=== PATIENT | male | born 1965 | race Caucasian/White ===

== ENCOUNTER 2021-03-15 14:18 | Inpatient (IN) | payer BC ==
[2021-03-15] MEDS ORDERED: Sodium Chloride 0.9% 10 ML Syringe FLUSH PRN (15:04)
[2021-03-15] MEDS ORDERED: Ondansetron 4 MG/2 ML SDV IVPUSH ONE (15:04)
[2021-03-15] MEDS ORDERED: Sodium Chloride 0.9% 1,000 ML IV SCH (15:15)
[2021-03-15 15:26] LABS: CORONAVIRUS COVID-19 NAA POSITIVE (NEGATIVE)
--- NOTE | 2021-03-15 16:32 | CR ---
Chest: Portable view of the chest was obtained. Comparison: No prior chest imaging is available. Diffuse increased density throughout the right lung is seen. Lesser density is also seen throughout the left lung. Heart size is normal. Tortuous thoracic aorta is seen. Bony structures show nothing acute. Impression: 1. Diffuse parenchymal densities within both sides of the chest, findings are suspicious for COVID-19 pneumonia. Please correlate. Diagnostic code #3
--- NOTE | 2021-03-15 16:35 | EDM.PDOC ---
ED HPI GENERAL MEDICAL PROBLEM - General Chief Complaint: Respiratory Problem Stated Complaint: [facility] Time Seen by Provider: 03/15/21 14:33 Source of Information: Reports: Patient, EMS History Limitations: Reports: No Limitations - History of Present Illness INITIAL COMMENTS - FREE TEXT/NARRATIVE: The patient presents by [facility] for shortness of breath and hypoxia. This started last Thursday. He was checked for COVID then and he was negative. He has gotten worse with fever, chills, cough, shortness of breath, nausea, and generalized weakness. He did not get vaccinated. He has not been able to eat or drink. He went to [facility] and his oxygen saturations were in the 60s. He came by EMS with a nonrebreather. We were able to get him on nasal cannula at 6L and he was 92%. He has no chest pain, abdominal pain or dysuria. He does have some diarrhea. He does not smoke. He has no lung problems like asthma or COPD. He does have a history of hypertension. Onset: Gradual Duration: Day(s): (9) Severity: Moderate Improves with: Reports: None Worsens with: Reports: None Associated Symptoms: Reports: Cough, Fever/Chills, Nausea/Vomiting, Shortness of Breath. Denies: Chest Pain, Headaches - Related Data Allergies Allergy/AdvReac Type Severity Reaction Status Date / Time No Known Allergies Allergy Verified 03/15/21 14:39 Home Meds: Home Meds Lisinopril/Hydrochlorothiazide [Lisinopril-Hctz 20-25 mg Tab] 1 tab PO DAILY 03/15/21 [History] Past Medical History Cardiovascular History: Reports: Hypertension Social & Family History - Tobacco Use Tobacco Use Status *Q: Never Tobacco User Second Hand Smoke Exposure: No - Caffeine Use Caffeine Use: Reports: None ED ROS GENERAL - Review of Systems Review Of Systems: See Below Constitutional: Reports: Fever, Chills, Malaise, Weakness, Fatigue HEENT: Reports: No Symptoms Respiratory: Reports: Shortness of Breath, Cough Cardiovascular: Reports: No Symptoms Endocrine: Reports: No Symptoms GI/Abdominal: Reports: Nausea. Denies: Abdominal Pain, Vomiting : Reports: No Symptoms Musculoskeletal: Reports: No Symptoms Skin: Reports: No Symptoms Neurological: Reports: No Symptoms ED EXAM, GENERAL - Physical Exam Exam: See Below Exam Limited By: No Limitations General Appearance: Alert, No Apparent Distress Ears: Normal External Exam Nose: Normal Inspection Head: Atraumatic, Normocephalic Neck: Normal Inspection Respiratory/Chest: No Respiratory Distress, Decreased Breath Sounds Cardiovascular: Regular Rate, Rhythm, No Edema, No Murmur GI/Abdominal: Soft, Non-Tender, No Organomegaly Back Exam: Normal Inspection Extremities: Normal Inspection #1 Interpretation EKG Date: 03/15/21 Time: 14:47 Rhythm: Other (sinus tachycardia) Rate (Beats/Min): 105 [place]: Normal P-Wave: Present QRS: Normal ST-T: Other (flattened T waves in the lateral leads) QT: Normal Course - Vital Signs Last Recorded V/S: Last Vital Signs Temp 99.1 F 03/15/21 14:38 Pulse 101 H 03/15/21 14:38 Resp 18 03/15/21 14:38 BP 129/77 03/15/21 14:38 Pulse Ox 90 L 03/15/21 15:56 - Orders/Labs/Meds Orders: Active Orders 24 hr Category Date Time Status Cardiac Monitoring [RC] . DIRECTED Care 03/15/21 15:04 Active Oxygen Therapy [RC] PRN Care 03/15/21 15:04 Active Peripheral IV Care [RC] . DIRECTED Care 03/15/21 15:04 Active Sodium Chloride 0.9% [Normal Saline] 1,000 ml Med 03/15/21 15:15 Active IV .BOLUS Sodium Chloride 0.9% [Saline Flush] Med 03/15/21 15:04 Active 10 ml FLUSH ASDIRECTED PRN ED Antiemetic Medication Reflex [OM.PC] Stat Oth 03/15/21 15:04 Ordered Peripheral IV Insertion Adult [OM.PC] Stat Oth 03/15/21 15:04 Ordered EKG 12 Lead [EK] Stat Ther 03/15/21 14:32 Ordered Medication Orders Sodium Chloride (Normal Saline) 1,000 mls @ 1,000 mls/hr IV .BOLUS KAR Last Admin: 03/15/21 15:53 Dose: 1,000 mls/hr Documented by: CHRIS Sodium Chloride (Sodium Chloride 0.9% 10 Ml Syringe) 10 ml FLUSH ASDIRECTED PRN PRN Reason: Keep Vein Open Last Admin: 03/15/21 15:53 Dose: 10 ml Documented by: CHRIS Labs: Laboratory Tests 03/15/21 03/15/21 03/15/21 Range/Units 14:25 15:42 15:42 WBC 13.47 H (4.23-9.07) K/mm3 RBC 4.81 (4.63-6.08) M/mm3 Hgb 14.2 (13.7-17.5) gm/dl Hct 41.9 (40.1-51.0) % MCV 87.1 (79.0-92.2) fl MCH 29.5 (25.7-32.2) pg MCHC 33.9 (32.2-35.5) g/dl RDW Std Deviation 43.3 (35.1-43.9) fL Plt Count 346 H (163-337) K/mm3 MPV 9.7 (9.4-12.3) fl Neut % (Auto) 84.2 H (34.0-67.9) % Lymph % (Auto) 4.5 L (21.8-53.1) % Stark % (Auto) 8.8 (5.3-12.2) % Eos % (Auto) 0.4 L (0.8-7.0) Baso % (Auto) 0.4 (0.1-1.2) % Neut # (Auto) 11.34 H (1.78-5.38) K/mm3 Lymph # (Auto) 0.61 L (1.32-3.57) K/mm3 Stark # (Auto) 1.18 H (0.30-0.82) K/mm3 Eos # (Auto) 0.06 (0.04-0.54) K/mm3 Baso # (Auto) 0.05 (0.01-0.08) K/mm3 Manual Slide Review PT 12.4 H (9.7-12.0) SECONDS INR 1.12 APTT 25.5 (21.7-31.4) SECONDS D-Dimer, Quantitative > 35.20 H (0.19-0.50) mg/L Sodium (136-145) mEq/L Potassium (3.5-5.1) mEq/L Chloride (98-107) mEq/L Carbon Dioxide (21-32) mEq/L Anion Gap (5-15) BUN (7-18) mg/dL Creatinine (0.7-1.3) mg/dL Est Cr Clr Drug Dosing mL/min Estimated GFR (MDRD) (>60) mL/min BUN/Creatinine Ratio (14-18) Glucose (70-99) mg/dL Lactic Acid (0.4-2.0) mmol/L Calcium (8.5-10.1) mg/dL Total Bilirubin (0.2-1.0) mg/dL AST (15-37) U/L ALT (16-63) U/L Alkaline Phosphatase (46-116) U/L C-Reactive Protein (<1.0) mg/dL Total Protein (6.4-8.2) g/dl Albumin (3.4-5.0) g/dl Globulin gm/dL Albumin/Globulin Ratio (1-2) Influenza Type A RNA Negative (NEGATIVE) Influenza Type B RNA Negative (NEGATIVE) SARS-CoV-2 RNA (RACHNA) Positive H (NEGATIVE) 03/15/21 03/15/21 Range/Units 15:42 15:42 WBC (4.23-9.07) K/mm3 RBC (4.63-6.08) M/mm3 Hgb (13.7-17.5) gm/dl Hct (40.1-51.0) % MCV (79.0-92.2) fl MCH (25.7-32.2) pg MCHC (32.2-35.5) g/dl RDW Std Deviation (35.1-43.9) fL Plt Count (163-337) K/mm3 MPV (9.4-12.3) fl Neut % (Auto) (34.0-67.9) % Lymph % (Auto) (21.8-53.1) % Stark % (Auto) (5.3-12.2) % Eos % (Auto) (0.8-7.0) Baso % (Auto) (0.1-1.2) % Neut # (Auto) (1.78-5.38) K/mm3 Lymph # (Auto) (1.32-3.57) K/mm3 Stark # (Auto) (0.30-0.82) K/mm3 Eos # (Auto) (0.04-0.54) K/mm3 Baso # (Auto) (0.01-0.08) K/mm3 Manual Slide Review PT (9.7-12.0) SECONDS INR APTT (21.7-31.4) SECONDS D-Dimer, Quantitative (0.19-0.50) mg/L Sodium 136 (136-145) mEq/L Potassium 3.4 L (3.5-5.1) mEq/L Chloride 98 (98-107) mEq/L Carbon Dioxide 30 (21-32) mEq/L Anion Gap 11.4 (5-15) BUN 17 (7-18) mg/dL Creatinine 1.2 (0.7-1.3) mg/dL Est Cr Clr Drug Dosing 70.13 mL/min Estimated GFR (MDRD) > 60 (>60) mL/min BUN/Creatinine Ratio 14.2 (14-18) Glucose 145 H (70-99) mg/dL Lactic Acid 1.9 (0.4-2.0) mmol/L Calcium 8.6 (8.5-10.1) mg/dL Total Bilirubin 0.7 (0.2-1.0) mg/dL AST 57 H (15-37) U/L ALT 95 H (16-63) U/L Alkaline Phosphatase 50 (46-116) U/L C-Reactive Protein 23.9 H* (<1.0) mg/dL Total Protein 7.0 (6.4-8.2) g/dl Albumin 2.5 L (3.4-5.0) g/dl Globulin 4.5 gm/dL Albumin/Globulin Ratio 0.6 L (1-2) Influenza Type A RNA (NEGATIVE) Influenza Type B RNA (NEGATIVE) SARS-CoV-2 RNA (RACHNA) (NEGATIVE) Meds: Medications Generic Name Dose Route Start Last Admin Trade Name Freq PRN Reason Stop Dose Admin Sodium Chloride 1,000 mls @ 1,000 mls/hr 03/15/21 15:15 03/15/21 15:53 Normal Saline IV 1,000 mls/hr .BOLUS KAR Administration Sodium Chloride 10 ml 03/15/21 15:04 03/15/21 15:53 Sodium Chloride 0.9% 10 Ml Syringe FLUSH 10 ml ASDIRECTED PRN Administration Keep Vein Open Discontinued Medications Generic Name Dose Route Start Last Admin Trade Name Freq PRN Reason Stop Dose Admin Apixaban 10 mg 03/15/21 17:25 03/15/21 17:40 Apixaban 5 Mg Tab PO 03/15/21 17:26 10 mg ONETIME ONE Administration Dexamethasone 6 mg 03/15/21 16:42 03/15/21 17:26 Dexamethasone 4 Mg/Ml Sdv IVPUSH 03/15/21 16:43 6 mg ONETIME ONE Administration Remdesivir 200 mg/ Sodium 250 mls @ 250 mls/hr 03/15/21 16:42 03/15/21 17:26 Chloride IV 03/15/21 16:43 250 mls/hr ONETIME ONE Administration Ondansetron HCl 4 mg 03/15/21 15:04 03/15/21 15:53 Ondansetron 4 Mg/2 Ml Sdv IVPUSH 03/15/21 15:05 4 mg ONETIME ONE Administration - Re-Assessments/Exams Free Text/Narrative Re-Assessment/Exam: 03/15/21 16:39 I ordered oxygen, IV NS 1L bolus, zofran 4mg IV, EKG, CXR and labs. His EKG shows a sinus tachycardia with no acute changes. His WBC was elevated at 13.47. His D-dimer was elevated at >35.2. His K was a little low at 3.4. His glucose was elevated at 145. His AST was elevated at 57. His ALT was elevated at 95. His CRP was elevated at 23.9. He is COVID positive. His CXR shows bilateral COVID pneumonia. I have ordered a CT angio of his chest, remdesivir, and dexamethasone. 03/15/21 17:[address] angio of his chest shows slight pulmonary emboli within the right lower segmental and subsegmental pulmonary arteries. No findings of right heart dysfunction are seen. Dilated left proximal ureter and left kidney collecting system. Difficult to exclude an nonvisualized left ureteral obstruction. Nonobstructing calculi are seen within both kidneys. Minimal cortical cyst is also noted within the left kidney. CT abdomen would be needed to further evaluate if clinically indicated. Diffuse change of bilateral COVID 19 pneumonia. I have ordered a CT of his abdomen and pelvis without contrast. 03/15/21 18:14 I feel this patient needs to be admitted. I talked with our hospitalist Dr Aj and he agreed to the admission. 03/15/21 18:[address] of his abdomen and pelvis shows dilated collecting system within the left kidney, contrast from previous chest CT is seen within the kidney. Contrast is also noted with the left ureter. There is change in contrast diameter within the proximal ureter. Difficult to completely exclude area of scarring or even early transitional cell carcinoma as on etiology for the contrast caliber change. Recommend referral to urologist at some time to further evaluate. Changes of COVID-19 pneumonia within the both lung bases. Other findings believed to be incidental. No additional abnormality is identified on noncontrast CT study of the abdomen and pelvis which shows contrast because of earlier CT exam. Departure - Departure Time of Disposition: 18:50 Disposition: Admitted As Inpatient 64 Condition: Serious Clinical Impression: Hypoxia, COVID-19, Pneumonia due to COVID-19 virus, Left ureter dilated Pulmonary emboli Qualifiers: Pulmonary embolism type: other Chronicity: acute Acute cor pulmonale presence: without acute cor pulmonale Qualified Code(s): I26.99 - Other pulmonary embolism without acute cor pulmonale - Discharge Information Referrals: Ana M Goldstein NP [Primary Care Provider] - Forms: ED Department Discharge Sepsis Event Note (ED) - Focused Exam Vital Signs: Vital Signs Temp Pulse Resp BP Pulse Ox Pulse Ox 03/15/21 15:56 90 L 03/15/21 14:38 99.1 F 101 H 18 129/77 93 L - My Orders Last 24 Hours: My Active Orders 03/15/21 14:32 EKG 12 Lead [EK] Stat 03/15/21 15:04 Cardiac Monitoring [RC] . DIRECTED Oxygen Therapy [RC] PRN Peripheral IV Care [RC] . DIRECTED Sodium Chloride 0.9% [Saline Flush] 10 ml FLUSH ASDIRECTED PRN ED Antiemetic Medication Reflex [OM.PC] Stat Peripheral IV Insertion Adult [OM.PC] Stat 03/15/21 15:15 Sodium Chloride 0.9% [Normal Saline] 1,000 ml IV .BOLUS - Assessment/Plan Last 24 Hours: My Active Orders 03/15/21 14:32 EKG 12 Lead [EK] Stat 03/15/21 15:04 Cardiac Monitoring [RC] . DIRECTED Oxygen Therapy [RC] PRN Peripheral IV Care [RC] . DIRECTED Sodium Chloride 0.9% [Saline Flush] 10 ml FLUSH ASDIRECTED PRN ED Antiemetic Medication Reflex [OM.PC] Stat Peripheral IV Insertion Adult [OM.PC] Stat 03/15/21 15:15 Sodium Chloride 0.9% [Normal Saline] 1,000 ml IV .BOLUS
[2021-03-15] MEDS ORDERED: Dexamethasone 4 MG/ML SDV IVPUSH ONE (16:42)
[2021-03-15] MEDS ORDERED: REMDESIVIR 200 MG in Sodium Chloride 0.9% 250 ML IV ONE (16:42)
[2021-03-15] MEDS ORDERED: Apixaban 5 MG Tab PO ONE (17:25)
--- NOTE | 2021-03-15 17:25 | CT ---
CT chest Technique: Multiple axial sections were obtained from above the lung apices inferiorly through the lung bases. Intravenous contrast was utilized. Study has been performed as a pulmonary angiogram protocol. Comparison: Prior chest x-ray performed earlier on the same day (3:06 PM). Findings: Pulmonary arteries are not optimally opacified. There are some filling defects being seen within the segmental and subsegmental branches within the right lower lobe which are felt compatible with pulmonary emboli. Thoracic aorta shows no aneurysm. Small lymph nodes are seen within the mediastinum which are felt to be within normal limits. No axillary adenopathy is seen. No pericardial thickening is seen. No right heart dysfunction is seen Visualized upper abdominal structures show a slightly dilated proximal left ureter and dilated renal pelvis and calyces. Difficult to exclude a ureteral obstruction on this exam. There are 2 stones seen within the left kidney and one stone within the right kidney compatible with nonobstructing calculi. Left kidney shows a small cortical cyst measuring 1.0 cm. Other portions of the visualized upper abdominal structures appear within normal limits. Lung window settings were reviewed which show diffuse pulmonary densities within both lungs, worse on the right side. No pleural effusions are seen. Bone window settings were reviewed which show minimal degenerative change within the thoracic spine. Old fracture is seen within a left lower rib. No acute osseous finding is seen. Impression: 1. Slight pulmonary emboli within the right lower segmental and subsegmental pulmonary arteries. No findings of right heart dysfunction are seen. 2. Dilated left proximal ureter and left kidney collecting system. Difficult to exclude a nonvisualized left ureteral obstruction. Nonobstructing calculi are seen within both kidneys. Minimal cortical cyst is also noted within the left kidney. CT abdomen would be needed to further evaluate if clinically indicated. 3. Diffuse change of bilateral COVID-19 pneumonia. Diagnostic code #5 Report was discussed with Dr. Ceja on 03/15/21, 5:22 PM [facility].
--- NOTE | 2021-03-15 18:40 | CT ---
CT abdomen and pelvis Technique: Multiple axial sections were obtained from above the dome of the diaphragm inferiorly through the pubic symphysis. Intravenous contrast is seen from prior CT chest. No oral contrast has been given. Reconstructed coronal and sagittal images were obtained. Comparison: No prior CT abdomen or pelvis studies available. Findings: Patchy increased density is noted within both lung bases. Liver shows no focal parenchymal abnormality. Spleen size is normal. Adrenal glands show no nodule. Pancreas is within normal limits. Gallbladder contains no calcified gallstones. Kidneys show contrast excretion. Dilated collecting system is seen within the left kidney. Left ureter is diffusely opacified. Right ureter is not completely opacified which is normal. The proximal left ureter is dilated. At the level of caliber change there is minimal irregularity within the contrast column of the ureter. This is nondescript regarding etiology. No definite obstruction of the left ureter seen. Contrast is noted within the bladder. Abdominal aorta shows no aneurysm. No retroperitoneal adenopathy is seen. No mesenteric abnormalities are seen. Fat containing umbilical hernia is noted. Appendix is seen which is normal in size. No pelvic mass or adenopathy is seen. Bone window settings were reviewed which show disc space narrowing at L5-S1. Mild disc space narrowing is noted at L2-3. Mild scattered endplate osteophytes are seen. Impression: 1. Dilated collecting system within the left kidney, contrast from previous chest CT is seen within the kidney. Contrast is also noted within the left ureter. There is change in contrast diameter within the proximal ureter. Difficult to completely exclude area of scarring or even early transitional cell carcinoma as an etiology for the contrast caliber change. Recommend referral to urologist at some time to further evaluate. 2. Changes of COVID-19 pneumonia within the both lung bases. 3. Other findings believed to be incidental as described above. 4. No additional abnormality is identified on noncontrast CT study of the abdomen and pelvis which shows contrast because of earlier CT exam. Diagnostic code #3
[2021-03-16] MEDS ORDERED: Acetaminophen 325 MG Tab PO PRN ×2 (00:09→06:45)
--- NOTE | 2021-03-16 06:43 | PCM.HP.2 ---
H&P History of Present Illness - General Date of Service: 03/16/21 Admit Problem/Dx: Admission Diagnosis/Problem Admission Diagnosis/Problem acute respiratory failure associated with COVID-19 pneumonia and pulmonary emboli. Source of Information: Patient History Limitations: Reports: No Limitations - History of Present Illness Initial Comments - Free Text/Narative: The patient is a 55-year-old gentleman who had been brought to the emergency department via [facility] for shortness of breath and hypoxia. The patient was found to be positive for Covid 19 pneumonia. The patient says that his symptoms started 4 days ago. He did have oxygen saturations in the low 60s. The patient's main concern at this time is severe shortness of breath. Patient also reports fever and chills. He has had weakness. The patient had CT scan done in the emergency department which is shown bilateral pulmonary emboli. The patient otherwise has been healthy and has been taking medication for hypertension. Not using tobacco. Onset of Symptoms: Reports: Gradual Duration of Symptoms: Reports: Day(s):, Getting Worse Location: Reports: Generalized Severity: Mild Improves with: Reports: Rest, Other (Oxygen support) Worsens with: Reports: Movement Context: Reports: Sick Contact, Other (COVID-19 pneumonia) Associated Symptoms: Reports: Cough, Diaphoresis, Fever/Chills - Related Data Allergies/Adverse Reactions: Allergies Allergy/AdvReac Type Severity Reaction Status Date / Time No Known Allergies Allergy Verified 03/15/21 14:39 Home Medications: Home Meds Lisinopril/Hydrochlorothiazide [Lisinopril-Hctz 20-25 mg Tab] 1 tab PO DAILY 03/15/21 [History] Past Medical History HEENT History: Reports: None Cardiovascular History: Reports: Hypertension Respiratory History: Reports: None Gastrointestinal History: Reports: None Genitourinary History: Reports: None Musculoskeletal History: Reports: None Neurological History: Reports: None Psychiatric History: Reports: None Endocrine/Metabolic History: Reports: None Hematologic History: Reports: None Immunologic History: Reports: None Oncologic (Cancer) History: Reports: None Dermatologic History: Reports: None - Infectious Disease History Infectious Disease History: Reports: Chicken Pox Social & Family History - Family History Family Medical History: Unobtainable - Tobacco Use Tobacco Use Status *Q: Never Tobacco User Second Hand Smoke Exposure: No - Caffeine Use Caffeine Use: Reports: None - Recreational Drug Use Recreational Drug Use: No - Living Situation & Occupation Living situation: Reports: , with Spouse Occupation: Employed H&P Review of Systems - Review of Systems: Review Of Systems: See Below General: Reports: Fever, Chills, Weakness HEENT: Reports: No Symptoms Pulmonary: Reports: Shortness of Breath, Cough, Sputum Cardiovascular: Reports: No Symptoms Gastrointestinal: Reports: No Symptoms Genitourinary: Reports: No Symptoms Musculoskeletal: Reports: No Symptoms Skin: Reports: No Symptoms Psychiatric: Reports: No Symptoms Neurological: Reports: No Symptoms Hematologic/Lymphatic: Reports: No Symptoms Immunologic: Reports: No Symptoms Exam - Exam Exam: See Below - Vital Signs Vital Signs: Last Vital Signs Temp 36.6 C 03/16/21 05:14 Pulse 72 03/16/21 05:14 Resp 20 03/16/21 05:14 BP 94/47 L 03/16/21 05:14 Pulse Ox 92 L 03/16/21 05:14 Weight: 87.952 kg - Exam Quality Assessment: Supplemental Oxygen, DVT Prophylaxis General: Alert, Oriented, Cooperative HEENT: Conjunctiva Clear, EACs Clear, EOMI, Hearing Intact, Mucosa Moist & [place], PERRLA Neck: Supple, Trachea Midline Lungs: Decreased Breath Sounds, Crackles, Rales Cardiovascular: Regular Rate, Regular Rhythm GI/Abdominal Exam: Normal Bowel Sounds, Soft, Non-Tender, No Distention (Male) Exam: Deferred Rectal (Males) Exam: Deferred Back Exam: Normal Inspection, Full Range of Motion Extremities: Normal Inspection, No Pedal Edema Skin: Warm, Dry, Intact Neurological: Cranial Nerves Intact, Strength Equal Bilateral, Normal Gait, N ormal Speech Neuro Extensive - Mental Status: Alert, Oriented x3 Psychiatric: Alert, Normal Affect, Normal Mood - Patient Data Lab Results Last 24 hrs: Laboratory Results - last 24 hr 03/15/21 03/15/21 03/15/21 Range/Units 14:25 15:42 15:42 WBC 13.47 H (4.23-9.07) K/mm3 RBC 4.81 (4.63-6.08) M/mm3 Hgb 14.2 (13.7-17.5) gm/dl Hct 41.9 (40.1-51.0) % MCV 87.1 (79.0-92.2) fl MCH 29.5 (25.7-32.2) pg MCHC 33.9 (32.2-35.5) g/dl RDW Std Deviation 43.3 (35.1-43.9) fL Plt Count 346 H (163-337) K/mm3 MPV 9.7 (9.4-12.3) fl Neut % (Auto) 84.2 H (34.0-67.9) % Lymph % (Auto) 4.5 L (21.8-53.1) % [place] % (Auto) 8.8 (5.3-12.2) % Eos % (Auto) 0.4 L (0.8-7.0) Baso % (Auto) 0.4 (0.1-1.2) % Neut # (Auto) 11.34 H (1.78-5.38) K/mm3 Lymph # (Auto) 0.61 L (1.32-3.57) K/mm3 [place] # (Auto) 1.18 H (0.30-0.82) K/mm3 Eos # (Auto) 0.06 (0.04-0.54) K/mm3 Baso # (Auto) 0.05 (0.01-0.08) K/mm3 Manual Slide Review PT 12.4 H (9.7-12.0) SECONDS INR 1.12 APTT 25.5 (21.7-31.4) SECONDS D-Dimer, Quantitative > 35.20 H (0.19-0.50) mg/L Sodium (136-145) mEq/L Potassium (3.5-5.1) mEq/L Chloride (98-107) mEq/L Carbon Dioxide (21-32) mEq/L Anion Gap (5-15) BUN (7-18) mg/dL Creatinine (0.7-1.3) mg/dL Est Cr Clr Drug Dosing mL/min Estimated GFR (MDRD) (>60) mL/min BUN/Creatinine Ratio (14-18) Glucose (70-99) mg/dL Lactic Acid (0.4-2.0) mmol/L Calcium (8.5-10.1) mg/dL Total Bilirubin (0.2-1.0) mg/dL AST (15-37) U/L ALT (16-63) U/L Alkaline Phosphatase (46-116) U/L C-Reactive Protein (<1.0) mg/dL Total Protein (6.4-8.2) g/dl Albumin (3.4-5.0) g/dl Globulin gm/dL Albumin/Globulin Ratio (1-2) Influenza Type A RNA Negative (NEGATIVE) Influenza Type B RNA Negative (NEGATIVE) SARS-CoV-2 RNA (RACHNA) Positive H (NEGATIVE) 03/15/21 03/15/21 Range/Units 15:42 15:42 WBC (4.23-9.07) K/mm3 RBC (4.63-6.08) M/mm3 Hgb (13.7-17.5) gm/dl Hct (40.1-51.0) % MCV (79.0-92.2) fl MCH (25.7-32.2) pg MCHC (32.2-35.5) g/dl RDW Std Deviation (35.1-43.9) fL Plt Count (163-337) K/mm3 MPV (9.4-12.3) fl Neut % (Auto) (34.0-67.9) % Lymph % (Auto) (21.8-53.1) % [place] % (Auto) (5.3-12.2) % Eos % (Auto) (0.8-7.0) Baso % (Auto) (0.1-1.2) % Neut # (Auto) (1.78-5.38) K/mm3 Lymph # (Auto) (1.32-3.57) K/mm3 [place] # (Auto) (0.30-0.82) K/mm3 Eos # (Auto) (0.04-0.54) K/mm3 Baso # (Auto) (0.01-0.08) K/mm3 Manual Slide Review PT (9.7-12.0) SECONDS INR APTT (21.7-31.4) SECONDS D-Dimer, Quantitative (0.19-0.50) mg/L Sodium 136 (136-145) mEq/L Potassium 3.4 L (3.5-5.1) mEq/L Chloride 98 (98-107) mEq/L Carbon Dioxide 30 (21-32) mEq/L Anion Gap 11.4 (5-15) BUN 17 (7-18) mg/dL Creatinine 1.2 (0.7-1.3) mg/dL Est Cr Clr Drug Dosing 70.13 mL/min Estimated GFR (MDRD) > 60 (>60) mL/min BUN/Creatinine Ratio 14.2 (14-18) Glucose 145 H (70-99) mg/dL Lactic Acid 1.9 (0.4-2.0) mmol/L Calcium 8.6 (8.5-10.1) mg/dL Total Bilirubin 0.7 (0.2-1.0) mg/dL AST 57 H (15-37) U/L ALT 95 H (16-63) U/L Alkaline Phosphatase 50 (46-116) U/L C-Reactive Protein 23.9 H* (<1.0) mg/dL Total Protein 7.0 (6.4-8.2) g/dl Albumin 2.5 L (3.4-5.0) g/dl Globulin 4.5 gm/dL Albumin/Globulin Ratio 0.6 L (1-2) Influenza Type A RNA (NEGATIVE) Influenza Type B RNA (NEGATIVE) SARS-CoV-2 RNA (RACHNA) (NEGATIVE) Result Diagrams: 03/15/21 15:42 03/15/21 15:42 Sepsis Event Note - Evaluation Sepsis Screening Result: Sepsis Risk - Focused Exam Vital Signs: Vital Signs Temp Temp Pulse Pulse Resp BP BP 03/16/21 05:14 36.6 C 72 20 94/47 L 03/16/21 00:15 70 03/15/21 21:17 92 03/15/21 21:12 36.8 C 92 27 H 136/82 03/15/21 21:00 36.9 C 94 18 137/81 Pulse Ox 03/16/21 05:14 92 L 03/16/21 00:15 93 L 03/15/21 21:17 88 L 03/15/21 21:12 85 L 03/15/21 21:00 90 L - Problem List (1) Acute respiratory failure due to COVID-19 SNOMED Code(s): 048023681 ICD Code: U07.1 - COVID-19; J96.00 - ACUTE RESPIRATORY FAILURE, UNSP W HYPO TERESA OR HYPERCAPNIA Status: Acute Priority: High Current Visit: Yes (2) Pulmonary emboli SNOMED Code(s): 96191829 ICD Code: I26.99 - OTHER PULMONARY EMBOLISM WITHOUT ACUTE COR PULMONALE Status: Acute Priority: High Current Visit: Yes Qualifiers: Pulmonary embolism type: multiple subsegmental (without acute cor pulmonale) Qualified Code(s): I26.94 - Multiple subsegmental pulmonary emboli without acute cor pulmonale (3) Pneumonia due to COVID-19 virus SNOMED Code(s): 616559980369913505 ICD Code: U07.1 - COVID-19; J12.82 - PNEUMONIA DUE TO CORONAVIRUS DISEASE 2019 Status: Acute Priority: High Current Visit: Yes (4) Hypertension SNOMED Code(s): 48979359 ICD Code: I10 - ESSENTIAL (PRIMARY) HYPERTENSION Status: Chronic Priority: Medium Current Visit: Yes Qualifiers: Hypertension type: primary hypertension Qualified Code(s): I10 - Essential (primary) hypertension Problem List Initiated/Reviewed/Updated: Yes Orders Last 24hrs: Active Orders 24 hr Category Date Time Status Patient Status [ADT] Routine ADT 03/15/21 18:57 Active Bedrest [RC] BID Care 03/16/21 00:08 Active Cardiac Monitoring [RC] . DIRECTED Care 03/15/21 15:04 Active Incentive Spirometry [RT Incentive Spirometry] [RC] Care 03/16/21 00:36 Active Q1HWA Oxygen Therapy Adult [Oxygen Therapy] [RC] ASDIRECTED Care 03/16/21 00:08 Active Regular Diet [DIET] Diet 03/16/21 Breakfast Active Acetaminophen [TylenoL] Med 03/16/21 00:09 Active 975 mg PO Q4H PRN Apixaban [Eliquis] Med 03/16/21 09:00 Active 5 mg PO DAILY Remdesivir 100 mg Med 03/16/21 17:00 Active Sodium Chloride 0.9% [Normal Saline] 250 ml IV Q24H Sodium Chloride 0.9% [Normal Saline] 1,000 ml Med 03/15/21 15:15 Active IV .BOLUS Sodium Chloride 0.9% [Saline Flush] Med 03/15/21 15:04 Active 10 ml FLUSH ASDIRECTED PRN dexAMETHasone Med 03/16/21 16:00 Active 12 mg IV Q24H Peripheral IV Insertion Adult [OM.PC] Stat Oth 03/15/21 15:04 Ordered Pulse Oximetry Continuous Monitoring [OM.PC] Routine Oth 03/16/21 00:18 Active Code Status [Resuscitation Status] Routine Resus Stat 03/16/21 00:36 Ordered EKG 12 Lead [EK] Stat Ther 03/15/21 14:32 Ordered Medication Orders Acetaminophen (Acetaminophen 325 Mg Tab) 975 mg PO Q4H PRN PRN Reason: Pain/Fever Apixaban (Apixaban 5 Mg Tab) 5 mg PO DAILY KAR Dexamethasone (Dexamethasone 4 Mg/Ml 5 Ml Mdv) 12 mg IV Q24H KAR Sodium Chloride (Normal Saline) 1,000 mls @ 1,000 mls/hr IV .BOLUS KAR Last Admin: 03/15/21 15:53 Dose: 1,000 mls/hr Documented by: CHRIS Remdesivir 100 mg/ Sodium (Chloride) 250 mls @ 250 mls/hr IV Q24H KAR Stop: 03/19/21 17:01 Sodium Chloride (Sodium Chloride 0.9% 10 Ml Syringe) 10 ml FLUSH ASDIRECTED PRN PRN Reason: Keep Vein Open Last Admin: 03/15/21 15:53 Dose: 10 ml Documented by: CHRIS Assessment/Plan Comment:: The patient is a 55-year-old gentleman who had been admitted to acute hospitalization due to COVID-19 pneumonia and bilateral pulmonary emboli. The patient has been started on loading dose of Eliquis at 10 mg p.o. twice daily. The patient will have oxygen to keep his saturations at and around 92%. Patient had 1 200 mg dose of remdesivir in the emergency department and he will have ordered 4 doses of 100 mg IV remdesivir. Patient also has been placed on 6 mg p.o. daily of dexamethasone. The patient has been restarted on his antihypertensive medications and his vital signs will be monitored and his medications adjusted appropriately. The patient has been encouraged to ambulate. He will have regular diet as tolerated. Repeat laboratory studies have been ordered for the morning. The patient should be appropriate for discharge after completion of the remdesivir. - Mortality Measure Prognosis:: Good
[2021-03-16] MEDS ORDERED: oxyCODONE 5 MG Tab PO PRN (06:45)
[2021-03-16] MEDS ORDERED: Ondansetron 4 MG Tab.DIS PO PRN (06:45)
[2021-03-16] MEDS ORDERED: Temazepam 15 MG Cap PO PRN (06:45)
[2021-03-16] MEDS ORDERED: Docusate Sodium 100 MG Cap PO PRN (06:45)
[2021-03-16] MEDS ORDERED: Morphine 2 MG/ML SYRINGE IVPUSH PRN (06:45)
[2021-03-16] MEDS ORDERED: Apixaban 5 MG Tab PO SCH (09:00)
[2021-03-16] MEDS: Lisinopril 20 MG Tab PO SCH (09:23)
[2021-03-16] MEDS: Hydrochlorothiazide 25 MG Tab PO SCH (09:23)
[2021-03-16] MEDS: Apixaban 5 MG Tab PO SCH ×2 (09:23→20:45)
[2021-03-16] MEDS: Albuterol/Ipratropium 3.0-0.5 MG/3 ML Neb Soln NEB PRN ×3 (09:46→17:54)
[2021-03-16] MEDS: REMDESIVIR 100 MG in Sodium Chloride 0.9% 250 ML IV SCH (17:03)
[2021-03-16] MEDS: Dexamethasone 4 MG/ML 5 ML MDV IV SCH (17:03)
[2021-03-17] MEDS: Albuterol/Ipratropium 3.0-0.5 MG/3 ML Neb Soln NEB PRN ×5 (02:20→18:05)
--- NOTE | 2021-03-17 07:29 | PCM.PN ---
- General Info Date of Service: 03/17/21 Admission Dx/Problem (Free Text): Admission Diagnosis/Problem Admission Diagnosis/Problem acute respiratory failure associated with COVID-19 pneumonia and pulmonary emboli. Subjective Update: The patient is a 55-year-old gentleman who was admitted yesterday through the emergency department for COVID-19 pneumonia and bilateral pulmonary emboli. Patient today says that he is doing better. He has been breathing better. The patient has denied any new pain. He has been tolerating his diet. Functional Status: Reports: Pain Controlled, Tolerating Diet. Denies: New Symptoms - Review of Systems General: Reports: No Symptoms HEENT: Reports: No Symptoms Pulmonary: Reports: Shortness of Breath, Cough Cardiovascular: Reports: No Symptoms Gastrointestinal: Reports: No Symptoms Genitourinary: Reports: No Symptoms Musculoskeletal: Reports: No Symptoms Skin: Reports: No Symptoms Neurological: Reports: No Symptoms Psychiatric: Reports: No Symptoms - Patient Data Vitals - Most Recent: Last Vital Signs Temp 37.5 C 03/17/21 04:40 Pulse 83 03/17/21 04:40 Resp 18 03/17/21 04:40 BP 112/62 03/17/21 04:40 Pulse Ox 91 L 03/17/21 06:22 Weight - Most Recent: 90.628 kg I&O - Last 24 Hours: Intake & Output 03/16/21 03/17/21 03/17/21 22:59 06:59 14:59 Intake Total 1550 800 Output Total 1400 1050 Balance 150 -250 Lab Results Last 24 Hours: Laboratory Results - last 24 hr 03/17/21 03/17/21 03/17/21 Range/Units 05:18 05:18 05:18 WBC 14.84 H (4.23-9.07) K/mm3 RBC 4.22 L (4.63-6.08) M/mm3 Hgb 12.3 L D (13.7-17.5) gm/dl Hct 36.9 L (40.1-51.0) % MCV 87.4 (79.0-92.2) fl MCH 29.1 (25.7-32.2) pg MCHC 33.3 (32.2-35.5) g/dl RDW Std Deviation 42.2 (35.1-43.9) fL Plt Count 295 (163-337) K/mm3 MPV 9.9 (9.4-12.3) fl Neut % (Auto) 87.5 H (34.0-67.9) % Lymph % (Auto) 4.1 L (21.8-53.1) % [place] % (Auto) 6.3 (5.3-12.2) % Eos % (Auto) 0 L (0.8-7.0) Baso % (Auto) 0.1 (0.1-1.2) % Neut # (Auto) 12.99 H (1.78-5.38) K/mm3 Lymph # (Auto) 0.61 L (1.32-3.57) K/mm3 [place] # (Auto) 0.93 H (0.30-0.82) K/mm3 Eos # (Auto) 0.00 L (0.04-0.54) K/mm3 Baso # (Auto) 0.02 (0.01-0.08) K/mm3 Manual Slide Review Normal smear D-Dimer, Quantitative > 35.20 H (0.19-0.50) mg/L Sodium 136 (136-145) mEq/L Potassium 3.8 (3.5-5.1) mEq/L Chloride 101 (98-107) mEq/L Carbon Dioxide 27 (21-32) mEq/L Anion Gap 11.8 (5-15) BUN 24 H (7-18) mg/dL Creatinine 1.0 (0.7-1.3) mg/dL Est Cr Clr Drug Dosing 84.15 mL/min Estimated GFR (MDRD) > 60 (>60) mL/min BUN/Creatinine Ratio 24.0 H (14-18) Glucose 200 H (70-99) mg/dL Calcium 8.1 L (8.5-10.1) mg/dL Magnesium 2.1 (1.8-2.4) mg/dL Total Bilirubin 0.3 (0.2-1.0) mg/dL AST 60 H (15-37) U/L ALT 108 H (16-63) U/L Alkaline Phosphatase 48 (46-116) U/L C-Reactive Protein 11.7 H* (<1.0) mg/dL Total Protein 5.8 L (6.4-8.2) g/dl Albumin 2.2 L (3.4-5.0) g/dl Globulin 3.6 gm/dL Albumin/Globulin Ratio 0.6 L (1-2) Med Orders - Current: Current Medications Acetaminophen (Acetaminophen 325 Mg Tab) 650 mg PO Q4H PRN PRN Reason: Pain (Mild 1-3)/fever Albuterol/Ipratropium (Albuterol/Ipratropium 3.0-0.5 Mg/3 Ml Neb Soln) 3 ml NEB Q4H PRN PRN Reason: Shortness Of Breath/wheezing Last Admin: 03/17/21 06:10 Dose: 3 ml Documented by: Apixaban (Apixaban 5 Mg Tab) 10 mg PO BID [facility] Last Admin: 03/16/21 20:45 Dose: 10 mg Documented by: Dexamethasone (Dexamethasone 4 Mg/Ml 5 Ml Mdv) 12 mg IV Q24H [facility] Last Admin: 03/16/21 17:03 Dose: 12 mg Documented by: Docusate Sodium (Docusate Sodium 100 Mg Cap) 100 mg PO BID PRN PRN Reason: Constipation Hydrochlorothiazide (Hydrochlorothiazide 25 Mg Tab) 25 mg PO DAILY [facility] Last Admin: 03/16/21 09:23 Dose: 25 mg Documented by: Remdesivir 100 mg/ Sodium (Chloride) 250 mls @ 250 mls/hr IV Q24H [facility] Stop: 03/19/21 17:01 Last Admin: 03/16/21 17:03 Dose: 250 mls/hr Documented by: Lisinopril (Lisinopril 20 Mg Tab) 20 mg PO DAILY [facility] Last Admin: 03/16/21 09:23 Dose: 20 mg Documented by: Ondansetron HCl (Ondansetron 4 Mg Tab.Dis) 4 mg PO Q4H PRN PRN Reason: nausea, able to take PO Oxycodone HCl (Oxycodone 5 Mg Tab) 5 mg PO Q4H PRN PRN Reason: Pain (moderate 4-6) Sodium Chloride (Sodium Chloride 0.9% 10 Ml Syringe) 10 ml FLUSH ASDIRECTED PRN PRN Reason: Keep Vein Open Last Admin: 03/15/21 15:53 Dose: 10 ml Documented by: Temazepam (Temazepam 15 Mg Cap) 15 mg PO BEDTIME PRN PRN Reason: Sleep Discontinued Medications Acetaminophen (Acetaminophen 325 Mg Tab) 975 mg PO Q4H PRN PRN Reason: Pain/Fever Apixaban (Apixaban 5 Mg Tab) 10 mg PO ONETIME ONE Stop: 03/15/21 17:26 Last Admin: 03/15/21 17:40 Dose: 10 mg Documented by: Apixaban (Apixaban 5 Mg Tab) 5 mg PO DAILY KAR Dexamethasone (Dexamethasone 4 Mg/Ml Sdv) 6 mg IVPUSH ONETIME ONE Stop: 03/15/21 16:43 Last Admin: 03/15/21 17:26 Dose: 6 mg Documented by: Sodium Chloride (Normal Saline) 1,000 mls @ 1,000 mls/hr IV .BOLUS KAR Last Admin: 03/15/21 15:53 Dose: 1,000 mls/hr Documented by: Remdesivir 200 mg/ Sodium (Chloride) 250 mls @ 250 mls/hr IV ONETIME ONE Stop: 03/15/21 16:43 Last Admin: 03/15/21 17:26 Dose: 250 mls/hr Documented by: Morphine Sulfate (Morphine 2 Mg/Ml Syringe) 2 mg IVPUSH Q2H PRN PRN Reason: Pain (severe 7-10) Stop: 03/17/21 06:45 Ondansetron HCl (Ondansetron 4 Mg/2 Ml Sdv) 4 mg IVPUSH ONETIME ONE Stop: 03/15/21 15:05 Last Admin: 03/15/21 15:53 Dose: 4 mg Documented by: - Exam Quality Assessment: Supplemental Oxygen, DVT Prophylaxis General: Alert, Oriented, Cooperative, No Acute Distress HEENT: Pupils Equal, Pupils Reactive, EOMI, Mucous Membr. Moist/[place] Neck: Supple, Trachea Midline Lungs: Normal Respiratory Effort, Rales ([place]) Cardiovascular: Regular Rate, Regular Rhythm GI/Abdominal Exam: Normal Bowel Sounds, Soft, Non-Tender, No Distention (Male) Exam: Deferred Back Exam: Normal Inspection, Full Range of Motion Extremities: Normal Inspection, Normal Range of Motion, No Pedal Edema Skin: Warm, Dry, Intact Neurological: No New Focal Deficit, Normal Gait Psy/Mental Status: Alert, Normal Affect, Normal Mood - Patient Data Lab Results Last 24 hrs: Laboratory Results - last 24 hr 03/17/21 03/17/21 03/17/21 Range/Units 05:18 05:18 05:18 WBC 14.84 H (4.23-9.07) K/mm3 RBC 4.22 L (4.63-6.08) M/mm3 Hgb 12.3 L D (13.7-17.5) gm/dl Hct 36.9 L (40.1-51.0) % MCV 87.4 (79.0-92.2) fl MCH 29.1 (25.7-32.2) pg MCHC 33.3 (32.2-35.5) g/dl RDW Std Deviation 42.2 (35.1-43.9) fL Plt Count 295 (163-337) K/mm3 MPV 9.9 (9.4-12.3) fl Neut % (Auto) 87.5 H (34.0-67.9) % Lymph % (Auto) 4.1 L (21.8-53.1) % [place] % (Auto) 6.3 (5.3-12.2) % Eos % (Auto) 0 L (0.8-7.0) Baso % (Auto) 0.1 (0.1-1.2) % Neut # (Auto) 12.99 H (1.78-5.38) K/mm3 Lymph # (Auto) 0.61 L (1.32-3.57) K/mm3 [place] # (Auto) 0.93 H (0.30-0.82) K/mm3 Eos # (Auto) 0.00 L (0.04-0.54) K/mm3 Baso # (Auto) 0.02 (0.01-0.08) K/mm3 Manual Slide Review Normal smear D-Dimer, Quantitative > 35.20 H (0.19-0.50) mg/L Sodium 136 (136-145) mEq/L Potassium 3.8 (3.5-5.1) mEq/L Chloride 101 (98-107) mEq/L Carbon Dioxide 27 (21-32) mEq/L Anion Gap 11.8 (5-15) BUN 24 H (7-18) mg/dL Creatinine 1.0 (0.7-1.3) mg/dL Est Cr Clr Drug Dosing 84.15 mL/min Estimated GFR (MDRD) > 60 (>60) mL/min BUN/Creatinine Ratio 24.0 H (14-18) Glucose 200 H (70-99) mg/dL Calcium 8.1 L (8.5-10.1) mg/dL Magnesium 2.1 (1.8-2.4) mg/dL Total Bilirubin 0.3 (0.2-1.0) mg/dL AST 60 H (15-37) U/L ALT 108 H (16-63) U/L Alkaline Phosphatase 48 (46-116) U/L C-Reactive Protein 11.7 H* (<1.0) mg/dL Total Protein 5.8 L (6.4-8.2) g/dl Albumin 2.2 L (3.4-5.0) g/dl Globulin 3.6 gm/dL Albumin/Globulin Ratio 0.6 L (1-2) Result Diagrams: 03/17/21 05:18 03/17/21 05:18 Sepsis Event Note - Evaluation Sepsis Screening Result: Sepsis Risk - Focused Exam Vital Signs: Vital Signs Temp Pulse Resp BP Pulse Ox Pulse Ox Pulse Ox 03/17/21 06:22 91 L 03/17/21 06:14 91 L 03/17/21 04:40 37.5 C 83 18 112/62 92 L 03/17/21 02:44 95 97 03/17/21 02:23 87 L 03/17/21 00:50 37.3 C 68 20 127/86 93 L 03/16/21 20:42 36.8 C 82 24 H 116/56 L 94 L - Problem List & Annotations (1) Acute respiratory failure due to COVID-19 SNOMED Code(s): 768108652 Code(s): U07.1 - COVID-19; J96.00 - ACUTE RESPIRATORY FAILURE, UNSP W HYPOXIA OR HYPERCAPNIA Status: Acute Priority: High Current Visit: Yes (2) Pulmonary emboli SNOMED Code(s): 78440760 Code(s): I26.99 - OTHER PULMONARY EMBOLISM WITHOUT ACUTE COR PULMONALE Status: Acute Priority: High Current Visit: Yes Qualifiers: Pulmonary embolism type: multiple subsegmental (without acute cor pulmonale) Qualified Code(s): I26.94 - Multiple subsegmental pulmonary emboli without acute cor pulmonale (3) Pneumonia due to COVID-19 virus SNOMED Code(s): 108173854342737934 Code(s): U07.1 - COVID-19; J12.82 - PNEUMONIA DUE TO CORONAVIRUS DISEASE 2019 Status: Acute Priority: High Current Visit: Yes (4) Hypertension SNOMED Code(s): 86002212 Code(s): I10 - ESSENTIAL (PRIMARY) HYPERTENSION Status: Chronic Priority: Medium Current Visit: Yes Qualifiers: Hypertension type: primary hypertension Qualified Code(s): I10 - Essential (primary) hypertension - Problem List Review Problem List Initiated/Reviewed/Updated: Yes - My Orders Last 24 Hours: My Active Orders 03/16/21 06:45 Cardiac Monitoring [RC] CONTINUOUS Oxygen Therapy [RC] PRN RT Aerosol Therapy [RC] ASDIRECTED Up ad [place] [RC] BID VTE/DVT Education [RC] DAILY Vital Signs [RC] Q4HR Acetaminophen [TylenoL] 650 mg PO Q4H PRN Albuterol/Ipratropium [DuoNeb 3.0-0.5 MG/3 ML] 3 ml NEB Q4H PRN Docusate Sodium [Colace] 100 mg PO BID PRN Ondansetron [Zofran ODT] 4 mg PO Q4H PRN Temazepam [Restoril] 15 mg PO BEDTIME PRN oxyCODONE 5 mg PO Q4H PRN 03/16/21 09:00 Apixaban [Eliquis] 10 mg PO BID hydroCHLOROthiazide 25 mg PO DAILY lisinopriL [Prinivil] 20 mg PO DAILY 03/16/21 09:47 RT Chest Physiotherapy [RC] ASDIRECTED - Assessment Assessment:: The patient is a 55-year-old gentleman who was admitted yesterday secondary to acute respiratory failure. The patient's oxygen will continue and continue to be tapered to keep his saturations around 92%. Thus far he has remained on high flow oxygen. The patient will continue the remdesivir 100 mg IV daily for the next 3 days. He is also on dexamethasone. Nebulized breathing treatments will continue. He is to have his diet as tolerated. Because of the pulmonary emboli the patient is currently anticoagulated on Eliquis. He has been encouraged to ambulate in the room. The patient's vital signs will be monitored and if necessary his antihypertensives will be adjusted. - Plan Plan:: The patient is a 55-year-old gentleman who had been admitted to acute hospitalization due to COVID-19 pneumonia and bilateral pulmonary emboli. The patient has been started on loading dose of Eliquis at 10 mg p.o. twice daily. The patient will have oxygen to keep his saturations at and around 92%. Patient had 1 200 mg dose of remdesivir in the emergency department and he will have ordered 4 doses of 100 mg IV remdesivir. Patient also has been placed on 6 mg p.o. daily of dexamethasone. The patient has been restarted on his antihypertensive medications and his vital signs will be monitored and his medications adjusted appropriately. The patient has been encouraged to ambulate. He will have regular diet as tolerated. Repeat laboratory studies have been ordered for the morning. The patient should be appropriate for discharge after completion of the remdesivir.
[2021-03-17] MEDS: Apixaban 5 MG Tab PO SCH ×2 (08:47→20:13)
[2021-03-17] MEDS: Lisinopril 20 MG Tab PO SCH (08:47)
[2021-03-17] MEDS: Hydrochlorothiazide 25 MG Tab PO SCH (08:48)
[2021-03-17] MEDS: Dexamethasone 4 MG/ML 5 ML MDV IV SCH (16:43)
[2021-03-17] MEDS: REMDESIVIR 100 MG in Sodium Chloride 0.9% 250 ML IV SCH (16:43)
--- NOTE | 2021-03-18 08:18 | PCM.PN ---
<Cm Feliz - Last Filed: 03/18/21 13:24> - General Info Date of Service: 03/18/21 Admission Dx/Problem (Free Text): Admission Diagnosis/Problem Admission Diagnosis/Problem acute respiratory failure associated with COVID-19 pneumonia and pulmonary emboli. Functional Status: Reports: Pain Controlled, Tolerating Diet, Ambulating, Urinating, Incentive Spirometry, Other (Acapella ). Denies: New Symptoms - Review of Systems General: Reports: No Symptoms. Denies: Fever, Weakness, Fatigue, Malaise HEENT: Reports: No Symptoms. Denies: Headaches, Sore Throat Pulmonary: Reports: Shortness of Breath, Cough. Denies: Pleuritic Chest Pain, Sputum Cardiovascular: Reports: No Symptoms, Dyspnea on Exertion. Denies: Chest Pain, Palpitations, Edema Gastrointestinal: Reports: No Symptoms. Denies: Abdominal Pain, Constipation, Diarrhea, Nausea, Vomiting Genitourinary: Reports: No Symptoms. Denies: Pain Musculoskeletal: Reports: No Symptoms Skin: Reports: No Symptoms. Denies: Cyanosis Neurological: Reports: No Symptoms. Denies: Confusion, Dizziness, Headache, Numbness, Pre-Existing Deficit, Syncope, Tingling, Difficulty Walking, Weakness, Gait Disturbance Psychiatric: Reports: No Symptoms - Patient Data Vitals - Most Recent: Last Vital Signs Temp 98.4 F 03/18/21 04:18 Pulse 74 03/18/21 04:18 Resp 16 03/18/21 04:18 BP 109/72 03/18/21 04:18 Pulse Ox 95 03/18/21 04:18 Weight - Most Recent: 87.634 kg I&O - Last 24 Hours: Intake & Output 03/17/21 03/18/21 03/18/21 22:59 06:59 14:59 Intake Total 2140 700 Output Total 1350 1250 Balance 790 -550 Lab Results Last 24 Hours: Laboratory Results - last 24 hr 03/18/21 03/18/21 03/18/21 Range/Units 06:00 06:00 06:00 WBC 15.64 H (4.23-9.07) K/mm3 RBC 4.32 L (4.63-6.08) M/mm3 Hgb 12.9 L (13.7-17.5) gm/dl Hct 37.6 L (40.1-51.0) % MCV 87.0 (79.0-92.2) fl MCH 29.9 (25.7-32.2) pg MCHC 34.3 (32.2-35.5) g/dl RDW Std Deviation 42.0 (35.1-43.9) fL Plt Count 297 (163-337) K/mm3 MPV 9.6 (9.4-12.3) fl Neut % (Auto) 80.7 H (34.0-67.9) % Lymph % (Auto) 5.1 L (21.8-53.1) % [place] % (Auto) 10.0 (5.3-12.2) % Eos % (Auto) 0 L (0.8-7.0) Baso % (Auto) 0.2 (0.1-1.2) % Neut # (Auto) 12.62 H (1.78-5.38) K/mm3 Lymph # (Auto) 0.80 L (1.32-3.57) K/mm3 [place] # (Auto) 1.57 H (0.30-0.82) K/mm3 Eos # (Auto) 0.00 L (0.04-0.54) K/mm3 Baso # (Auto) 0.03 (0.01-0.08) K/mm3 Manual Slide Review Abnormal smear D-Dimer, Quantitative > 35.20 H (0.19-0.50) mg/L Sodium 136 (136-145) mEq/L Potassium 4.3 (3.5-5.1) mEq/L Chloride 101 (98-107) mEq/L Carbon Dioxide 28 (21-32) mEq/L Anion Gap 11.3 (5-15) BUN 26 H (7-18) mg/dL Creatinine 1.0 (0.7-1.3) mg/dL Est Cr Clr Drug Dosing 84.15 mL/min Estimated GFR (MDRD) > 60 (>60) mL/min BUN/Creatinine Ratio 26.0 H (14-18) Glucose 136 H (70-99) mg/dL Calcium 8.2 L (8.5-10.1) mg/dL Magnesium 1.9 (1.8-2.4) mg/dL Total Bilirubin 0.3 (0.2-1.0) mg/dL AST 63 H (15-37) U/L ALT 134 H (16-63) U/L Alkaline Phosphatase 50 (46-116) U/L C-Reactive Protein 5.8 H* (<1.0) mg/dL Total Protein 5.8 L (6.4-8.2) g/dl Albumin 2.3 L (3.4-5.0) g/dl Globulin 3.5 gm/dL Albumin/Globulin Ratio 0.7 L (1-2) Med Orders - Current: Current Medications Acetaminophen (Acetaminophen 325 Mg Tab) 650 mg PO Q4H PRN PRN Reason: Pain (Mild 1-3)/fever Albuterol/Ipratropium (Albuterol/Ipratropium 3.0-0.5 Mg/3 Ml Neb Soln) 3 ml NEB Q4H PRN PRN Reason: Shortness Of Breath/wheezing Last Admin: 03/17/21 18:05 Dose: 3 ml Documented by: Apixaban (Apixaban 5 Mg Tab) 10 mg PO BID [facility] Last Admin: 03/17/21 20:13 Dose: 10 mg Documented by: Dexamethasone (Dexamethasone 4 Mg/Ml 5 Ml Mdv) 12 mg IV Q24H [facility] Last Admin: 03/17/21 16:43 Dose: 12 mg Documented by: Docusate Sodium (Docusate Sodium 100 Mg Cap) 100 mg PO BID PRN PRN Reason: Constipation Hydrochlorothiazide (Hydrochlorothiazide 25 Mg Tab) 25 mg PO DAILY [facility] Last Admin: 03/17/21 08:48 Dose: 25 mg Documented by: Remdesivir 100 mg/ Sodium (Chloride) 250 mls @ 250 mls/hr IV Q24H [facility] Stop: 03/19/21 17:01 Last Admin: 03/17/21 16:43 Dose: 250 mls/hr Documented by: Lisinopril (Lisinopril 20 Mg Tab) 20 mg PO DAILY [facility] Last Admin: 03/17/21 08:47 Dose: 20 mg Documented by: Ondansetron HCl (Ondansetron 4 Mg Tab.Dis) 4 mg PO Q4H PRN PRN Reason: nausea, able to take PO Oxycodone HCl (Oxycodone 5 Mg Tab) 5 mg PO Q4H PRN PRN Reason: Pain (moderate 4-6) Sodium Chloride (Sodium Chloride 0.9% 10 Ml Syringe) 10 ml FLUSH ASDIRECTED PRN PRN Reason: Keep Vein Open Last Admin: 03/15/21 15:53 Dose: 10 ml Documented by: Temazepam (Temazepam 15 Mg Cap) 15 mg PO BEDTIME PRN PRN Reason: Sleep Discontinued Medications Acetaminophen (Acetaminophen 325 Mg Tab) 975 mg PO Q4H PRN PRN Reason: Pain/Fever Apixaban (Apixaban 5 Mg Tab) 10 mg PO ONETIME ONE Stop: 03/15/21 17:26 Last Admin: 03/15/21 17:40 Dose: 10 mg Documented by: Apixaban (Apixaban 5 Mg Tab) 5 mg PO DAILY [facility] Dexamethasone (Dexamethasone 4 Mg/Ml Sdv) 6 mg IVPUSH ONETIME ONE Stop: 03/15/21 16:43 Last Admin: 03/15/21 17:26 Dose: 6 mg Documented by: Sodium Chloride (Normal Saline) 1,000 mls @ 1,000 mls/hr IV .BOLUS KAR Last Admin: 03/15/21 15:53 Dose: 1,000 mls/hr Documented by: Remdesivir 200 mg/ Sodium (Chloride) 250 mls @ 250 mls/hr IV ONETIME ONE Stop: 03/15/21 16:43 Last Admin: 03/15/21 17:26 Dose: 250 mls/hr Documented by: Morphine Sulfate (Morphine 2 Mg/Ml Syringe) 2 mg IVPUSH Q2H PRN PRN Reason: Pain (severe 7-10) Stop: 03/17/21 06:45 Ondansetron HCl (Ondansetron 4 Mg/2 Ml Sdv) 4 mg IVPUSH ONETIME ONE Stop: 03/15/21 15:05 Last Admin: 03/15/21 15:53 Dose: 4 mg Documented by: - Exam Quality Assessment: Supplemental Oxygen (12L), DVT Prophylaxis. No: Urine Catheter General: Alert, Oriented, Cooperative, No Acute Distress HEENT: Pupils Equal, Pupils Reactive, Mucous Membr. Moist/[place], Other (Reports bilateral nasal congestion) Neck: Supple, Trachea Midline Lungs: Decreased Breath Sounds, Crackles, Rhonchi. No: Normal Respiratory Effort (Tachypnea) Cardiovascular: Regular Rate, Regular Rhythm GI/Abdominal Exam: Normal Bowel Sounds, Soft, Non-Tender, No Distention (Male) Exam: Deferred Back Exam: Normal Inspection, Full Range of Motion Extremities: Normal Inspection, Normal Range of Motion, Non-Tender, No Pedal Edema, Normal Capillary Refill Skin: Warm, Dry, Intact Neurological: No New Focal Deficit Psy/Mental Status: Alert, Normal Affect, Normal Mood - Patient Data Lab Results Last 24 hrs: Laboratory Results - last 24 hr 03/18/21 03/18/21 03/18/21 Range/Units 06:00 06:00 06:00 WBC 15.64 H (4.23-9.07) K/mm3 RBC 4.32 L (4.63-6.08) M/mm3 Hgb 12.9 L (13.7-17.5) gm/dl Hct 37.6 L (40.1-51.0) % MCV 87.0 (79.0-92.2) fl MCH 29.9 (25.7-32.2) pg MCHC 34.3 (32.2-35.5) g/dl RDW Std Deviation 42.0 (35.1-43.9) fL Plt Count 297 (163-337) K/mm3 MPV 9.6 (9.4-12.3) fl Neut % (Auto) 80.7 H (34.0-67.9) % Lymph % (Auto) 5.1 L (21.8-53.1) % [place] % (Auto) 10.0 (5.3-12.2) % Eos % (Auto) 0 L (0.8-7.0) Baso % (Auto) 0.2 (0.1-1.2) % Neut # (Auto) 12.62 H (1.78-5.38) K/mm3 Lymph # (Auto) 0.80 L (1.32-3.57) K/mm3 [place] # (Auto) 1.57 H (0.30-0.82) K/mm3 Eos # (Auto) 0.00 L (0.04-0.54) K/mm3 Baso # (Auto) 0.03 (0.01-0.08) K/mm3 Manual Slide Review Abnormal smear D-Dimer, Quantitative > 35.20 H (0.19-0.50) mg/L Sodium 136 (136-145) mEq/L Potassium 4.3 (3.5-5.1) mEq/L Chloride 101 (98-107) mEq/L Carbon Dioxide 28 (21-32) mEq/L Anion Gap 11.3 (5-15) BUN 26 H (7-18) mg/dL Creatinine 1.0 (0.7-1.3) mg/dL Est Cr Clr Drug Dosing 84.15 mL/min Estimated GFR (MDRD) > 60 (>60) mL/min BUN/Creatinine Ratio 26.0 H (14-18) Glucose 136 H (70-99) mg/dL Calcium 8.2 L (8.5-10.1) mg/dL Magnesium 1.9 (1.8-2.4) mg/dL Total Bilirubin 0.3 (0.2-1.0) mg/dL AST 63 H (15-37) U/L ALT 134 H (16-63) U/L Alkaline Phosphatase 50 (46-116) U/L C-Reactive Protein 5.8 H* (<1.0) mg/dL Total Protein 5.8 L (6.4-8.2) g/dl Albumin 2.3 L (3.4-5.0) g/dl Globulin 3.5 gm/dL Albumin/Globulin Ratio 0.7 L (1-2) Result Diagrams: 03/18/21 06:00 03/18/21 06:00 Sepsis Event Note - Evaluation Sepsis Screening Result: No Definite Risk - Focused Exam Vital Signs: Vital Signs Temp Pulse Resp BP Pulse Ox 03/18/21 04:18 98.4 F 74 16 109/72 95 03/17/21 23:08 98.2 F 84 16 115/68 90 L - Problem List & Annotations (1) Acute respiratory failure due to COVID-19 SNOMED Code(s): 305204409 Code(s): U07.1 - COVID-19; J96.00 - ACUTE RESPIRATORY FAILURE, UNSP W HYPOXIA OR HYPERCAPNIA Status: Acute Priority: High Current Visit: Yes (2) COVID-19 SNOMED Code(s): 613216776 Code(s): U07.1 - COVID-19 Status: Acute Current Visit: Yes (3) Hypoxia SNOMED Code(s): 403470072 Code(s): R09.02 - HYPOXEMIA Status: Acute Current Visit: Yes (4) Left ureter dilated SNOMED Code(s): 59339730 Code(s): N28.82 - [facility]TER Status: Acute Current Visit: Yes (5) Pneumonia due to COVID-19 virus SNOMED Code(s): 574778858197289498 Code(s): U07.1 - COVID-19; J12.82 - PNEUMONIA DUE TO CORONAVIRUS DISEASE 2019 Status: Acute Priority: High Current Visit: Yes (6) Pulmonary emboli SNOMED Code(s): 72570307 Code(s): I26.99 - OTHER PULMONARY EMBOLISM WITHOUT ACUTE COR PULMONALE Status: Acute Priority: High Current Visit: Yes Qualifiers: Pulmonary embolism type: multiple subsegmental (without acute cor pulmonale) Qualified Code(s): I26.94 - Multiple subsegmental pulmonary emboli without acute cor pulmonale (7) Hypertension SNOMED Code(s): 71107069 Code(s): I10 - ESSENTIAL (PRIMARY) HYPERTENSION Status: Chronic Priority: Medium Current Visit: Yes Qualifiers: Hypertension type: primary hypertension Qualified Code(s): I10 - Essential (primary) hypertension - Problem List Review Problem List Initiated/Reviewed/Updated: Yes - Plan Plan:: 03/16/2021 The patient is a 55-year-old gentleman who had been admitted to [facility] due to COVID-19 pneumonia and bilateral pulmonary emboli. The patient has been started on loading dose of Eliquis at 10 mg p.o. twice daily. The patient will have oxygen to keep his saturations at and around 92%. Patient had 1 200 mg dose of remdesivir in the emergency department and he will have ordered 4 doses of 100 mg IV remdesivir. Patient also has been placed on 6 mg p.o. daily of dexamethasone. The patient has been restarted on his antihypertensive medications and his vital signs will be monitored and his medications adjusted appropriately. The patient has been encouraged to ambulate. He will have regular diet as tolerated. Repeat laboratory studies have been ordered for the morning. The patient should be appropriate for discharge after completion of the remdesivir. 03/17/2021 The patient is a 55-year-old gentleman who was admitted yesterday secondary to acute respiratory failure. The patient's oxygen will continue and continue to be tapered to keep his saturations around 92%. Thus far he has remained on high flow oxygen. The patient will continue the remdesivir 100 mg IV daily for the next 3 days. He is also on dexamethasone. Nebulized breathing treatments will continue. He is to have his diet as tolerated. Because of the pulmonary emboli the patient is currently anticoagulated on Eliquis. He has been encouraged to ambulate in the room. The patient's vital signs will be monitored and if necessary his antihypertensives will be adjusted. 03/18/2021 55-year-old male admitted due to acute respiratory failure secondary to hypoxia and pulmonary emboli. He continues on remdesivir and dexamethasone. He was also placed on Eliquis 10 mg twice daily which should continue for 7 days and then transition to 5 mg twice daily. He is currently utilizing oxy mask at 12 L as he reports his nose is very congested and plugged. We did order saline nasal mist. In reviewing prior laboratory findings it appears patient had toxic granulation on admission and also a leukocytosis of 13. This has been i ncreasing, which may be due to steroid with the patient may have an underlying infectious process. Because of this we will order a procalcitonin and start azithromycin and Rocephin. Labs today show WBC of 15.64. Hemoglobin is 12.9. Platelets are 297,000. Neutrophils are elevated 80.7%. D-dimer is greater than 35.2. Sodium is 136. Potassium 4.3. Chloride 101. Carbon dioxide 28. Anion gap 11.3. BUN is 26. Creatinine 1.0. GFR greater than 60. Glucose is 136. Calcium 8.2. Magnesium 1.9. AST 63, total bilirubin 0.3. ALT 134. Alkaline phosphatase 50. CRP is 5.8. Protein 5.8. Albumin 2.3. Given dilated ureter found on CT scan of the abdomen pelvis we will recommend urology follow-up. We will otherwise continue on current treatment plan. We will add zinc supplementation and check a vitamin D level. Unknown length of stay given severity of symptoms. Length of stay greater than 96 hours due to need for continued treatment. <Norman Aj - Last Filed: 03/18/21 15:52> - Patient Data Vitals - Most Recent: Last Vital Signs Temp 36.8 C 03/18/21 11:34 Pulse 86 03/18/21 11:37 Resp 20 03/18/21 11:34 BP 108/63 03/18/21 11:34 Pulse Ox 88 L 03/18/21 11:37 I&O - Last 24 Hours: Intake & Output 03/18/21 03/18/21 03/18/21 06:59 14:59 22:59 Intake Total 700 960 Output Total 1250 Balance -550 960 Lab Results Last 24 Hours: Laboratory Results - last 24 hr 03/18/21 03/18/21 03/18/21 Range/Units 06:00 06:00 06:00 WBC 15.64 H (4.23-9.07) K/mm3 RBC 4.32 L (4.63-6.08) M/mm3 Hgb 12.9 L (13.7-17.5) gm/dl Hct 37.6 L (40.1-51.0) % MCV 87.0 (79.0-92.2) fl MCH 29.9 (25.7-32.2) pg MCHC 34.3 (32.2-35.5) g/dl RDW Std Deviation 42.0 (35.1-43.9) fL Plt Count 297 (163-337) K/mm3 MPV 9.6 (9.4-12.3) fl Neut % (Auto) 80.7 H (34.0-67.9) % Lymph % (Auto) 5.1 L (21.8-53.1) % [place] % (Auto) 10.0 (5.3-12.2) % Eos % (Auto) 0 L (0.8-7.0) Baso % (Auto) 0.2 (0.1-1.2) % Neut # (Auto) 12.62 H (1.78-5.38) K/mm3 Lymph # (Auto) 0.80 L (1.32-3.57) K/mm3 [place] # (Auto) 1.57 H (0.30-0.82) K/mm3 Eos # (Auto) 0.00 L (0.04-0.54) K/mm3 Baso # (Auto) 0.03 (0.01-0.08) K/mm3 Manual Slide Review Abnormal smear D-Dimer, Quantitative > 35.20 H (0.19-0.50) mg/L Sodium 136 (136-145) mEq/L Potassium 4.3 (3.5-5.1) mEq/L Chloride 101 (98-107) mEq/L Carbon Dioxide 28 (21-32) mEq/L Anion Gap 11.3 (5-15) BUN 26 H (7-18) mg/dL Creatinine 1.0 (0.7-1.3) mg/dL Est Cr Clr Drug Dosing 84.15 mL/min Estimated GFR (MDRD) > 60 (>60) mL/min BUN/Creatinine Ratio 26.0 H (14-18) Glucose 136 H (70-99) mg/dL Calcium 8.2 L (8.5-10.1) mg/dL Magnesium 1.9 (1.8-2.4) mg/dL Total Bilirubin 0.3 (0.2-1.0) mg/dL AST 63 H (15-37) U/L ALT 134 H (16-63) U/L Alkaline Phosphatase 50 (46-116) U/L C-Reactive Protein 5.8 H* (<1.0) mg/dL Total Protein 5.8 L (6.4-8.2) g/dl Albumin 2.3 L (3.4-5.0) g/dl Globulin 3.5 gm/dL Albumin/Globulin Ratio 0.7 L (1-2) Med Orders - Current: Current Medications Acetaminophen (Acetaminophen 325 Mg Tab) 650 mg PO Q4H PRN PRN Reason: Pain (Mild 1-3)/fever Albuterol (Albuterol 6.7 Gm Inhaler) 0 gm INH Q2H PRN PRN Reason: SOB/wheezing Albuterol/Ipratropium (Albuterol/Ipratropium 3.0-0.5 Mg/3 Ml Neb Soln) 3 ml NEB Q4H PRN PRN Reason: Shortness Of Breath/wheezing Last Admin: 03/18/21 09:59 Dose: 3 ml Documented by: Apixaban (Apixaban 5 Mg Tab) 10 mg PO BID [facility] Last Admin: 03/18/21 09:55 Dose: 10 mg Documented by: Dexamethasone (Dexamethasone 4 Mg/Ml 5 Ml Mdv) 12 mg IV Q24H [facility] Last Admin: 03/17/21 16:43 Dose: 12 mg Documented by: Docusate Sodium (Docusate Sodium 100 Mg Cap) 100 mg PO BID PRN PRN Reason: Constipation Hydrochlorothiazide (Hydrochlorothiazide 25 Mg Tab) 25 mg PO DAILY [facility] Last Admin: 03/18/21 09:55 Dose: 25 mg Documented by: Remdesivir 100 mg/ Sodium (Chloride) 250 mls @ 250 mls/hr IV Q24H [facility] Stop: 03/19/21 17:01 Last Admin: 03/17/21 16:43 Dose: 250 mls/hr Documented by: Azithromycin 500 mg/ Sodium (Chloride) 250 mls @ 250 mls/hr IV Q24H [facility] Stop: 03/20/21 13:29 Last Admin: 03/18/21 13:46 Dose: 250 mls/hr Documented by: Ceftriaxone Sodium 2 gm/ (Sodium Chloride) 100 mls @ 200 mls/hr IV Q24H [facility] Stop: 03/24/21 13:59 Last Admin: 03/18/21 14:57 Dose: 200 mls/hr Documented by: Lisinopril (Lisinopril 20 Mg Tab) 20 mg PO DAILY [facility] Last Admin: 03/18/21 09:55 Dose: 20 mg Documented by: Ondansetron HCl (Ondansetron 4 Mg Tab.Dis) 4 mg PO Q4H PRN PRN Reason: nausea, able to take PO Oxycodone HCl (Oxycodone 5 Mg Tab) 5 mg PO Q4H PRN PRN Reason: Pain (moderate 4-6) Sodium Chloride (Sodium Chloride 0.9% 10 Ml Syringe) 10 ml FLUSH ASDIRECTED PRN PRN Reason: Keep Vein Open Last Admin: 03/15/21 15:53 Dose: 10 ml Documented by: Sodium Chloride (Sodium Chloride 0.65% Nasal [place] 45 Ml Bottle) 1 ml JOYCE Q1H PRN PRN Reason: nasal congestion Temazepam (Temazepam 15 Mg Cap) 15 mg PO BEDTIME PRN PRN Reason: Sleep Zinc Sulfate (Zinc Sulfate 220 Mg Cap) 220 mg PO DAILY [facility] Last Admin: 03/18/21 11:35 Dose: 220 mg Documented by: Discontinued Medications Acetaminophen (Acetaminophen 325 Mg Tab) 975 mg PO Q4H PRN PRN Reason: Pain/Fever Apixaban (Apixaban 5 Mg Tab) 10 mg PO ONETIME ONE Stop: 03/15/21 17:26 Last Admin: 03/15/21 17:40 Dose: 10 mg Documented by: Apixaban (Apixaban 5 Mg Tab) 5 mg PO DAILY [facility] Dexamethasone (Dexamethasone 4 Mg/Ml Sdv) 6 mg IVPUSH ONETIME ONE Stop: 03/15/21 16:43 Last Admin: 03/15/21 17:26 Dose: 6 mg Documented by: Sodium Chloride (Normal Saline) 1,000 mls @ 1,000 mls/hr IV .BOLUS KAR Last Admin: 03/15/21 15:53 Dose: 1,000 mls/hr Documented by: Remdesivir 200 mg/ Sodium (Chloride) 250 mls @ 250 mls/hr IV ONETIME ONE Stop: 03/15/21 16:43 Last Admin: 03/15/21 17:26 Dose: 250 mls/hr Documented by: Morphine Sulfate (Morphine 2 Mg/Ml Syringe) 2 mg IVPUSH Q2H PRN PRN Reason: Pain (severe 7-10) Stop: 03/17/21 06:45 Ondansetron HCl (Ondansetron 4 Mg/2 Ml Sdv) 4 mg IVPUSH ONETIME ONE Stop: 03/15/21 15:05 Last Admin: 03/15/21 15:53 Dose: 4 mg Documented by: - Patient Data Lab Results Last 24 hrs: Laboratory Results - last 24 hr 03/18/21 03/18/21 03/18/21 Range/Units 06:00 06:00 06:00 WBC 15.64 H (4.23-9.07) K/mm3 RBC 4.32 L (4.63-6.08) M/mm3 Hgb 12.9 L (13.7-17.5) gm/dl Hct 37.6 L (40.1-51.0) % MCV 87.0 (79.0-92.2) fl MCH 29.9 (25.7-32.2) pg MCHC 34.3 (32.2-35.5) g/dl RDW Std Deviation 42.0 (35.1-43.9) fL Plt Count 297 (163-337) K/mm3 MPV 9.6 (9.4-12.3) fl Neut % (Auto) 80.7 H (34.0-67.9) % Lymph % (Auto) 5.1 L (21.8-53.1) % [place] % (Auto) 10.0 (5.3-12.2) % Eos % (Auto) 0 L (0.8-7.0) Baso % (Auto) 0.2 (0.1-1.2) % Neut # (Auto) 12.62 H (1.78-5.38) K/mm3 Lymph # (Auto) 0.80 L (1.32-3.57) K/mm3 [place] # (Auto) 1.57 H (0.30-0.82) K/mm3 Eos # (Auto) 0.00 L (0.04-0.54) K/mm3 Baso # (Auto) 0.03 (0.01-0.08) K/mm3 Manual Slide Review Abnormal smear D-Dimer, Quantitative > 35.20 H (0.19-0.50) mg/L Sodium 136 (136-145) mEq/L Potassium 4.3 (3.5-5.1) mEq/L Chloride 101 (98-107) mEq/L Carbon Dioxide 28 (21-32) mEq/L Anion Gap 11.3 (5-15) BUN 26 H (7-18) mg/dL Creatinine 1.0 (0.7-1.3) mg/dL Est Cr Clr Drug Dosing 84.15 mL/min Estimated GFR (MDRD) > 60 (>60) mL/min BUN/Creatinine Ratio 26.0 H (14-18) Glucose 136 H (70-99) mg/dL Calcium 8.2 L (8.5-10.1) mg/dL Magnesium 1.9 (1.8-2.4) mg/dL Total Bilirubin 0.3 (0.2-1.0) mg/dL AST 63 H (15-37) U/L ALT 134 H (16-63) U/L Alkaline Phosphatase 50 (46-116) U/L C-Reactive Protein 5.8 H* (<1.0) mg/dL Total Protein 5.8 L (6.4-8.2) g/dl Albumin 2.3 L (3.4-5.0) g/dl Globulin 3.5 gm/dL Albumin/Globulin Ratio 0.7 L (1-2) Result Diagrams: 03/18/21 06:00 03/18/21 06:00 Sepsis Event Note - Focused Exam Vital Signs: Vital Signs Temp Pulse Resp BP Pulse Ox Pulse Ox 03/18/21 11:37 86 88 L 03/18/21 11:34 36.8 C 87 20 108/63 87 L 03/18/21 10:27 91 90 L 03/18/21 10:26 88 90 L 03/18/21 09:59 88 L 03/18/21 09:55 137/81 03/18/21 08:20 36.7 C 88 24 H 137/81 86 L 03/18/21 04:18 36.9 C 74 16 109/72 95 - Problem List & Annotations (1) Acute respiratory failure due to COVID-19 SNOMED Code(s): 147833330 Code(s): U07.1 - COVID-19; J96.00 - ACUTE RESPIRATORY FAILURE, UNSP W HYPOXIA OR HYPERCAPNIA Status: Acute Priority: High Current Visit: Yes (2) Pulmonary emboli SNOMED Code(s): 66363524 Code(s): I26.99 - OTHER PULMONARY EMBOLISM WITHOUT ACUTE COR PULMONALE Status: Acute Priority: High Current Visit: Yes Qualifiers: Pulmonary embolism type: multiple subsegmental (without acute cor pulmonale) Qualified Code(s): I26.94 - Multiple subsegmental pulmonary emboli without acute cor pulmonale (3) Pneumonia due to COVID-19 virus SNOMED Code(s): 627075167427773409 Code(s): U07.1 - COVID-19; J12.82 - PNEUMONIA DUE TO CORONAVIRUS DISEASE 2019 Status: Acute Priority: High Current Visit: Yes (4) Hypertension SNOMED Code(s): 45203349 Code(s): I10 - ESSENTIAL (PRIMARY) HYPERTENSION Status: Chronic Priority: Medium Current Visit: Yes Qualifiers: Hypertension type: primary hypertension Qualified Code(s): I10 - Essential (primary) hypertension - My Orders Last 24 Hours: My Active Orders 03/18/21 11:28 Consult to Mission Systems Engineer [CONS] Routine - Free Text/Narrative Note: I have seen and examined the patient independently of TREV Feliz. I have discussed the case with him. I have also reviewed and agree with the plan of care as outlined by him. Please see orders.
[2021-03-18] MEDS: Hydrochlorothiazide 25 MG Tab PO SCH (09:55)
[2021-03-18] MEDS: Lisinopril 20 MG Tab PO SCH (09:55)
[2021-03-18] MEDS: Apixaban 5 MG Tab PO SCH ×2 (09:55→20:21)
[2021-03-18] MEDS: Albuterol/Ipratropium 3.0-0.5 MG/3 ML Neb Soln NEB PRN ×3 (09:59→20:53)
[2021-03-18] MEDS ORDERED: Albuterol 6.7 GM Inhaler INH PRN (10:38)
[2021-03-18] MEDS: Zinc Sulfate 220 MG Cap PO SCH (11:35)
[2021-03-18] MEDS: Azithromycin 500 MG in Sodium Chloride 0.9% 250 ML IV SCH (13:46)
[2021-03-18] MEDS: cefTRIAXone 2 GM in Sodium Chloride 0.9% 100 ML IV SCH (14:57)
[2021-03-18] MEDS: Dexamethasone 4 MG/ML 5 ML MDV IV SCH (17:34)
[2021-03-18] MEDS: REMDESIVIR 100 MG in Sodium Chloride 0.9% 250 ML IV SCH (17:35)
[2021-03-19] MEDS: Sodium Chloride 0.65% Nasal Spray 45 ML Bottle NAS PRN ×7 (00:15→18:17)
--- NOTE | 2021-03-19 07:28 | PCM.PN ---
<Cm Feliz - Last Filed: 03/19/21 09:55> - General Info Date of Service: 03/19/21 Admission Dx/Problem (Free Text): Admission Diagnosis/Problem Admission Diagnosis/Problem acute respiratory failure associated with COVID-19 pneumonia and pulmonary emboli. Functional Status: Reports: Pain Controlled, Tolerating Diet, Ambulating, Urinating, Incentive Spirometry. Denies: New Symptoms - Review of Systems General: Reports: No Symptoms. Denies: Fever, Weakness, Fatigue, Malaise, Chills HEENT: Reports: Sinus Congestion, Sore Throat (2/2 coughing ) Pulmonary: Reports: Shortness of Breath, Cough, Sputum. Denies: Pleuritic Chest Pain, Wheezing Cardiovascular: Reports: No Symptoms, Dyspnea on Exertion. Denies: Chest Pain, Palpitations, Edema, Lightheadedness Gastrointestinal: Reports: No Symptoms. Denies: Abdominal Pain, Constipation, Diarrhea, Nausea, Vomiting Genitourinary: Reports: No Symptoms. Denies: Pain Musculoskeletal: Reports: No Symptoms Skin: Reports: No Symptoms. Denies: Cyanosis Neurological: Reports: No Symptoms. Denies: Confusion, Dizziness, Headache, Numbness, Pre-Existing Deficit, Syncope, Tingling, Difficulty Walking, Weakness, Gait Disturbance Psychiatric: Reports: No Symptoms - Patient Data Vitals - Most Recent: Last Vital Signs Temp 98.2 F 03/19/21 04:58 Pulse 67 03/19/21 04:58 Resp 20 03/19/21 04:58 BP 100/73 03/19/21 04:58 Pulse Ox 92 L 03/19/21 04:58 Weight - Most Recent: 87.634 kg I&O - Last 24 Hours: Intake & Output 03/18/21 03/19/21 03/19/21 22:59 06:59 14:59 Intake Total 1800 1100 Output Total 2024 1400 Balance -225 -300 Lab Results Last 24 Hours: Laboratory Results - last 24 hr 03/18/21 03/18/21 03/19/21 Range/Units 06:00 06:00 05:35 WBC 12.95 H (4.23-9.07) K/mm3 RBC 4.54 L (4.63-6.08) M/mm3 Hgb 13.4 L (13.7-17.5) gm/dl Hct 39.4 L (40.1-51.0) % MCV 86.8 (79.0-92.2) fl MCH 29.5 (25.7-32.2) pg MCHC 34.0 (32.2-35.5) g/dl RDW Std Deviation 42.8 (35.1-43.9) fL Plt Count 292 (163-337) K/mm3 MPV 10.0 (9.4-12.3) fl Neut % (Auto) 78.7 H (34.0-67.9) % Lymph % (Auto) 6.7 L (21.8-53.1) % Gulf % (Auto) 10.1 (5.3-12.2) % Eos % (Auto) 0 L (0.8-7.0) Baso % (Auto) 0.2 (0.1-1.2) % Neut # (Auto) 10.19 H (1.78-5.38) K/mm3 Lymph # (Auto) 0.87 L (1.32-3.57) K/mm3 Gulf # (Auto) 1.31 H (0.30-0.82) K/mm3 Eos # (Auto) 0.00 L (0.04-0.54) K/mm3 Baso # (Auto) 0.02 (0.01-0.08) K/mm3 Manual Slide Review Abnormal smear Normal smear Sodium (136-145) mEq/L Potassium (3.5-5.1) mEq/L Chloride (98-107) mEq/L Carbon Dioxide (21-32) mEq/L Anion Gap (5-15) BUN (7-18) mg/dL Creatinine (0.7-1.3) mg/dL Est Cr Clr Drug Dosing mL/min Estimated GFR (MDRD) (>60) mL/min BUN/Creatinine Ratio (14-18) Glucose (70-99) mg/dL Calcium (8.5-10.1) mg/dL Phosphorus (2.6-4.7) mg/dL Magnesium (1.8-2.4) mg/dL Total Bilirubin (0.2-1.0) mg/dL AST (15-37) U/L ALT (16-63) U/L Alkaline Phosphatase (46-116) U/L C-Reactive Protein (<1.0) mg/dL Total Protein (6.4-8.2) g/dl Albumin (3.4-5.0) g/dl Globulin gm/dL Albumin/Globulin Ratio (1-2) Procalcitonin 0.08 ng/mL 03/19/21 Range/Units 05:35 WBC (4.23-9.07) K/mm3 RBC (4.63-6.08) M/mm3 Hgb (13.7-17.5) gm/dl Hct (40.1-51.0) % MCV (79.0-92.2) fl MCH (25.7-32.2) pg MCHC (32.2-35.5) g/dl RDW Std Deviation (35.1-43.9) fL Plt Count (163-337) K/mm3 MPV (9.4-12.3) fl Neut % (Auto) (34.0-67.9) % Lymph % (Auto) (21.8-53.1) % Gulf % (Auto) (5.3-12.2) % Eos % (Auto) (0.8-7.0) Baso % (Auto) (0.1-1.2) % Neut # (Auto) (1.78-5.38) K/mm3 Lymph # (Auto) (1.32-3.57) K/mm3 Gulf # (Auto) (0.30-0.82) K/mm3 Eos # (Auto) (0.04-0.54) K/mm3 Baso # (Auto) (0.01-0.08) K/mm3 Manual Slide Review Sodium 135 L (136-145) mEq/L Potassium 4.7 (3.5-5.1) mEq/L Chloride 101 (98-107) mEq/L Carbon Dioxide 24 (21-32) mEq/L Anion Gap 14.7 (5-15) BUN 24 H (7-18) mg/dL Creatinine 0.9 (0.7-1.3) mg/dL Est Cr Clr Drug Dosing 93.50 mL/min Estimated GFR (MDRD) > 60 (>60) mL/min BUN/Creatinine Ratio 26.7 H (14-18) Glucose 135 H (70-99) mg/dL Calcium 8.1 L (8.5-10.1) mg/dL Phosphorus 3.9 (2.6-4.7) mg/dL Magnesium 2.0 (1.8-2.4) mg/dL Total Bilirubin 0.4 (0.2-1.0) mg/dL AST 55 H (15-37) U/L ALT 149 H (16-63) U/L Alkaline Phosphatase 47 (46-116) U/L C-Reactive Protein 3.0 H* (<1.0) mg/dL Total Protein 6.1 L (6.4-8.2) g/dl Albumin 2.4 L (3.4-5.0) g/dl Globulin 3.7 gm/dL Albumin/Globulin Ratio 0.7 L (1-2) Procalcitonin ng/mL Med Orders - Current: Current Medications Acetaminophen (Acetaminophen 325 Mg Tab) 650 mg PO Q4H PRN PRN Reason: Pain (Mild 1-3)/fever Albuterol (Albuterol 6.7 Gm Inhaler) 0 gm INH Q2H PRN PRN Reason: SOB/wheezing Albuterol/Ipratropium (Albuterol/Ipratropium 3.0-0.5 Mg/3 Ml Neb Soln) 3 ml NEB Q4H PRN PRN Reason: Shortness Of Breath/wheezing Last Admin: 03/18/21 20:53 Dose: 3 ml Documented by: Apixaban (Apixaban 5 Mg Tab) 10 mg PO BID [facility] Last Admin: 03/18/21 20:21 Dose: 10 mg Documented by: Dexamethasone (Dexamethasone 4 Mg/Ml 5 Ml Mdv) 12 mg IV Q24H [facility] Last Admin: 03/18/21 17:34 Dose: 12 mg Documented by: Docusate Sodium (Docusate Sodium 100 Mg Cap) 100 mg PO BID PRN PRN Reason: Constipation Hydrochlorothiazide (Hydrochlorothiazide 25 Mg Tab) 25 mg PO DAILY [facility] Last Admin: 03/18/21 09:55 Dose: 25 mg Documented by: Remdesivir 100 mg/ Sodium (Chloride) 250 mls @ 250 mls/hr IV Q24H [facility] Stop: 03/19/21 17:01 Last Admin: 03/18/21 17:35 Dose: 250 mls/hr Documented by: Azithromycin 500 mg/ Sodium (Chloride) 250 mls @ 250 mls/hr IV Q24H [facility] Stop: 03/20/21 13:29 Last Admin: 03/18/21 13:46 Dose: 250 mls/hr Documented by: Ceftriaxone Sodium 2 gm/ (Sodium Chloride) 100 mls @ 200 mls/hr IV Q24H [facility] Stop: 03/24/21 13:59 Last Admin: 03/18/21 14:57 Dose: 200 mls/hr Documented by: Lisinopril (Lisinopril 20 Mg Tab) 20 mg PO DAILY [facility] Last Admin: 03/18/21 09:55 Dose: 20 mg Documented by: Ondansetron HCl (Ondansetron 4 Mg Tab.Dis) 4 mg PO Q4H PRN PRN Reason: nausea, able to take PO Oxycodone HCl (Oxycodone 5 Mg Tab) 5 mg PO Q4H PRN PRN Reason: Pain (moderate 4-6) Sodium Chloride (Sodium Chloride 0.9% 10 Ml Syringe) 10 ml FLUSH ASDIRECTED PRN PRN Reason: Keep Vein Open Last Admin: 03/15/21 15:53 Dose: 10 ml Documented by: Sodium Chloride (Sodium Chloride 0.65% Nasal [place] 45 Ml Bottle) 1 ml JOYCE Q1H PRN PRN Reason: nasal congestion Last Admin: 03/19/21 07:23 Dose: 1 spray Documented by: Temazepam (Temazepam 15 Mg Cap) 15 mg PO BEDTIME PRN PRN Reason: Sleep Zinc Sulfate (Zinc Sulfate 220 Mg Cap) 220 mg PO DAILY [facility] Last Admin: 03/18/21 11:35 Dose: 220 mg Documented by: Discontinued Medications Acetaminophen (Acetaminophen 325 Mg Tab) 975 mg PO Q4H PRN PRN Reason: Pain/Fever Apixaban (Apixaban 5 Mg Tab) 10 mg PO ONETIME ONE Stop: 03/15/21 17:26 Last Admin: 03/15/21 17:40 Dose: 10 mg Documented by: Apixaban (Apixaban 5 Mg Tab) 5 mg PO DAILY [facility] Dexamethasone (Dexamethasone 4 Mg/Ml Sdv) 6 mg IVPUSH ONETIME ONE Stop: 03/15/21 16:43 Last Admin: 03/15/21 17:26 Dose: 6 mg Documented by: Sodium Chloride (Normal Saline) 1,000 mls @ 1,000 mls/hr IV .BOLUS [facility] Last Admin: 03/15/21 15:53 Dose: 1,000 mls/hr Documented by: Remdesivir 200 mg/ Sodium (Chloride) 250 mls @ 250 mls/hr IV ONETIME ONE Stop: 03/15/21 16:43 Last Admin: 03/15/21 17:26 Dose: 250 mls/hr Documented by: Morphine Sulfate (Morphine 2 Mg/Ml Syringe) 2 mg IVPUSH Q2H PRN PRN Reason: Pain (severe 7-10) Stop: 03/17/21 06:45 Ondansetron HCl (Ondansetron 4 Mg/2 Ml Sdv) 4 mg IVPUSH ONETIME ONE Stop: 03/15/21 15:05 Last Admin: 03/15/21 15:53 Dose: 4 mg Documented by: - Exam Quality Assessment: Supplemental Oxygen (9L), DVT Prophylaxis General: Alert, Oriented, Cooperative, No Acute Distress HEENT: Pupils Equal, Pupils Reactive, Mucous Membr. Moist/Export Neck: Supple, Trachea Midline Lungs: Decreased Breath Sounds, Crackles, Rhonchi. No: Normal Respiratory Effort (Tachypnea) Cardiovascular: Regular Rate, Regular Rhythm GI/Abdominal Exam: Normal Bowel Sounds, Soft, Non-Tender, No Distention (Male) Exam: Deferred Back Exam: Normal Inspection, Full Range of Motion Extremities: Normal Inspection, Normal Range of Motion, Non-Tender, No Pedal Edema, Normal Capillary Refill Skin: Warm, Dry, Intact Neurological: No New Focal Deficit Psy/Mental Status: Alert, Normal Affect, Normal Mood - Patient Data Lab Results Last 24 hrs: Laboratory Results - last 24 hr 03/18/21 03/18/21 03/19/21 Range/Units 06:00 06:00 05:35 WBC 12.95 H (4.23-9.07) K/mm3 RBC 4.54 L (4.63-6.08) M/mm3 Hgb 13.4 L (13.7-17.5) gm/dl Hct 39.4 L (40.1-51.0) % MCV 86.8 (79.0-92.2) fl MCH 29.5 (25.7-32.2) pg MCHC 34.0 (32.2-35.5) g/dl RDW Std Deviation 42.8 (35.1-43.9) fL Plt Count 292 (163-337) K/mm3 MPV 10.0 (9.4-12.3) fl Neut % (Auto) 78.7 H (34.0-67.9) % Lymph % (Auto) 6.7 L (21.8-53.1) % Gulf % (Auto) 10.1 (5.3-12.2) % Eos % (Auto) 0 L (0.8-7.0) Baso % (Auto) 0.2 (0.1-1.2) % Neut # (Auto) 10.19 H (1.78-5.38) K/mm3 Lymph # (Auto) 0.87 L (1.32-3.57) K/mm3 Gulf # (Auto) 1.31 H (0.30-0.82) K/mm3 Eos # (Auto) 0.00 L (0.04-0.54) K/mm3 Baso # (Auto) 0.02 (0.01-0.08) K/mm3 Manual Slide Review Abnormal smear Normal smear Sodium (136-145) mEq/L Potassium (3.5-5.1) mEq/L Chloride (98-107) mEq/L Carbon Dioxide (21-32) mEq/L Anion Gap (5-15) BUN (7-18) mg/dL Creatinine (0.7-1.3) mg/dL Est Cr Clr Drug Dosing mL/min Estimated GFR (MDRD) (>60) mL/min BUN/Creatinine Ratio (14-18) Glucose (70-99) mg/dL Calcium (8.5-10.1) mg/dL Phosphorus (2.6-4.7) mg/dL Magnesium (1.8-2.4) mg/dL Total Bilirubin (0.2-1.0) mg/dL AST (15-37) U/L ALT (16-63) U/L Alkaline Phosphatase (46-116) U/L C-Reactive Protein (<1.0) mg/dL Total Protein (6.4-8.2) g/dl Albumin (3.4-5.0) g/dl Globulin gm/dL Albumin/Globulin Ratio (1-2) Procalcitonin 0.08 ng/mL 03/19/21 Range/Units 05:35 WBC (4.23-9.07) K/mm3 RBC (4.63-6.08) M/mm3 Hgb (13.7-17.5) gm/dl Hct (40.1-51.0) % MCV (79.0-92.2) fl MCH (25.7-32.2) pg MCHC (32.2-35.5) g/dl RDW Std Deviation (35.1-43.9) fL Plt Count (163-337) K/mm3 MPV (9.4-12.3) fl Neut % (Auto) (34.0-67.9) % Lymph % (Auto) (21.8-53.1) % Gulf % (Auto) (5.3-12.2) % Eos % (Auto) (0.8-7.0) Baso % (Auto) (0.1-1.2) % Neut # (Auto) (1.78-5.38) K/mm3 Lymph # (Auto) (1.32-3.57) K/mm3 Gulf # (Auto) (0.30-0.82) K/mm3 Eos # (Auto) (0.04-0.54) K/mm3 Baso # (Auto) (0.01-0.08) K/mm3 Manual Slide Review Sodium 135 L (136-145) mEq/L Potassium 4.7 (3.5-5.1) mEq/L Chloride 101 (98-107) mEq/L Carbon Dioxide 24 (21-32) mEq/L Anion Gap 14.7 (5-15) BUN 24 H (7-18) mg/dL Creatinine 0.9 (0.7-1.3) mg/dL Est Cr Clr Drug Dosing 93.50 mL/min Estimated GFR (MDRD) > 60 (>60) mL/min BUN/Creatinine Ratio 26.7 H (14-18) Glucose 135 H (70-99) mg/dL Calcium 8.1 L (8.5-10.1) mg/dL Phosphorus 3.9 (2.6-4.7) mg/dL Magnesium 2.0 (1.8-2.4) mg/dL Total Bilirubin 0.4 (0.2-1.0) mg/dL AST 55 H (15-37) U/L ALT 149 H (16-63) U/L Alkaline Phosphatase 47 (46-116) U/L C-Reactive Protein 3.0 H* (<1.0) mg/dL Total Protein 6.1 L (6.4-8.2) g/dl Albumin 2.4 L (3.4-5.0) g/dl Globulin 3.7 gm/dL Albumin/Globulin Ratio 0.7 L (1-2) Procalcitonin ng/mL Result Diagrams: 03/19/21 05:35 03/19/21 05:35 Sepsis Event Note - Evaluation Sepsis Screening Result: No Definite Risk - Focused Exam Vital Signs: Vital Signs Temp Pulse Resp BP Pulse Ox Pulse Ox 03/19/21 04:58 98.2 F 67 20 100/73 92 L 03/19/21 00:12 97.7 F 79 22 H 121/73 92 L 03/18/21 20:53 92 L 03/18/21 20:20 97.9 F 81 20 98/59 L 92 L - Problem List & Annotations (1) Acute respiratory failure due to COVID-19 SNOMED Code(s): 008930216 Code(s): U07.1 - COVID-19; J96.00 - ACUTE RESPIRATORY FAILURE, UNSP W HYPOXIA OR HYPERCAPNIA Status: Acute Priority: High Current Visit: Yes (2) COVID-19 SNOMED Code(s): 083533733 Code(s): U07.1 - COVID-19 Status: Acute Current Visit: Yes (3) Hypoxia SNOMED Code(s): 535110452 Code(s): R09.02 - HYPOXEMIA Status: Acute Current Visit: Yes (4) Left ureter dilated SNOMED Code(s): 83853610 Code(s): N28.82 - MEGALOURETER Status: Acute Current Visit: Yes (5) Pneumonia due to COVID-19 virus SNOMED Code(s): 520791232748867847 Code(s): U07.1 - COVID-19; J12.82 - PNEUMONIA DUE TO CORONAVIRUS DISEASE 2019 Status: Acute Priority: High Current Visit: Yes (6) Pulmonary emboli SNOMED Code(s): 21012859 Code(s): I26.99 - OTHER PULMONARY EMBOLISM WITHOUT ACUTE COR PULMONALE Status: Acute Priority: High Current Visit: Yes Qualifiers: Pulmonary embolism type: multiple subsegmental (without acute cor pulmonale) Qualified Code(s): I26.94 - Multiple subsegmental pulmonary emboli without acute cor pulmonale (7) Hypertension SNOMED Code(s): 41015427 Code(s): I10 - ESSENTIAL (PRIMARY) HYPERTENSION Status: Chronic Priority: Medium Current Visit: Yes Qualifiers: Hypertension type: primary hypertension Qualified Code(s): I10 - Essential (primary) hypertension (8) Vitamin D deficiency SNOMED Code(s): 62166515 Code(s): E55.9 - VITAMIN D DEFICIENCY, UNSPECIFIED Status: Acute Priority: Medium Current Visit: Yes - Problem List Review Problem List Initiated/Reviewed/Updated: Yes - My Orders Last 24 Hours: My Active Orders 03/18/21 10:38 RT Post Treatment Assessment [RC] Click to Edit RT Pre-Treatment Assessment [RC] Click to Edit Consult to Respiratory Therapy [Respiratory Care Assess and Treatment] [CONS] Routine Albuterol [Proventil HFA] See Dose Instructions INH Q2H PRN 03/18/21 10:45 Zinc Sulfate [Zincate] 220 mg PO DAILY 03/18/21 12:28 Sodium Chloride 0.65% [Dellrose Nasal [place]] 1 ml JOYCE Q1H PRN 03/18/21 12:30 Azithromycin [Zithromax] 500 mg Sodium Chloride 0.9% [Normal Saline AdvBag] 250 ml IV Q24H 03/18/21 12:52 VITAMIN D,25-HYDROXY [CHEM] Routine 03/18/21 13:30 cefTRIAXone [Rocephin] 2 gm Sodium Chloride 0.9% [Normal Saline AdvBag] 100 ml IV Q24H 03/20/21 05:11 CBC WITH AUTO DIFF [HEME] AM CMP [COMPREHENSIVE METABOLIC PN,CMP] [CHEM] AM CRP [C-REACTIVE PROTEIN] [CHEM] AM MAGNESIUM [CHEM] AM 03/21/21 05:11 CBC WITH AUTO DIFF [HEME] AM CMP [COMPREHENSIVE METABOLIC PN,CMP] [CHEM] AM CRP [C-REACTIVE PROTEIN] [CHEM] AM MAGNESIUM [CHEM] AM 03/22/21 05:11 CBC WITH AUTO DIFF [HEME] AM CMP [COMPREHENSIVE METABOLIC PN,CMP] [CHEM] AM CRP [C-REACTIVE PROTEIN] [CHEM] AM MAGNESIUM [CHEM] AM - Assessment Assessment:: The patient is a 55-year-old gentleman who was admitted yesterday secondary to acute respiratory failure. The patient's oxygen will continue and continue to be tapered to keep his saturations around 92%. Thus far he has remained on high flow oxygen. The patient will continue the remdesivir 100 mg IV daily for the next 3 days. He is also on dexamethasone. Nebulized breathing treatments will continue. He is to have his diet as tolerated. Because of the pulmonary emboli the patient is currently anticoagulated on Eliquis. He has been encouraged to ambulate in the room. The patient's vital signs will be monitored and if necessary his antihypertensives will be adjusted. - Plan Plan:: 03/16/2021 The patient is a 55-year-old gentleman who had been admitted to acute hospitalization due to COVID-19 pneumonia and bilateral pulmonary emboli. The patient has been started on loading dose of Eliquis at 10 mg p.o. twice daily. The patient will have oxygen to keep his saturations at and around 92%. Patient had 1 200 mg dose of remdesivir in the emergency department and he will have ordered 4 doses of 100 mg IV remdesivir. Patient also has been placed on 6 mg p.o. daily of dexamethasone. The patient has been restarted on his antihypertensive medications and his vital signs will be monitored and his medications adjusted appropriately. The patient has been encouraged to ambulate. He will have regular diet as tolerated. Repeat laboratory studies have been ordered for the morning. The patient should be appropriate for discharge after completion of the remdesivir. 03/17/2021 The patient is a 55-year-old gentleman who was admitted yesterday secondary to acute respiratory failure. The patient's oxygen will continue and continue to be tapered to keep his saturations around 92%. Thus far he has remained on high flow oxygen. The patient will continue the remdesivir 100 mg IV daily for the next 3 days. He is also on dexamethasone. Nebulized breathing treatments will continue. He is to have his diet as tolerated. Because of the pulmonary emboli the patient is currently anticoagulated on Eliquis. He has been encouraged to ambulate in the room. The patient's vital signs will be monitored and if necessary his antihypertensives will be adjusted. 03/18/2021 55-year-old male admitted due to acute respiratory failure secondary to hypoxia and pulmonary emboli. He continues on remdesivir and dexamethasone. He was also placed on Eliquis 10 mg twice daily which should continue for 7 days and then transition to 5 mg twice daily. He is currently utilizing oxy mask at 12 L as he reports his nose is very congested and plugged. We did order saline nasal mist. In reviewing prior laboratory findings it appears patient had toxic granulation on admission and also a leukocytosis of 13. This has been increasing, which may be due to steroid with the patient may have an underlying infectious process. Because of this we will order a procalcitonin and start azithromycin and Rocephin. Labs today show WBC of 15.64. Hemoglobin is 12.9. Platelets are 297,000. Neutrophils are elevated 80.7%. D-dimer is greater than 35.2. Sodium is 136. Potassium 4.3. Chloride 101. Carbon dioxide 28. Anion gap 11.3. BUN is 26. Creatinine 1.0. GFR greater than 60. Glucose is 136. Calcium 8.2. Magnesium 1.9. AST 63, total bilirubin 0.3. ALT 134. Alkaline phosphatase 50. CRP is 5.8. Protein 5.8. Albumin 2.3. Given dilated ureter found on CT scan of the abdomen pelvis we will recommend urology follow-up. We will otherwise continue on current treatment plan. We will add zinc supplementation and check a vitamin D level. Unknown length of stay given severity of symptoms. Length of stay greater than 96 hours due to need for continued treatment. 03/19/2021 55-year-old male admitted to the floor with acute respiratory failure secondary to hypoxia and pulmonary emboli. He continues on remdesivir and dexamethasone, as well as Eliquis 10 mg twice a day is currently on oxygen mask at 9 L. We discussed baricitinib and he is in agreement to starting this. We will continue azithromycin and Rocephin. He states overall he feels about the same as yesterday but he has been able to sit up today. Labs today show WBC of 12.95. Hemoglobin 13.4. Platelet 292,000. Neutrophils are elevated 78.7%. Sodium is 135. Potassium 4.7. Chloride 101. Carbon oxide 24. Anion gap is 14.7. BUN is 24. Creatinine 0.9. GFR greater than 60. Glucose 135. Calcium 8.1. Phosphorus 3.9. Magnesium 2.0. Bilirubin 0.4. AST is 55, ALT 149, alkaline phosphatase 47. CRP is 3.0. Protein is 6.1. Albumin is 2.4. Vitamin D is 29.5 and will be supplemented. Procalcitonin 0.08. Unknown length of stay pending improvement of oxygen saturations. I spoke with Nancy to provide information about baricitinib. I offered the "fax sheet for patients and parents/caregivers, for baricitinib" to read and review. I stated that therapy has been approved by an emergency use authorization process and has not fully been FDA reviewed or approved. I shared potential risks from the therapy including increased risk for serious infections, anaphylaxis, and reaction to medication. I discussed there are other potential treatment options that are currently not FDA approved to treat COVID-19. Offered opportunity to ask questions and all questions were answered. Nancy voiced understanding and agreed to proceed with treatment. Length of stay greater than 96 hours due to need for continued Covid treatment. <Norman Aj - Last Filed: 03/19/21 15:57> - Patient Data Vitals - Most Recent: Last Vital Signs Temp 36.6 C 03/19/21 11:41 Pulse 79 03/19/21 11:41 Resp 15 03/19/21 11:41 BP 109/65 03/19/21 11:41 Pulse Ox 93 L 03/19/21 14:32 I&O - Last 24 Hours: Intake & Output 03/19/21 03/19/21 03/19/21 06:59 14:59 22:59 Intake Total 1100 120 Output Total 1400 Balance -300 120 Lab Results Last 24 Hours: Laboratory Results - last 24 hr 03/18/21 03/19/21 03/19/21 Range/Units 06:00 05:35 05:35 WBC 12.95 H (4.23-9.07) K/mm3 RBC 4.54 L (4.63-6.08) M/mm3 Hgb 13.4 L (13.7-17.5) gm/dl Hct 39.4 L (40.1-51.0) % MCV 86.8 (79.0-92.2) fl MCH 29.5 (25.7-32.2) pg MCHC 34.0 (32.2-35.5) g/dl RDW Std Deviation 42.8 (35.1-43.9) fL Plt Count 292 (163-337) K/mm3 MPV 10.0 (9.4-12.3) fl Neut % (Auto) 78.7 H (34.0-67.9) % Lymph % (Auto) 6.7 L (21.8-53.1) % Gulf % (Auto) 10.1 (5.3-12.2) % Eos % (Auto) 0 L (0.8-7.0) Baso % (Auto) 0.2 (0.1-1.2) % Neut # (Auto) 10.19 H (1.78-5.38) K/mm3 Lymph # (Auto) 0.87 L (1.32-3.57) K/mm3 [place] # (Auto) 1.31 H (0.30-0.82) K/mm3 Eos # (Auto) 0.00 L (0.04-0.54) K/mm3 Baso # (Auto) 0.02 (0.01-0.08) K/mm3 Manual Slide Review Normal smear Sodium (136-145) mEq/L Potassium (3.5-5.1) mEq/L Chloride (98-107) mEq/L Carbon Dioxide (21-32) mEq/L Anion Gap (5-15) BUN (7-18) mg/dL Creatinine (0.7-1.3) mg/dL Est Cr Clr Drug Dosing mL/min Estimated GFR (MDRD) (>60) mL/min BUN/Creatinine Ratio (14-18) Glucose (70-99) mg/dL Calcium (8.5-10.1) mg/dL Phosphorus (2.6-4.7) mg/dL Magnesium (1.8-2.4) mg/dL Total Bilirubin (0.2-1.0) mg/dL AST (15-37) U/L ALT (16-63) U/L Alkaline Phosphatase (46-116) U/L C-Reactive Protein (<1.0) mg/dL Total Protein (6.4-8.2) g/dl Albumin (3.4-5.0) g/dl Globulin gm/dL Albumin/Globulin Ratio (1-2) Vitamin D 25-Hydroxy 29.5 L (30.0-100.0) ng/ml Procalcitonin 0.08 ng/mL 03/19/21 Range/Units 05:35 WBC (4.23-9.07) K/mm3 RBC (4.63-6.08) M/mm3 Hgb (13.7-17.5) gm/dl Hct (40.1-51.0) % MCV (79.0-92.2) fl MCH (25.7-32.2) pg MCHC (32.2-35.5) g/dl RDW Std Deviation (35.1-43.9) fL Plt Count (163-337) K/mm3 MPV (9.4-12.3) fl Neut % (Auto) (34.0-67.9) % Lymph % (Auto) (21.8-53.1) % Gulf % (Auto) (5.3-12.2) % Eos % (Auto) (0.8-7.0) Baso % (Auto) (0.1-1.2) % Neut # (Auto) (1.78-5.38) K/mm3 Lymph # (Auto) (1.32-3.57) K/mm3 Gulf # (Auto) (0.30-0.82) K/mm3 Eos # (Auto) (0.04-0.54) K/mm3 Baso # (Auto) (0.01-0.08) K/mm3 Manual Slide Review Sodium 135 L (136-145) mEq/L Potassium 4.7 (3.5-5.1) mEq/L Chloride 101 (98-107) mEq/L Carbon Dioxide 24 (21-32) mEq/L Anion Gap 14.7 (5-15) BUN 24 H (7-18) mg/dL Creatinine 0.9 (0.7-1.3) mg/dL Est Cr Clr Drug Dosing 93.50 mL/min Estimated GFR (MDRD) > 60 (>60) mL/min BUN/Creatinine Ratio 26.7 H (14-18) Glucose 135 H (70-99) mg/dL Calcium 8.1 L (8.5-10.1) mg/dL Phosphorus 3.9 (2.6-4.7) mg/dL Magnesium 2.0 (1.8-2.4) mg/dL Total Bilirubin 0.4 (0.2-1.0) mg/dL AST 55 H (15-37) U/L ALT 149 H (16-63) U/L Alkaline Phosphatase 47 (46-116) U/L C-Reactive Protein 3.0 H* (<1.0) mg/dL Total Protein 6.1 L (6.4-8.2) g/dl Albumin 2.4 L (3.4-5.0) g/dl Globulin 3.7 gm/dL Albumin/Globulin Ratio 0.7 L (1-2) Vitamin D 25-Hydroxy (30.0-100.0) ng/ml Procalcitonin ng/mL Med Orders - Current: Current Medications Acetaminophen (Acetaminophen 325 Mg Tab) 650 mg PO Q4H PRN PRN Reason: Pain (Mild 1-3)/fever Albuterol (Albuterol 6.7 Gm Inhaler) 0 gm INH Q2H PRN PRN Reason: SOB/wheezing Albuterol/Ipratropium (Albuterol/Ipratropium 3.0-0.5 Mg/3 Ml Neb Soln) 3 ml NEB Q4H PRN PRN Reason: Shortness Of Breath/wheezing Last Admin: 03/19/21 14:31 Dose: 3 ml Documented by: Apixaban (Apixaban 5 Mg Tab) 10 mg PO BID [facility] Stop: 03/22/21 09:01 Last Admin: 03/19/21 09:29 Dose: 10 mg Documented by: Apixaban (Apixaban 5 Mg Tab) 5 mg PO BID [facility] Baricitinib (Baricitinib 2 Mg Tab) 4 mg PO DAILY [facility] Stop: 04/01/21 09:01 Last Admin: 03/19/21 09:30 Dose: 4 mg Documented by: Cholecalciferol (Cholecalciferol (Vitamin D3) 5,000 Unit Cap) 5,000 unit PO DAILY [facility] Last Admin: 03/19/21 09:30 Dose: 5,000 unit Documented by: Dexamethasone (Dexamethasone 6 Mg Tablet) 6 mg PO BID [facility] Docusate Sodium (Docusate Sodium 100 Mg Cap) 100 mg PO BID PRN PRN Reason: Constipation Hydrochlorothiazide (Hydrochlorothiazide 25 Mg Tab) 25 mg PO DAILY [facility] Last Admin: 03/19/21 09:29 Dose: 25 mg Documented by: Remdesivir 100 mg/ Sodium (Chloride) 250 mls @ 250 mls/hr IV Q24H [facility] Stop: 03/19/21 17:01 Last Admin: 03/18/21 17:35 Dose: 250 mls/hr Documented by: Azithromycin 500 mg/ Sodium (Chloride) 250 mls @ 250 mls/hr IV Q24H [facility] Stop: 03/20/21 13:29 Last Admin: 03/19/21 11:33 Dose: 250 mls/hr Documented by: Ceftriaxone Sodium 2 gm/ (Sodium Chloride) 100 mls @ 200 mls/hr IV Q24H [facility] Stop: 03/24/21 13:59 Last Admin: 03/19/21 12:52 Dose: 200 mls/hr Documented by: Lisinopril (Lisinopril 20 Mg Tab) 20 mg PO DAILY [facility] Last Admin: 03/19/21 09:29 Dose: 20 mg Documented by: Ondansetron HCl (Ondansetron 4 Mg Tab.Dis) 4 mg PO Q4H PRN PRN Reason: nausea, able to take PO Oxycodone HCl (Oxycodone 5 Mg Tab) 5 mg PO Q4H PRN PRN Reason: Pain (moderate 4-6) Sodium Chloride (Sodium Chloride 0.9% 10 Ml Syringe) 10 ml FLUSH ASDIRECTED PRN PRN Reason: Keep Vein Open Last Admin: 03/15/21 15:53 Dose: 10 ml Documented by: Sodium Chloride (Sodium Chloride 0.65% Nasal [place] 45 Ml Bottle) 1 ml JOYCE Q1H PRN PRN Reason: nasal congestion Last Admin: 03/19/21 12:57 Dose: 1 spray Documented by: Temazepam (Temazepam 15 Mg Cap) 15 mg PO BEDTIME PRN PRN Reason: Sleep Zinc Sulfate (Zinc Sulfate 220 Mg Cap) 220 mg PO DAILY [facility] Last Admin: 03/19/21 09:29 Dose: 220 mg Documented by: Discontinued Medications Acetaminophen (Acetaminophen 325 Mg Tab) 975 mg PO Q4H PRN PRN Reason: Pain/Fever Apixaban (Apixaban 5 Mg Tab) 10 mg PO ONETIME ONE Stop: 03/15/21 17:26 Last Admin: 03/15/21 17:40 Dose: 10 mg Documented by: Apixaban (Apixaban 5 Mg Tab) 5 mg PO DAILY [facility] Dexamethasone (Dexamethasone 4 Mg/Ml Sdv) 6 mg IVPUSH ONETIME ONE Stop: 03/15/21 16:43 Last Admin: 03/15/21 17:26 Dose: 6 mg Documented by: Dexamethasone (Dexamethasone 4 Mg/Ml 5 Ml Mdv) 12 mg IV Q24H KAR Last Admin: 03/18/21 17:34 Dose: 12 mg Documented by: Dexamethasone (Dexamethasone 6 Mg Tablet) 6 mg PO ONETIME ONE Stop: 03/19/21 11:31 Last Admin: 03/19/21 11:32 Dose: 6 mg Documented by: Sodium Chloride (Normal Saline) 1,000 mls @ 1,000 mls/hr IV .BOLUS KAR Last Admin: 03/15/21 15:53 Dose: 1,000 mls/hr Documented by: Remdesivir 200 mg/ Sodium (Chloride) 250 mls @ 250 mls/hr IV ONETIME ONE Stop: 03/15/21 16:43 Last Admin: 03/15/21 17:26 Dose: 250 mls/hr Documented by: Morphine Sulfate (Morphine 2 Mg/Ml Syringe) 2 mg IVPUSH Q2H PRN PRN Reason: Pain (severe 7-10) Stop: 03/17/21 06:45 Ondansetron HCl (Ondansetron 4 Mg/2 Ml Sdv) 4 mg IVPUSH ONETIME ONE Stop: 03/15/21 15:05 Last Admin: 03/15/21 15:53 Dose: 4 mg Documented by: - Patient Data Lab Results Last 24 hrs: Laboratory Results - last 24 hr 03/18/21 03/19/21 03/19/21 Range/Units 06:00 05:35 05:35 WBC 12.95 H (4.23-9.07) K/mm3 RBC 4.54 L (4.63-6.08) M/mm3 Hgb 13.4 L (13.7-17.5) gm/dl Hct 39.4 L (40.1-51.0) % MCV 86.8 (79.0-92.2) fl MCH 29.5 (25.7-32.2) pg MCHC 34.0 (32.2-35.5) g/dl RDW Std Deviation 42.8 (35.1-43.9) fL Plt Count 292 (163-337) K/mm3 MPV 10.0 (9.4-12.3) fl Neut % (Auto) 78.7 H (34.0-67.9) % Lymph % (Auto) 6.7 L (21.8-53.1) % Gulf % (Auto) 10.1 (5.3-12.2) % Eos % (Auto) 0 L (0.8-7.0) Baso % (Auto) 0.2 (0.1-1.2) % Neut # (Auto) 10.19 H (1.78-5.38) K/mm3 Lymph # (Auto) 0.87 L (1.32-3.57) K/mm3 [place] # (Auto) 1.31 H (0.30-0.82) K/mm3 Eos # (Auto) 0.00 L (0.04-0.54) K/mm3 Baso # (Auto) 0.02 (0.01-0.08) K/mm3 Manual Slide Review Normal smear Sodium (136-145) mEq/L Potassium (3.5-5.1) mEq/L Chloride (98-107) mEq/L Carbon Dioxide (21-32) mEq/L Anion Gap (5-15) BUN (7-18) mg/dL Creatinine (0.7-1.3) mg/dL Est Cr Clr Drug Dosing mL/min Estimated GFR (MDRD) (>60) mL/min BUN/Creatinine Ratio (14-18) Glucose (70-99) mg/dL Calcium (8.5-10.1) mg/dL Phosphorus (2.6-4.7) mg/dL Magnesium (1.8-2.4) mg/dL Total Bilirubin (0.2-1.0) mg/dL AST (15-37) U/L ALT (16-63) U/L Alkaline Phosphatase (46-116) U/L C-Reactive Protein (<1.0) mg/dL Total Protein (6.4-8.2) g/dl Albumin (3.4-5.0) g/dl Globulin gm/dL Albumin/Globulin Ratio (1-2) Vitamin D 25-Hydroxy 29.5 L (30.0-100.0) ng/ml Procalcitonin 0.08 ng/mL 03/19/21 Range/Units 05:35 WBC (4.23-9.07) K/mm3 RBC (4.63-6.08) M/mm3 Hgb (13.7-17.5) gm/dl Hct (40.1-51.0) % MCV (79.0-92.2) fl MCH (25.7-32.2) pg MCHC (32.2-35.5) g/dl RDW Std Deviation (35.1-43.9) fL Plt Count (163-337) K/mm3 MPV (9.4-12.3) fl Neut % (Auto) (34.0-67.9) % Lymph % (Auto) (21.8-53.1) % Gulf % (Auto) (5.3-12.2) % Eos % (Auto) (0.8-7.0) Baso % (Auto) (0.1-1.2) % Neut # (Auto) (1.78-5.38) K/mm3 Lymph # (Auto) (1.32-3.57) K/mm3 [place] # (Auto) (0.30-0.82) K/mm3 Eos # (Auto) (0.04-0.54) K/mm3 Baso # (Auto) (0.01-0.08) K/mm3 Manual Slide Review Sodium 135 L (136-145) mEq/L Potassium 4.7 (3.5-5.1) mEq/L Chloride 101 (98-107) mEq/L Carbon Dioxide 24 (21-32) mEq/L Anion Gap 14.7 (5-15) BUN 24 H (7-18) mg/dL Creatinine 0.9 (0.7-1.3) mg/dL Est Cr Clr Drug Dosing 93.50 mL/min Estimated GFR (MDRD) > 60 (>60) mL/min BUN/Creatinine Ratio 26.7 H (14-18) Glucose 135 H (70-99) mg/dL Calcium 8.1 L (8.5-10.1) mg/dL Phosphorus 3.9 (2.6-4.7) mg/dL Magnesium 2.0 (1.8-2.4) mg/dL Total Bilirubin 0.4 (0.2-1.0) mg/dL AST 55 H (15-37) U/L ALT 149 H (16-63) U/L Alkaline Phosphatase 47 (46-116) U/L C-Reactive Protein 3.0 H* (<1.0) mg/dL Total Protein 6.1 L (6.4-8.2) g/dl Albumin 2.4 L (3.4-5.0) g/dl Globulin 3.7 gm/dL Albumin/Globulin Ratio 0.7 L (1-2) Vitamin D 25-Hydroxy (30.0-100.0) ng/ml Procalcitonin ng/mL Result Diagrams: 03/19/21 05:35 03/19/21 05:35 Sepsis Event Note - Focused Exam Vital Signs: Vital Signs Temp Temp Pulse Pulse Resp BP BP 03/19/21 14:32 03/19/21 12:43 03/19/21 12:21 03/19/21 11:41 36.6 C 79 15 109/65 03/19/21 09:29 117/86 03/19/21 09:24 88 03/19/21 09:23 88 03/19/21 08:35 03/19/21 08:12 36.5 C 95 24 H 117/86 03/19/21 08:00 36.5 C 95 24 H 117/86 03/19/21 04:58 36.8 C 67 20 100/73 Pulse Ox Pulse Ox 03/19/21 14:32 93 L 03/19/21 12:43 94 L 03/19/21 12:21 94 L 03/19/21 11:41 91 L 03/19/21 09:29 03/19/21 09:24 89 L 03/19/21 09:23 89 L 03/19/21 08:35 91 L 03/19/21 08:12 84 L 03/19/21 08:00 84 L 03/19/21 04:58 92 L - Problem List & Annotations (1) Acute respiratory failure due to COVID-19 SNOMED Code(s): 452348945 Code(s): U07.1 - COVID-19; J96.00 - ACUTE RESPIRATORY FAILURE, UNSP W HYPOXIA OR HYPERCAPNIA Status: Acute Priority: High Current Visit: Yes (2) Pulmonary emboli SNOMED Code(s): 19333162 Code(s): I26.99 - OTHER PULMONARY EMBOLISM WITHOUT ACUTE COR PULMONALE Sta tus: Acute Priority: High Current Visit: Yes Qualifiers: Pulmonary embolism type: multiple subsegmental (without acute cor pulmonale) Qualified Code(s): I26.94 - Multiple subsegmental pulmonary emboli without acute cor pulmonale (3) Pneumonia due to COVID-19 virus SNOMED Code(s): 806659772669528717 Code(s): U07.1 - COVID-19; J12.82 - PNEUMONIA DUE TO CORONAVIRUS DISEASE 2019 Status: Acute Priority: High Current Visit: Yes (4) Hypertension SNOMED Code(s): 29124055 Code(s): I10 - ESSENTIAL (PRIMARY) HYPERTENSION Status: Chronic Priority: Medium Current Visit: Yes Qualifiers: Hypertension type: primary hypertension Qualified Code(s): I10 - Essential (primary) hypertension - My Orders Last 24 Hours: My Active Orders 03/22/21 21:00 Apixaban [Eliquis] 5 mg PO BID - Free Text/Narrative Note: I have seen and examined the patient independently of TREV Feliz. I have discussed the case with him. I have also reviewed and agree with the plan of care as outlined by him. Please see orders.
[2021-03-19] MEDS: Albuterol/Ipratropium 3.0-0.5 MG/3 ML Neb Soln NEB PRN ×3 (08:35→19:28)
[2021-03-19] MEDS: Apixaban 5 MG Tab PO SCH ×3 (09:29→23:34)
[2021-03-19] MEDS: Hydrochlorothiazide 25 MG Tab PO SCH (09:29)
[2021-03-19] MEDS: Zinc Sulfate 220 MG Cap PO SCH (09:29)
[2021-03-19] MEDS: Lisinopril 20 MG Tab PO SCH (09:29)
[2021-03-19] MEDS: Cholecalciferol (Vitamin D3) 5,000 UNIT Cap PO SCH (09:30)
[2021-03-19] MEDS ORDERED: Dexamethasone 6 MG TABLET PO ONE (11:30)
[2021-03-19] MEDS: Azithromycin 500 MG in Sodium Chloride 0.9% 250 ML IV SCH (11:33)
[2021-03-19] MEDS: cefTRIAXone 2 GM in Sodium Chloride 0.9% 100 ML IV SCH (12:52)
[2021-03-19] MEDS: REMDESIVIR 100 MG in Sodium Chloride 0.9% 250 ML IV SCH (16:27)
[2021-03-19] MEDS: Dexamethasone 6 MG TABLET PO SCH ×2 (19:39→23:34)
--- NOTE | 2021-03-20 07:07 | PCM.PN ---
- General Info Date of Service: 03/20/21 Admission Dx/Problem (Free Text): Admission Diagnosis/Problem Admission Diagnosis/Problem acute respiratory failure associated with COVID-19 pneumonia and pulmonary emboli. Functional Status: Reports: Pain Controlled, Tolerating Diet, Ambulating, Urinating, Incentive Spirometry, Other (Acapella ). Denies: New Symptoms - Review of Systems General: Reports: Weakness (improving ). Denies: Fever, Fatigue, Malaise, Chills HEENT: Reports: Sinus Congestion. Denies: Eye Pain, Headaches, Sore Throat Pulmonary: Reports: Shortness of Breath, Cough, Sputum. Denies: Pleuritic Chest Pain, Wheezing Cardiovascular: Reports: Dyspnea on Exertion. Denies: Chest Pain, Palpitations, Edema Gastrointestinal: Reports: No Symptoms. Denies: Abdominal Pain, Constipation, Diarrhea, Nausea, Vomiting Genitourinary: Reports: No Symptoms. Denies: Pain Musculoskeletal: Reports: No Symptoms Skin: Reports: No Symptoms. Denies: Cyanosis Neurological: Reports: No Symptoms. Denies: Confusion, Dizziness, Headache, Numbness, Pre-Existing Deficit, Seizure, Syncope, Tingling, Difficulty Walking, Gait Disturbance Psychiatric: Reports: No Symptoms - Patient Data Vitals - Most Recent: Last Vital Signs Temp 97.7 F 03/20/21 04:00 Pulse 74 03/20/21 04:10 Resp 20 03/20/21 04:10 BP 114/75 03/20/21 04:10 Pulse Ox 92 L 03/20/21 04:10 Weight - Most Recent: 190 lb 11.2 oz I&O - Last 24 Hours: Intake & Output 03/19/21 03/20/21 03/20/21 22:59 06:59 14:59 Intake Total 1640 650 Output Total 1660 2025 Balance -20 -1375 Lab Results Last 24 Hours: Laboratory Results - last 24 hr 03/19/21 03/20/21 Range/Units 05:35 05:45 WBC 14.21 H (4.23-9.07) K/mm3 RBC 4.75 (4.63-6.08) M/mm3 Hgb 13.9 (13.7-17.5) gm/dl Hct 41.5 (40.1-51.0) % MCV 87.4 (79.0-92.2) fl MCH 29.3 (25.7-32.2) pg MCHC 33.5 (32.2-35.5) g/dl RDW Std Deviation 43.0 (35.1-43.9) fL Plt Count 341 H (163-337) K/mm3 MPV 9.9 (9.4-12.3) fl Neut % (Auto) 74.7 H (34.0-67.9) % Lymph % (Auto) 7.7 L (21.8-53.1) % Webb % (Auto) 12.0 (5.3-12.2) % Eos % (Auto) 0.1 L (0.8-7.0) Baso % (Auto) 0.2 (0.1-1.2) % Neut # (Auto) 10.62 H (1.78-5.38) K/mm3 Lymph # (Auto) 1.09 L (1.32-3.57) K/mm3 Webb # (Auto) 1.70 H (0.30-0.82) K/mm3 Eos # (Auto) 0.01 L (0.04-0.54) K/mm3 Baso # (Auto) 0.03 (0.01-0.08) K/mm3 Manual Slide Review Normal smear Vitamin D 25-Hydroxy 29.5 L (30.0-100.0) ng/ml Med Orders - Current: Current Medications Acetaminophen (Acetaminophen 325 Mg Tab) 650 mg PO Q4H PRN PRN Reason: Pain (Mild 1-3)/fever Albuterol (Albuterol 6.7 Gm Inhaler) 0 gm INH Q2H PRN PRN Reason: SOB/wheezing Albuterol/Ipratropium (Albuterol/Ipratropium 3.0-0.5 Mg/3 Ml Neb Soln) 3 ml NEB Q4H PRN PRN Reason: Shortness Of Breath/wheezing Last Admin: 03/19/21 19:28 Dose: 3 ml Documented by: Apixaban (Apixaban 5 Mg Tab) 10 mg PO BID KAR Stop: 03/22/21 09:01 Last Admin: 03/19/21 23:34 Dose: Not Given Documented by: Apixaban (Apixaban 5 Mg Tab) 5 mg PO BID KAR Baricitinib (Baricitinib 2 Mg Tab) 4 mg PO DAILY KAR Stop: 12/13/21 09:01 Last Admin: 03/19/21 09:30 Dose: 4 mg Documented by: Cholecalciferol (Cholecalciferol (Vitamin D3) 5,000 Unit Cap) 5,000 unit PO DAILY [facility] Last Admin: 03/19/21 09:30 Dose: 5,000 unit Documented by: Dexamethasone (Dexamethasone 6 Mg Tablet) 6 mg PO BID [facility] Last Admin: 03/19/21 23:34 Dose: Not Given Documented by: Docusate Sodium (Docusate Sodium 100 Mg Cap) 100 mg PO BID PRN PRN Reason: Constipation Hydrochlorothiazide (Hydrochlorothiazide 25 Mg Tab) 25 mg PO DAILY [facility] Last Admin: 03/19/21 09:29 Dose: 25 mg Documented by: Azithromycin 500 mg/ Sodium (Chloride) 250 mls @ 250 mls/hr IV Q24H [facility] Stop: 03/20/21 13:29 Last Admin: 03/19/21 11:33 Dose: 250 mls/hr Documented by: Ceftriaxone Sodium 2 gm/ (Sodium Chloride) 100 mls @ 200 mls/hr IV Q24H [facility] Stop: 03/24/21 13:59 Last Admin: 03/19/21 12:52 Dose: 200 mls/hr Documented by: Lisinopril (Lisinopril 20 Mg Tab) 20 mg PO DAILY [facility] Last Admin: 03/19/21 09:29 Dose: 20 mg Documented by: Ondansetron HCl (Ondansetron 4 Mg Tab.Dis) 4 mg PO Q4H PRN PRN Reason: nausea, able to take PO Oxycodone HCl (Oxycodone 5 Mg Tab) 5 mg PO Q4H PRN PRN Reason: Pain (moderate 4-6) Sodium Chloride (Sodium Chloride 0.9% 10 Ml Syringe) 10 ml FLUSH ASDIRECTED PRN PRN Reason: Keep Vein Open Last Admin: 03/15/21 15:53 Dose: 10 ml Documented by: Sodium Chloride (Sodium Chloride 0.65% Nasal [place] 45 Ml Bottle) 1 ml JOYCE Q1H PRN PRN Reason: nasal congestion Last Admin: 03/19/21 18:17 Dose: 1 spray Documented by: Temazepam (Temazepam 15 Mg Cap) 15 mg PO BEDTIME PRN PRN Reason: Sleep Zinc Sulfate (Zinc Sulfate 220 Mg Cap) 220 mg PO DAILY [facility] Last Admin: 03/19/21 09:29 Dose: 220 mg Documented by: Discontinued Medications Acetaminophen (Acetaminophen 325 Mg Tab) 975 mg PO Q4H PRN PRN Reason: Pain/Fever Apixaban (Apixaban 5 Mg Tab) 10 mg PO ONETIME ONE Stop: 03/15/21 17:26 Last Admin: 03/15/21 17:40 Dose: 10 mg Documented by: Apixaban (Apixaban 5 Mg Tab) 5 mg PO DAILY [facility] Dexamethasone (Dexamethasone 4 Mg/Ml Sdv) 6 mg IVPUSH ONETIME ONE Stop: 03/15/21 16:43 Last Admin: 03/15/21 17:26 Dose: 6 mg Documented by: Dexamethasone (Dexamethasone 4 Mg/Ml 5 Ml Mdv) 12 mg IV Q24H [facility] Last Admin: 03/18/21 17:34 Dose: 12 mg Documented by: Dexamethasone (Dexamethasone 6 Mg Tablet) 6 mg PO ONETIME ONE Stop: 03/19/21 11:31 Last Admin: 03/19/21 11:32 Dose: 6 mg Documented by: Sodium Chloride (Normal Saline) 1,000 mls @ 1,000 mls/hr IV .BOLUS [facility] Last Admin: 03/15/21 15:53 Dose: 1,000 mls/hr Documented by: Remdesivir 200 mg/ Sodium (Chloride) 250 mls @ 250 mls/hr IV ONETIME ONE Stop: 03/15/21 16:43 Last Admin: 03/15/21 17:26 Dose: 250 mls/hr Documented by: Remdesivir 100 mg/ Sodium (Chloride) 250 mls @ 250 mls/hr IV Q24H [facility] Stop: 03/19/21 17:01 Last Admin: 03/19/21 16:27 Dose: 250 mls/hr Documented by: Morphine Sulfate (Morphine 2 Mg/Ml Syringe) 2 mg IVPUSH Q2H PRN PRN Reason: Pain (severe 7-10) Stop: 03/17/21 06:45 Ondansetron HCl (Ondansetron 4 Mg/2 Ml Sdv) 4 mg IVPUSH ONETIME ONE Stop: 03/15/21 15:05 Last Admin: 03/15/21 15:53 Dose: 4 mg Documented by: - Exam Quality Assessment: Supplemental Oxygen (7L), DVT Prophylaxis. No: Urine Catheter General: Alert, Oriented, Cooperative, No Acute Distress HEENT: Pupils Equal, Pupils Reactive, Mucous Membr. Moist/[place] Neck: Supple, Trachea Midline Lungs: Normal Respiratory Effort, Decreased Breath Sounds, Crackles. No: Rhonchi, Wheezing Cardiovascular: Regular Rate, Regular Rhythm GI/Abdominal Exam: Normal Bowel Sounds, Soft, Non-Tender, No Distention (Male) Exam: Deferred Back Exam: Normal Inspection, Full Range of Motion Extremities: Normal Inspection, Normal Range of Motion, Non-Tender, No Pedal Edema, Normal Capillary Refill Skin: Warm, Dry, Intact Neurological: No New Focal Deficit Psy/Mental Status: Alert, Normal Affect, Normal Mood - Patient Data Lab Results Last 24 hrs: Laboratory Results - last 24 hr 03/19/21 03/20/21 Range/Units 05:35 05:45 WBC 14.21 H (4.23-9.07) K/mm3 RBC 4.75 (4.63-6.08) M/mm3 Hgb 13.9 (13.7-17.5) gm/dl Hct 41.5 (40.1-51.0) % MCV 87.4 (79.0-92.2) fl MCH 29.3 (25.7-32.2) pg MCHC 33.5 (32.2-35.5) g/dl RDW Std Deviation 43.0 (35.1-43.9) fL Plt Count 341 H (163-337) K/mm3 MPV 9.9 (9.4-12.3) fl Neut % (Auto) 74.7 H (34.0-67.9) % Lymph % (Auto) 7.7 L (21.8-53.1) % Webb % (Auto) 12.0 (5.3-12.2) % Eos % (Auto) 0.1 L (0.8-7.0) Baso % (Auto) 0.2 (0.1-1.2) % Neut # (Auto) 10.62 H (1.78-5.38) K/mm3 Lymph # (Auto) 1.09 L (1.32-3.57) K/mm3 Webb # (Auto) 1.70 H (0.30-0.82) K/mm3 Eos # (Auto) 0.01 L (0.04-0.54) K/mm3 Baso # (Auto) 0.03 (0.01-0.08) K/mm3 Manual Slide Review Normal smear Vitamin D 25-Hydroxy 29.5 L (30.0-100.0) ng/ml Result Diagrams: 03/20/21 05:45 03/20/21 05:45 Sepsis Event Note - Evaluation Sepsis Screening Result: No Definite Risk - Focused Exam Vital Signs: Vital Signs Temp Temp Pulse Resp BP Pulse Ox Pulse Ox 03/20/21 04:10 74 20 114/75 92 L 03/20/21 04:00 97.7 F 03/20/21 00:23 98.2 F 65 20 129/91 H 93 L 03/19/21 19:40 97.7 F 90 22 H 100/58 L 91 L 03/19/21 19:29 96 - Problem List & Annotations (1) Acute respiratory failure due to COVID-19 SNOMED Code(s): 897175295 Code(s): U07.1 - COVID-19; J96.00 - ACUTE RESPIRATORY FAILURE, UNSP W HYPOXIA OR HYPERCAPNIA Status: Acute Priority: High Current Visit: Yes (2) COVID-19 SNOMED Code(s): 291893527 Code(s): U07.1 - COVID-19 Status: Acute Current Visit: Yes (3) Hypoxia SNOMED Code(s): 129923413 Code(s): R09.02 - HYPOXEMIA Status: Acute Current Visit: Yes (4) Left ureter dilated SNOMED Code(s): 53574399 Code(s): N28.82 - MEGALOURETER Status: Acute Current Visit: Yes (5) Pneumonia due to COVID-19 virus SNOMED Code(s): 994011478734081138 Code(s): U07.1 - COVID-19; J12.82 - PNEUMONIA DUE TO CORONAVIRUS DISEASE 2019 Status: Acute Priority: High Current Visit: Yes (6) Pulmonary emboli SNOMED Code(s): 13878838 Code(s): I26.99 - OTHER PULMONARY EMBOLISM WITHOUT ACUTE COR PULMONALE Status: Acute Priority: High Current Visit: Yes Qualifiers: Pulmonary embolism type: multiple subsegmental (without acute cor pulmonale) Qualified Code(s): I26.94 - Multiple subsegmental pulmonary emboli without acute cor pulmonale (7) Hypertension SNOMED Code(s): 44274781 Code(s): I10 - ESSENTIAL (PRIMARY) HYPERTENSION Status: Chronic Priority: Medium Current Visit: Yes Qualifiers: Hypertension type: primary hypertension Qualified Code(s): I10 - Essential (primary) hypertension (8) Vitamin D deficiency SNOMED Code(s): 77801480 Code(s): E55.9 - VITAMIN D DEFICIENCY, UNSPECIFIED Status: Acute Pr iority: Medium Current Visit: Yes - Problem List Review Problem List Initiated/Reviewed/Updated: Yes - My Orders Last 24 Hours: My Active Orders 03/19/21 09:30 Baricitinib [Olumiant] 4 mg PO DAILY Cholecalciferol (Vitamin D3) [Vitamin D3] 5,000 unit PO DAILY 03/19/21 21:00 dexAMETHasone 6 mg PO BID 03/20/21 05:11 CMP [COMPREHENSIVE METABOLIC PN,CMP] [CHEM] AM CRP [C-REACTIVE PROTEIN] [CHEM] AM MAGNESIUM [CHEM] AM 03/21/21 05:11 CBC WITH AUTO DIFF [HEME] AM CMP [COMPREHENSIVE METABOLIC PN,CMP] [CHEM] AM CRP [C-REACTIVE PROTEIN] [CHEM] AM MAGNESIUM [CHEM] AM 03/22/21 05:11 CBC WITH AUTO DIFF [HEME] AM CMP [COMPREHENSIVE METABOLIC PN,CMP] [CHEM] AM CRP [C-REACTIVE PROTEIN] [CHEM] AM MAGNESIUM [CHEM] AM - Assessment Assessment:: The patient is a 55-year-old gentleman who was admitted yesterday secondary to acute respiratory failure. The patient's oxygen will continue and continue to be tapered to keep his saturations around 92%. Thus far he has remained on high flow oxygen. The patient will continue the remdesivir 100 mg IV daily for the next 3 days. He is also on dexamethasone. Nebulized breathing treatments will continue. He is to have his diet as tolerated. Because of the pulmonary emboli the patient is currently anticoagulated on Eliquis. He has been encouraged to ambulate in the room. The patient's vital signs will be monitored and if necessary his antihypertensives will be adjusted. - Plan Plan:: 03/16/2021 The patient is a 55-year-old gentleman who had been admitted to acute hospitalization due to COVID-19 pneumonia and bilateral pulmonary emboli. The patient has been started on loading dose of Eliquis at 10 mg p.o. twice daily. The patient will have oxygen to keep his saturations at and around 92%. Patient had 1 200 mg dose of remdesivir in the emergency department and he will have ordered 4 doses of 100 mg IV remdesivir. Patient also has been placed on 6 mg p.o. daily of dexamethasone. The patient has been restarted on his antihypertensive medications and his vital signs will be monitored and his medications adjusted appropriately. The patient has been encouraged to ambulate. He will have regular diet as tolerated. Repeat laboratory studies have been ordered for the morning. The patient should be appropriate for discharge after completion of the remdesivir. 03/17/2021 The patient is a 55-year-old gentleman who was admitted yesterday secondary to acute respiratory failure. The patient's oxygen will continue and continue to be tapered to keep his saturations around 92%. Thus far he has remained on high flow oxygen. The patient will continue the remdesivir 100 mg IV daily for the next 3 days. He is also on dexamethasone. Nebulized breathing treatments will continue. He is to have his diet as tolerated. Because of the pulmonary emboli the patient is currently anticoagulated on Eliquis. He has been encouraged to ambulate in the room. The patient's vital signs will be monitored and if necessary his antihypertensives will be adjusted. 03/18/2021 55-year-old male admitted due to acute respiratory failure secondary to hypoxia and pulmonary emboli. He continues on remdesivir and dexamethasone. He was also placed on Eliquis 10 mg twice daily which should continue for 7 days and then transition to 5 mg twice daily. He is currently utilizing oxy mask at 12 L as he reports his nose is very congested and plugged. We did order saline na milind mist. In reviewing prior laboratory findings it appears patient had toxic granulation on admission and also a leukocytosis of 13. This has been increasing, which may be due to steroid with the patient may have an underlying infectious process. Because of this we will order a procalcitonin and start azithromycin and Rocephin. Labs today show WBC of 15.64. Hemoglobin is 12.9. Platelets are 297,000. Neutrophils are elevated 80.7%. D-dimer is greater than 35.2. Sodium is 136. Potassium 4.3. Chloride 101. Carbon dioxide 28. Anion gap 11.3. BUN is 26. Creatinine 1.0. GFR greater than 60. Glucose is 136. Calcium 8.2. Magnesium 1.9. AST 63, total bilirubin 0.3. ALT 134. Alkaline phosphatase 50. CRP is 5.8. Protein 5.8. Albumin 2.3. Given dilated ureter found on CT scan of the abdomen pelvis we will recommend urology follow-up. We will otherwise continue on current treatment plan. We will add zinc supplementation and check a vitamin D level. Unknown length of stay given severity of symptoms. Length of stay greater than 96 hours due to need for continued treatment. 03/19/2021 55-year-old male admitted to the floor with acute respiratory failure secondary to COVID-19 and pulmonary emboli. He continues on remdesivir and dexamethasone, as well as Eliquis 10 mg twice a day is currently on oxygen mask at 9 L. We discussed baricitinib and he is in agreement to starting this. We will continue azithromycin and Rocephin. He states overall he feels about the same as yesterday but he has been able to sit up today. Labs today show WBC of 12.95. Hemoglobin 13.4. Platelet 292,000. Neutrophils are elevated 78.7%. Sodium is 135. Potassium 4.7. Chloride 101. Carbon oxide 24. Anion gap is 14.7. BUN is 24. Creatinine 0.9. GFR greater than 60. Glucose 135. Calcium 8.1. Phosphorus 3.9. Magnesium 2.0. Bilirubin 0.4. AST is 55, ALT 149, alkaline phosphatase 47. CRP is 3.0. Protein is 6.1. Albumin is 2.4. Vitamin D is 29.5 and will be supplemented. Procalcitonin 0.08. Unknown length of stay pending improvement of oxygen saturations. I spoke with Nancy to provide information about baricitinib. I offered the "fax sheet for patients and parents/caregivers, for baricitinib" to read and review. I stated that therapy has been approved by an emergency use authorization process and has not fully been FDA reviewed or approved. I shared potential risks from the therapy including increased risk for serious infections, anaphylaxis, and reaction to medication. I discussed there are other potential treatment options that are currently not FDA approved to treat COVID-19. Offered opportunity to ask questions and all questions were answered. Nancy voiced understanding and agreed to proceed with treatment. Length of stay greater than 96 hours due to need for continued Covid treatment. 03/20/2021 This is a 55-year-old male admitted to the floor with acute respiratory failure secondary to COVID-19 and pulmonary emboli. He continues on Eliquis for his PEs. He is receiving azithromycin and Rocephin and will have his last dose of azithromycin today. He is receiving twice daily dexamethasone and baricitinib. He has completed remdesivir. He remains on 7 L of oxygen via oxygen mask. He has had overall poor motivation and we have been working with this. We continue to encourage incentive spirometry and Acapella use along with proning. He states that his nose is still somewhat congested but is improving. Labs today show WBC of 14.21. Hemoglobin is 13.9. Platelets are 341,000. Neutrophils are elevated 74.7. Smear was normal. Sodium is down to 133 and we will keep m onitoring this. Patient was on HCTZ and lisinopril combination at home. This is likely driving down his sodium and we will discontinue his HCTZ as his blood pressure has been very good while here. Potassium is 4.7. Chloride 100. Carbon dioxide 25. BUN is 25. Creatinine 1.0. GFR greater than 60. Glucose 162. Calcium 8.7. Magnesium 2.0. Total bilirubin 0.3. AST is 35, ALT 137, alkaline phosphatase 59. CRP is 1.7. Protein is 6.2. Albumin is up to 2.5. We will continue current treatment plan and encourage I-S, Acapella, and proning. Unknown length of stay due to severity of symptoms.
[2021-03-20] MEDS: Zinc Sulfate 220 MG Cap PO SCH (08:01)
[2021-03-20] MEDS: Apixaban 5 MG Tab PO SCH ×2 (08:01→21:05)
[2021-03-20] MEDS: Dexamethasone 6 MG TABLET PO SCH ×2 (08:02→21:05)
[2021-03-20] MEDS: Lisinopril 20 MG Tab PO SCH (08:02)
[2021-03-20] MEDS: Hydrochlorothiazide 25 MG Tab PO SCH (08:02)
[2021-03-20] MEDS: Cholecalciferol (Vitamin D3) 5,000 UNIT Cap PO SCH (08:02)
[2021-03-20] MEDS: Albuterol/Ipratropium 3.0-0.5 MG/3 ML Neb Soln NEB PRN ×3 (08:14→21:15)
[2021-03-20] MEDS: Azithromycin 500 MG in Sodium Chloride 0.9% 250 ML IV SCH (11:57)
[2021-03-20] MEDS: cefTRIAXone 2 GM in Sodium Chloride 0.9% 100 ML IV SCH (13:04)
--- NOTE | 2021-03-21 06:44 | PCM.PN ---
- General Info Date of Service: 03/21/21 Admission Dx/Problem (Free Text): Admission Diagnosis/Problem Admission Diagnosis/Problem acute respiratory failure associated with COVID-19 pneumonia and pulmonary emboli. Functional Status: Reports: Pain Controlled, Tolerating Diet, Ambulating, Urinating, Incentive Spirometry, Other (Acapella ). Denies: New Symptoms - Review of Systems General: Reports: No Symptoms. Denies: Fever, Weakness, Fatigue, Malaise, Chills HEENT: Reports: No Symptoms. Denies: Headaches, Sore Throat Pulmonary: Reports: Shortness of Breath, Cough, Sputum. Denies: Pleuritic Chest Pain, Wheezing Cardiovascular: Reports: No Symptoms, Dyspnea on Exertion. Denies: Chest Pain, Palpitations, Edema, Lightheadedness Gastrointestinal: Reports: No Symptoms. Denies: Abdominal Pain, Constipation, Diarrhea, Nausea, Vomiting Genitourinary: Reports: No Symptoms. Denies: Pain Musculoskeletal: Reports: No Symptoms Skin: Reports: No Symptoms. Denies: Cyanosis Neurological: Reports: No Symptoms. Denies: Confusion, Dizziness, Headache, Numbness, Pre-Existing Deficit, Seizure, Syncope, Tingling, Tremors, Trouble Speaking, Difficulty Walking, Weakness, Gait Disturbance Psychiatric: Reports: No Symptoms - Patient Data Vitals - Most Recent: Last Vital Signs Temp 98.1 F 03/21/21 04:49 Pulse 70 03/21/21 04:49 Resp 18 03/21/21 04:49 BP 109/62 03/21/21 04:49 Pulse Ox 93 L 03/21/21 06:30 Weight - Most Recent: 193 lb 8 oz I&O - Last 24 Hours: Intake & Output 03/20/21 03/20/21 03/21/21 14:59 22:59 06:59 Intake Total 0 950 650 Output Total 2110 850 Balance 0 -1160 -200 Lab Results Last 24 Hours: Laboratory Results - last 24 hr 03/20/21 03/21/21 03/21/21 Range/Units 05:45 05:06 05:06 WBC 23.46 H (4.23-9.07) K/mm3 RBC 5.06 (4.63-6.08) M/mm3 Hgb 14.8 (13.7-17.5) gm/dl Hct 44.1 (40.1-51.0) % MCV 87.2 (79.0-92.2) fl MCH 29.2 (25.7-32.2) pg MCHC 33.6 (32.2-35.5) g/dl RDW Std Deviation 43.5 (35.1-43.9) fL Plt Count 365 H (163-337) K/mm3 MPV 10.0 (9.4-12.3) fl Neut % (Auto) 77.7 H (34.0-67.9) % Lymph % (Auto) 6.2 L (21.8-53.1) % [place] % (Auto) 9.2 (5.3-12.2) % Eos % (Auto) 0 L (0.8-7.0) Baso % (Auto) 0.6 (0.1-1.2) % Neut # (Auto) 18.20 H (1.78-5.38) K/mm3 Lymph # (Auto) 1.46 (1.32-3.57) K/mm3 [place] # (Auto) 2.17 H (0.30-0.82) K/mm3 Eos # (Auto) 0.01 L (0.04-0.54) K/mm3 Baso # (Auto) 0.15 H (0.01-0.08) K/mm3 Sodium 133 L 134 L (136-145) mEq/L Potassium 4.7 4.9 (3.5-5.1) mEq/L Chloride 100 100 (98-107) mEq/L Carbon Dioxide 25 23 (21-32) mEq/L Anion Gap 12.7 15.9 H (5-15) BUN 25 H 30 H (7-18) mg/dL Creatinine 1.0 1.1 (0.7-1.3) mg/dL Est Cr Clr Drug Dosing 84.36 76.69 mL/min Estimated GFR (MDRD) > 60 > 60 (>60) mL/min BUN/Creatinine Ratio 25.0 H 27.3 H (14-18) Glucose 162 H 169 H (70-99) mg/dL Calcium 8.7 8.8 (8.5-10.1) mg/dL Magnesium 2.0 2.0 (1.8-2.4) mg/dL Total Bilirubin 0.3 0.3 (0.2-1.0) mg/dL AST 35 26 (15-37) U/L ALT 137 H 118 H (16-63) U/L Alkaline Phosphatase 59 75 (46-116) U/L C-Reactive Protein 1.7 H* 0.8 (<1.0) mg/dL Total Protein 6.2 L 6.4 (6.4-8.2) g/dl Albumin 2.5 L 2.7 L (3.4-5.0) g/dl Globulin 3.7 3.7 gm/dL Albumin/Globulin Ratio 0.7 L 0.7 L (1-2) Med Orders - Current: Current Medications Acetaminophen (Acetaminophen 325 Mg Tab) 650 mg PO Q4H PRN PRN Reason: Pain (Mild 1-3)/fever Albuterol (Albuterol 6.7 Gm Inhaler) 0 gm INH Q2H PRN PRN Reason: SOB/wheezing Albuterol/Ipratropium (Albuterol/Ipratropium 3.0-0.5 Mg/3 Ml Neb Soln) 3 ml NEB Q4H PRN PRN Reason: Shortness Of Breath/wheezing Last Admin: 03/20/21 21:15 Dose: 3 ml Documented by: Apixaban (Apixaban 5 Mg Tab) 10 mg PO BID [facility] Stop: 03/22/21 09:01 Last Admin: 03/20/21 21:05 Dose: 10 mg Documented by: Apixaban (Apixaban 5 Mg Tab) 5 mg PO BID [facility] Baricitinib (Baricitinib 2 Mg Tab) 4 mg PO DAILY [facility] Stop: 04/01/21 09:01 Last Admin: 03/20/21 08:02 Dose: 4 mg Documented by: Cholecalciferol (Cholecalciferol (Vitamin D3) 5,000 Unit Cap) 5,000 unit PO DAILY [facility] Last Admin: 03/20/21 08:02 Dose: 5,000 unit Documented by: Dexamethasone (Dexamethasone 6 Mg Tablet) 6 mg PO BID [facility] Last Admin: 03/20/21 21:05 Dose: 6 mg Documented by: Docusate Sodium (Docusate Sodium 100 Mg Cap) 100 mg PO BID PRN PRN Reason: Constipation Ceftriaxone Sodium 2 gm/ (Sodium Chloride) 100 mls @ 200 mls/hr IV Q24H [facility] Stop: 03/22/21 13:59 Last Admin: 03/20/21 13:04 Dose: 200 mls/hr Documented by: Lisinopril (Lisinopril 20 Mg Tab) 20 mg PO DAILY [facility] Last Admin: 03/20/21 08:02 Dose: 20 mg Documented by: Ondansetron HCl (Ondansetron 4 Mg Tab.Dis) 4 mg PO Q4H PRN PRN Reason: nausea, able to take PO Oxycodone HCl (Oxycodone 5 Mg Tab) 5 mg PO Q4H PRN PRN Reason: Pain (moderate 4-6) Sodium Chloride (Sodium Chloride 0.9% 10 Ml Syringe) 10 ml FLUSH ASDIRECTED PRN PRN Reason: Keep Vein Open Last Admin: 03/15/21 15:53 Dose: 10 ml Documented by: Sodium Chloride (Sodium Chloride 0.65% Nasal [place] 45 Ml Bottle) 1 ml JOYCE Q1H PRN PRN Reason: nasal congestion Last Admin: 03/19/21 18:17 Dose: 1 spray Documented by: Temazepam (Temazepam 15 Mg Cap) 15 mg PO BEDTIME PRN PRN Reason: Sleep Zinc Sulfate (Zinc Sulfate 220 Mg Cap) 220 mg PO DAILY [facility] Last Admin: 03/20/21 08:01 Dose: 220 mg Documented by: Discontinued Medications Acetaminophen (Acetaminophen 325 Mg Tab) 975 mg PO Q4H PRN PRN Reason: Pain/Fever Apixaban (Apixaban 5 Mg Tab) 10 mg PO ONETIME ONE Stop: 03/15/21 17:26 Last Admin: 03/15/21 17:40 Dose: 10 mg Documented by: Apixaban (Apixaban 5 Mg Tab) 5 mg PO DAILY [facility] Dexamethasone (Dexamethasone 4 Mg/Ml Sdv) 6 mg IVPUSH ONETIME ONE Stop: 03/15/21 16:43 Last Admin: 03/15/21 17:26 Dose: 6 mg Documented by: Dexamethasone (Dexamethasone 4 Mg/Ml 5 Ml Mdv) 12 mg IV Q24H [facility] Last Admin: 03/18/21 17:34 Dose: 12 mg Documented by: Dexamethasone (Dexamethasone 6 Mg Tablet) 6 mg PO ONETIME ONE Stop: 03/19/21 11:31 Last Admin: 03/19/21 11:32 Dose: 6 mg Documented by: Hydrochlorothiazide (Hydrochlorothiazide 25 Mg Tab) 25 mg PO DAILY [facility] Last Admin: 03/20/21 08:02 Dose: 25 mg Documented by: Sodium Chloride (Normal Saline) 1,000 mls @ 1,000 mls/hr IV .BOLUS [facility] Last Admin: 03/15/21 15:53 Dose: 1,000 mls/hr Documented by: Remdesivir 200 mg/ Sodium (Chloride) 250 mls @ 250 mls/hr IV ONETIME ONE Stop: 03/15/21 16:43 Last Admin: 03/15/21 17:26 Dose: 250 mls/hr Documented by: Remdesivir 100 mg/ Sodium (Chloride) 250 mls @ 250 mls/hr IV Q24H [facility] Stop: 03/19/21 17:01 Last Admin: 03/19/21 16:27 Dose: 250 mls/hr Documented by: Azithromycin 500 mg/ Sodium (Chloride) 250 mls @ 250 mls/hr IV Q24H [facility] Stop: 03/20/21 13:29 Last Admin: 03/20/21 11:57 Dose: 250 mls/hr Documented by: Morphine Sulfate (Morphine 2 Mg/Ml Syringe) 2 mg IVPUSH Q2H PRN PRN Reason: Pain (severe 7-10) Stop: 03/17/21 06:45 Ondansetron HCl (Ondansetron 4 Mg/2 Ml Sdv) 4 mg IVPUSH ONETIME ONE Stop: 03/15/21 15:05 Last Admin: 03/15/21 15:53 Dose: 4 mg Documented by: - Exam Quality Assessment: Supplemental Oxygen (5L via oxy mask), DVT Prophylaxis. No: Urine Catheter General: Alert, Oriented, Cooperative, No Acute Distress HEENT: Pupils Equal, Pupils Reactive, Mucous Membr. Moist/[place] Neck: Supple, Trachea Midline Lungs: Decreased Breath Sounds, Crackles. No: Rhonchi, Wheezing Cardiovascular: Regular Rate, Regular Rhythm GI/Abdominal Exam: Normal Bowel Sounds, Soft, Non-Tender, No Distention (Male) Exam: Deferred Back Exam: Normal Inspection, Full Range of Motion Extremities: Normal Inspection, Normal Range of Motion, Non-Tender, No Pedal Edema, Normal Capillary Refill Skin: Warm, Dry, Intact Neurological: No New Focal Deficit Psy/Mental Status: Alert, Normal Affect, Normal Mood - Patient Data Lab Results Last 24 hrs: Laboratory Results - last 24 hr 03/20/21 03/21/21 03/21/21 Range/Units 05:45 05:06 05:06 WBC 23.46 H (4.23-9.07) K/mm3 RBC 5.06 (4.63-6.08) M/mm3 Hgb 14.8 (13.7-17.5) gm/dl Hct 44.1 (40.1-51.0) % MCV 87.2 (79.0-92.2) fl MCH 29.2 (25.7-32.2) pg MCHC 33.6 (32.2-35.5) g/dl RDW Std Deviation 43.5 (35.1-43.9) fL Plt Count 365 H (163-337) K/mm3 MPV 10.0 (9.4-12.3) fl Neut % (Auto) 77.7 H (34.0-67.9) % Lymph % (Auto) 6.2 L (21.8-53.1) % [place] % (Auto) 9.2 (5.3-12.2) % Eos % (Auto) 0 L (0.8-7.0) Baso % (Auto) 0.6 (0.1-1.2) % Neut # (Auto) 18.20 H (1.78-5.38) K/mm3 Lymph # (Auto) 1.46 (1.32-3.57) K/mm3 [place] # (Auto) 2.17 H (0.30-0.82) K/mm3 Eos # (Auto) 0.01 L (0.04-0.54) K/mm3 Baso # (Auto) 0.15 H (0.01-0.08) K/mm3 Sodium 133 L 134 L (136-145) mEq/L Potassium 4.7 4.9 (3.5-5.1) mEq/L Chloride 100 100 (98-107) mEq/L Carbon Dioxide 25 23 (21-32) mEq/L Anion Gap 12.7 15.9 H (5-15) BUN 25 H 30 H (7-18) mg/dL Creatinine 1.0 1.1 (0.7-1.3) mg/dL Est Cr Clr Drug Dosing 84.36 76.69 mL/min Estimated GFR (MDRD) > 60 > 60 (>60) mL/min BUN/Creatinine Ratio 25.0 H 27.3 H (14-18) Glucose 162 H 169 H (70-99) mg/dL Calcium 8.7 8.8 (8.5-10.1) mg/dL Magnesium 2.0 2.0 (1.8-2.4) mg/dL Total Bilirubin 0.3 0.3 (0.2-1.0) mg/dL AST 35 26 (15-37) U/L ALT 137 H 118 H (16-63) U/L Alkaline Phosphatase 59 75 (46-116) U/L C-Reactive Protein 1.7 H* 0.8 (<1.0) mg/dL Total Protein 6.2 L 6.4 (6.4-8.2) g/dl Albumin 2.5 L 2.7 L (3.4-5.0) g/dl Globulin 3.7 3.7 gm/dL Albumin/Globulin Ratio 0.7 L 0.7 L (1-2) Result Diagrams: 03/21/21 05:06 03/21/21 05:06 Sepsis Event Note - Evaluation Sepsis Screening Result: No Definite Risk - Focused Exam Vital Signs: Vital Signs Temp Pulse Resp BP Pulse Ox Pulse Ox Pulse Ox 03/21/21 06:30 93 L 03/21/21 04:49 98.1 F 70 18 109/62 93 L 03/21/21 00:12 97.9 F 70 18 91/56 L 97 03/20/21 21:17 94 L 03/20/21 19:48 98.2 F 82 20 104/63 93 L - Problem List & Annotations (1) Acute respiratory failure due to COVID-19 SNOMED Code(s): 931490567 Code(s): U07.1 - COVID-19; J96.00 - ACUTE RESPIRATORY FAILURE, UNSP W HYPOXIA OR HYPERCAPNIA Status: Acute Priority: High Current Visit: Yes (2) COVID-19 SNOMED Code(s): 757406493 Code(s): U07.1 - COVID-19 Status: Acute Current Visit: Yes (3) Hypoxia SNOMED Code(s): 103837574 Code(s): R09.02 - HYPOXEMIA Status: Acute Current Visit: Yes (4) Left ureter dilated SNOMED Code(s): 43062618 Code(s): N28.82 - [place]GAL[place]RETER Status: Acute Current Visit: Yes (5) Pneumonia due to COVID-19 virus SNOMED Code(s): 106777055116255543 Code(s): U07.1 - COVID-19; J12.82 - PNEUMONIA DUE TO CORONAVIRUS DISEASE 2019 Status: Acute Priority: High Current Visit: Yes (6) Pulmonary emboli SNOMED Code(s): 48207880 Code(s): I26.99 - OTHER PULMONARY EMBOLISM WITHOUT ACUTE COR PULMONALE Status: Acute Priority: High Current Visit: Yes Qualifiers: Pulmonary embolism type: multiple subsegmental (without acute cor pulmonale) Qualified Code(s): I26.94 - Multiple subsegmental pulmonary emboli without acute cor pulmonale (7) Hypertension SNOMED Code(s): 16782093 Code(s): I10 - ESSENTIAL (PRIMARY) HYPERTENSION Status: Chronic Priority: Medium Current Visit: Yes Qualifiers: Hypertension type: primary hypertension Qualified Code(s): I10 - Essential (primary) hypertension (8) Vitamin D deficiency SNOMED Code(s): 27656235 Code(s): E55.9 - VITAMIN D DEFICIENCY, UNSPECIFIED Status: Acute Priority: Medium Current Visit: Yes - Problem List Review Problem List Initiated/Reviewed/Updated: Yes - My Orders Last 24 Hours: My Active Orders 03/21/21 05:06 CBC WITH AUTO DIFF [HEME] AM 03/22/21 05:11 CBC WITH AUTO DIFF [HEME] AM CMP [COMPREHENSIVE METABOLIC PN,CMP] [CHEM] AM CRP [C-REACTIVE PROTEIN] [CHEM] AM MAGNESIUM [CHEM] AM - Assessment Assessment:: The patient is a 55-year-old gentleman who was admitted yesterday secondary to acute respiratory failure. The patient's oxygen will continue and continue to be tapered to keep his saturations around 92%. Thus far he has remained on high flow oxygen. The patient will continue the remdesivir 100 mg IV daily for the next 3 days. He is also on dexamethasone. Nebulized breathing treatments will continue. He is to have his diet as tolerated. Because of the pulmonary emboli the patient is currently anticoagulated on Eliquis. He has been encouraged to ambulate in the room. The patient's vital signs will be monitored and if necessary his antihypertensives will be adjusted. - Plan Plan:: 03/16/2021 The patient is a 55-year-old gentleman who had been admitted to acute hospitalization due to COVID-19 pneumonia and bilateral pulmonary emboli. The patient has been started on loading dose of Eliquis at 10 mg p.o. twice daily. The patient will have oxygen to keep his saturations at and around 92%. Patient had 1 200 mg dose of remdesivir in the emergency department and he will have ordered 4 doses of 100 mg IV remdesivir. Patient also has been placed on 6 mg p.o. daily of dexamethasone. The patient has been restarted on his antihypertensive medications and his vital signs will be monitored and his medications adjusted appropriately. The patient has been encouraged to ambulate. He will have regular diet as tolerated. Repeat laboratory studies lares ve been ordered for the morning. The patient should be appropriate for discharge after completion of the remdesivir. 03/17/2021 The patient is a 55-year-old gentleman who was admitted yesterday secondary to acute respiratory failure. The patient's oxygen will continue and continue to be tapered to keep his saturations around 92%. Thus far he has remained on high flow oxygen. The patient will continue the remdesivir 100 mg IV daily for the next 3 days. He is also on dexamethasone. Nebulized breathing treatments will continue. He is to have his diet as tolerated. Because of the pulmonary emboli the patient is currently anticoagulated on Eliquis. He has been encouraged to ambulate in the room. The patient's vital signs will be monitored and if necessary his antihypertensives will be adjusted. 03/18/2021 55-year-old male admitted due to acute respiratory failure secondary to hypoxia and pulmonary emboli. He continues on remdesivir and dexamethasone. He was also placed on Eliquis 10 mg twice daily which should continue for 7 days and then transition to 5 mg twice daily. He is currently utilizing oxy mask at 12 L as he reports his nose is very congested and plugged. We did order saline nasal mist. In reviewing prior laboratory findings it appears patient had toxic granulation on admission and also a leukocytosis of 13. This has been increasing, which may be due to steroid with the patient may have an underlying infectious process. Because of this we will order a procalcitonin and start azithromycin and Rocephin. Labs today show WBC of 15.64. Hemoglobin is 12.9. Platelets are 297,000. Neutrophils are elevated 80.7%. D-dimer is greater than 35.2. Sodium is 136. Potassium 4.3. Chloride 101. Carbon dioxide 28. Anion gap 11.3. BUN is 26. Creatinine 1.0. GFR greater than 60. Glucose is 136. Calcium 8.2. Magnesium 1.9. AST 63, total bilirubin 0.3. ALT 134. Alkaline phosphatase 50. CRP is 5.8. Protein 5.8. Albumin 2.3. Given dilated ureter found on CT scan of the abdomen pelvis we will recommend urology follow-up. We will otherwise continue on current treatment plan. We will add zinc supplementation and check a vitamin D level. Unknown length of stay given severity of symptoms. Length of stay greater than 96 hours due to need for continued treatment. 03/19/2021 55-year-old male admitted to the floor with acute respiratory failure secondary to COVID-19 and pulmonary emboli. He continues on remdesivir and dexamethasone, as well as Eliquis 10 mg twice a day is currently on oxygen mask at 9 L. We discussed baricitinib and he is in agreement to starting this. We will continue azithromycin and Rocephin. He states overall he feels about the same as yesterday but he has been able to sit up today. Labs today show WBC of 12.95. Hemoglobin 13.4. Platelet 292,000. Neutrophils are elevated 78.7%. Sodium is 135. Potassium 4.7. Chloride 101. Carbon oxide 24. Anion gap is 14.7. BUN is 24. Creatinine 0.9. GFR greater than 60. Glucose 135. Calcium 8.1. Phosphorus 3.9. Magnesium 2.0. Bilirubin 0.4. AST is 55, ALT 149, alkaline phosphatase 47. CRP is 3.0. Protein is 6.1. Albumin is 2.4. Vitamin D is 29.5 and will be supplemented. Procalcitonin 0.08. Unknown length of stay pending improvement of oxygen saturations. I spoke with Nancy to provide information about baricitinib. I offered the "fax sheet for patients and parents/caregivers, for baricitinib" to read and review. I stated that therapy has been approved by an emergency use authorization process and has not fully been FDA reviewed or approved. I shared potential risks from the therapy including increased risk for serious infections, anaphylaxis, and reaction to medication. I discussed there are other potential treatment options that are currently not FDA approved to treat COVID-19. Offered opportunity to ask questions and all questions were answered. Nancy voiced understanding and agreed to proceed with treatment. Length of stay greater than 96 hours due to need for continued Covid treatment. 03/20/2021 This is a 55-year-old male admitted to the floor with acute respiratory failure secondary to COVID-19 and pulmonary emboli. He continues on Eliquis for his PEs. He is receiving azithromycin and Rocephin and will have his last dose of azithromycin today. He is receiving twice daily dexamethasone and baricitinib. He has completed remdesivir. He remains on 7 L of oxygen via oxygen mask. He has had overall poor motivation and we have been working with this. We continue to encourage incentive spirometry and Acapella use along with proning. He states that his nose is still somewhat congested but is improving. Labs today show WBC of 14.21. Hemoglobin is 13.9. Platelets are 341,000. Neutrophils are elevated 74.7. Smear was normal. Sodium is down to 133 and we will keep monitoring this. Patient was on HCTZ and lisinopril combination at home. This is likely driving down his sodium and we will discontinue his HCTZ as his blood pressure has been very good while here. Potassium is 4.7. Chloride 100. Carbon dioxide 25. BUN is 25. Creatinine 1.0. GFR greater than 60. Glucose 162. Calcium 8.7. Magnesium 2.0. Total bilirubin 0.3. AST is 35, ALT 137, alkaline phosphatase 59. CRP is 1.7. Protein is 6.2. Albumin is up to 2.5. We will continue current treatment plan and encourage I-S, Acapella, and proning. Unknown length of stay due to severity of symptoms. 03/21/2021 55-year-old male admitted for treatment of COVID-19 pneumonia and PE. Continues on Eliquis and will transition to 5 mg twice daily dosing tomorrow. He completed azithromycin and remains on Rocephin. He is on twice daily dexamethasone and baricitinib for his COVID-19 pneumonia. Continues to utilize incentive spirometry and Acapella as well as prone. We discussed plan of care and duration of stay. He is down to 5 L via oxy mask. WBC was 23.46. Hemoglobin 14.8. Platelet 365,000. Neutrophils are elevated at 77.7. Sodium is 134. Potassium 4.9. Chloride 100. Carbon dioxide 23. Anion gap is 15.9. BUN is 30. Creatinine 1.1. GFR greater than 60. Glucose is 169. Calcium is 8 .8. Magnesium is 2.0. AST is 26, ALT 118, alkaline phosphatase 75. CRP 0.8. Albumin is 2.7. We will decrease his steroid back down to 6 mg daily as his inflammatory markers have responded appropriately. Unknown length of stay due to severity of symptoms.
[2021-03-21] MEDS: Apixaban 5 MG Tab PO SCH ×2 (08:46→20:19)
[2021-03-21] MEDS: Lisinopril 20 MG Tab PO SCH (08:46)
[2021-03-21] MEDS: Dexamethasone 6 MG TABLET PO SCH (08:46)
[2021-03-21] MEDS: Cholecalciferol (Vitamin D3) 5,000 UNIT Cap PO SCH (08:46)
[2021-03-21] MEDS: Zinc Sulfate 220 MG Cap PO SCH (08:46)
[2021-03-21] MEDS: Albuterol/Ipratropium 3.0-0.5 MG/3 ML Neb Soln NEB PRN ×2 (09:57→14:18)
[2021-03-21] MEDS: cefTRIAXone 2 GM in Sodium Chloride 0.9% 100 ML IV SCH (12:32)
[2021-03-22] MEDS: Albuterol/Ipratropium 3.0-0.5 MG/3 ML Neb Soln NEB PRN ×3 (06:08→16:50)
--- NOTE | 2021-03-22 07:31 | PCM.PN ---
- General Info Date of Service: 03/22/21 Admission Dx/Problem (Free Text): Admission Diagnosis/Problem Admission Diagnosis/Problem acute respiratory failure associated with COVID-19 pneumonia and pulmonary emboli. Functional Status: Reports: Pain Controlled, Tolerating Diet, Ambulating, Urinating, Incentive Spirometry, Other (Acapella ). Denies: New Symptoms - Review of Systems General: Reports: No Symptoms. Denies: Fever, Weakness, Fatigue, Malaise, Chills HEENT: Reports: No Symptoms. Denies: Headaches, Sore Throat Pulmonary: Reports: Shortness of Breath, Cough, Sputum. Denies: Pleuritic Chest Pain, Wheezing Cardiovascular: Reports: No Symptoms, Dyspnea on Exertion. Denies: Chest Pain, Palpitations, Edema Gastrointestinal: Reports: No Symptoms. Denies: Abdominal Pain, Constipation, Diarrhea, Nausea, Vomiting Genitourinary: Reports: No Symptoms. Denies: Pain Musculoskeletal: Reports: No Symptoms Skin: Reports: No Symptoms. Denies: Cyanosis Neurological: Reports: No Symptoms. Denies: Confusion, Dizziness, Headache, Numbness, Seizure, Syncope, Tingling, Difficulty Walking, Weakness, Gait Disturbance Psychiatric: Reports: No Symptoms - Patient Data Vitals - Most Recent: Last Vital Signs Temp 97.9 F 03/22/21 01:54 Pulse 65 03/22/21 01:54 Resp 18 03/22/21 01:54 BP 108/68 03/22/21 01:54 Pulse Ox 96 03/22/21 06:08 Weight - Most Recent: 190 lb 3 oz I&O - Last 24 Hours: Intake & Output 03/21/21 03/22/21 03/22/21 22:59 06:59 14:59 Intake Total 2030 1500 Output Total 1901 1650 Balance 129 -150 Lab Results Last 24 Hours: Laboratory Results - last 24 hr 03/22/21 03/22/21 Range/Units 06:24 06:24 WBC 22.48 H (4.23-9.07) K/mm3 RBC 4.59 L (4.63-6.08) M/mm3 Hgb 13.7 (13.7-17.5) gm/dl Hct 40.4 (40.1-51.0) % MCV 88.0 (79.0-92.2) fl MCH 29.8 (25.7-32.2) pg MCHC 33.9 (32.2-35.5) g/dl RDW Std Deviation 43.5 (35.1-43.9) fL Plt Count 378 H (163-337) K/mm3 MPV 9.8 (9.4-12.3) fl Neut % (Auto) 73.3 H (34.0-67.9) % Lymph % (Auto) 9.2 L (21.8-53.1) % Elliott % (Auto) 11.8 (5.3-12.2) % Eos % (Auto) 0.3 L (0.8-7.0) Baso % (Auto) 0.2 (0.1-1.2) % Neut # (Auto) 16.47 H (1.78-5.38) K/mm3 Lymph # (Auto) 2.06 (1.32-3.57) K/mm3 Elliott # (Auto) 2.65 H (0.30-0.82) K/mm3 Eos # (Auto) 0.07 (0.04-0.54) K/mm3 Baso # (Auto) 0.05 (0.01-0.08) K/mm3 Manual Slide Review Normal smear Sodium 138 (136-145) mEq/L Potassium 4.5 (3.5-5.1) mEq/L Chloride 104 (98-107) mEq/L Carbon Dioxide 26 (21-32) mEq/L Anion Gap 12.5 (5-15) BUN 33 H (7-18) mg/dL Creatinine 1.0 (0.7-1.3) mg/dL Est Cr Clr Drug Dosing 84.36 mL/min Estimated GFR (MDRD) > 60 (>60) mL/min BUN/Creatinine Ratio 33.0 H (14-18) Glucose 101 H (70-99) mg/dL Calcium 8.2 L (8.5-10.1) mg/dL Magnesium 2.0 (1.8-2.4) mg/dL Total Bilirubin 0.4 (0.2-1.0) mg/dL AST 21 (15-37) U/L ALT 85 H (16-63) U/L Alkaline Phosphatase 56 (46-116) U/L C-Reactive Protein <0.2 (<1.0) mg/dL Total Protein 5.8 L (6.4-8.2) g/dl Albumin 2.5 L (3.4-5.0) g/dl Globulin 3.3 gm/dL Albumin/Globulin Ratio 0.8 L (1-2) Med Orders - Current: Current Medications Acetaminophen (Acetaminophen 325 Mg Tab) 650 mg PO Q4H PRN PRN Reason: Pain (Mild 1-3)/fever Albuterol (Albuterol 6.7 Gm Inhaler) 0 gm INH Q2H PRN PRN Reason: SOB/wheezing Albuterol/Ipratropium (Albuterol/Ipratropium 3.0-0.5 Mg/3 Ml Neb Soln) 3 ml NEB Q4H PRN PRN Reason: Shortness Of Breath/wheezing Last Admin: 03/22/21 06:08 Dose: 3 ml Documented by: Apixaban (Apixaban 5 Mg Tab) 10 mg PO BID [facility] Stop: 03/22/21 09:01 Last Admin: 03/21/21 20:19 Dose: 10 mg Documented by: Apixaban (Apixaban 5 Mg Tab) 5 mg PO BID [facility] Baricitinib (Baricitinib 2 Mg Tab) 4 mg PO DAILY [facility] Stop: 04/01/21 09:01 Last Admin: 03/21/21 08:46 Dose: 4 mg Documented by: Cholecalciferol (Cholecalciferol (Vitamin D3) 5,000 Unit Cap) 5,000 unit PO DAILY [facility] Last Admin: 03/21/21 08:46 Dose: 5,000 unit Documented by: Dexamethasone (Dexamethasone 6 Mg Tablet) 6 mg PO DAILY [facility] Stop: 03/24/21 09:01 Docusate Sodium (Docusate Sodium 100 Mg Cap) 100 mg PO BID PRN PRN Reason: Constipation Ceftriaxone Sodium 2 gm/ (Sodium Chloride) 100 mls @ 200 mls/hr IV Q24H [facility] Stop: 03/22/21 13:59 Last Admin: 03/21/21 12:32 Dose: 200 mls/hr Documented by: Lisinopril (Lisinopril 20 Mg Tab) 20 mg PO DAILY [facility] Last Admin: 03/21/21 08:46 Dose: 20 mg Documented by: Ondansetron HCl (Ondansetron 4 Mg Tab.Dis) 4 mg PO Q4H PRN PRN Reason: nausea, able to take PO Oxycodone HCl (Oxycodone 5 Mg Tab) 5 mg PO Q4H PRN PRN Reason: Pain (moderate 4-6) Sodium Chloride (Sodium Chloride 0.9% 10 Ml Syringe) 10 ml FLUSH ASDIRECTED PRN PRN Reason: Keep Vein Open Last Admin: 03/15/21 15:53 Dose: 10 ml Documented by: Sodium Chloride (Sodium Chloride 0.65% Nasal [place] 45 Ml Bottle) 1 ml JOYCE Q1H PRN PRN Reason: nasal congestion Last Admin: 03/19/21 18:17 Dose: 1 spray Documented by: Temazepam (Temazepam 15 Mg Cap) 15 mg PO BEDTIME PRN PRN Reason: Sleep Zinc Sulfate (Zinc Sulfate 220 Mg Cap) 220 mg PO DAILY [facility] Last Admin: 03/21/21 08:46 Dose: 220 mg Documented by: Discontinued Medications Acetaminophen (Acetaminophen 325 Mg Tab) 975 mg PO Q4H PRN PRN Reason: Pain/Fever Apixaban (Apixaban 5 Mg Tab) 10 mg PO ONETIME ONE Stop: 03/15/21 17:26 Last Admin: 03/15/21 17:40 Dose: 10 mg Documented by: Apixaban (Apixaban 5 Mg Tab) 5 mg PO DAILY [facility] Dexamethasone (Dexamethasone 4 Mg/Ml Sdv) 6 mg IVPUSH ONETIME ONE Stop: 03/15/21 16:43 Last Admin: 03/15/21 17:26 Dose: 6 mg Documented by: Dexamethasone (Dexamethasone 4 Mg/Ml 5 Ml Mdv) 12 mg IV Q24H [facility] Last Admin: 03/18/21 17:34 Dose: 12 mg Documented by: Dexamethasone (Dexamethasone 6 Mg Tablet) 6 mg PO BID [facility] Last Admin: 03/21/21 08:46 Dose: 6 mg Documented by: Dexamethasone (Dexamethasone 6 Mg Tablet) 6 mg PO ONETIME ONE Stop: 03/19/21 11:31 Last Admin: 03/19/21 11:32 Dose: 6 mg Documented by: Hydrochlorothiazide (Hydrochlorothiazide 25 Mg Tab) 25 mg PO DAILY [facility] Last Admin: 03/20/21 08:02 Dose: 25 mg Documented by: Sodium Chloride (Normal Saline) 1,000 mls @ 1,000 mls/hr IV .BOLUS [facility] Last Admin: 03/15/21 15:53 Dose: 1,000 mls/hr Documented by: Remdesivir 200 mg/ Sodium (Chloride) 250 mls @ 250 mls/hr IV ONETIME ONE Stop: 03/15/21 16:43 Last Admin: 03/15/21 17:26 Dose: 250 mls/hr Documented by: Remdesivir 100 mg/ Sodium (Chloride) 250 mls @ 250 mls/hr IV Q24H [facility] Stop: 03/19/21 17:01 Last Admin: 03/19/21 16:27 Dose: 250 mls/hr Documented by: Azithromycin 500 mg/ Sodium (Chloride) 250 mls @ 250 mls/hr IV Q24H [facility] Stop: 03/20/21 13:29 Last Admin: 03/20/21 11:57 Dose: 250 mls/hr Documented by: Morphine Sulfate (Morphine 2 Mg/Ml Syringe) 2 mg IVPUSH Q2H PRN PRN Reason: Pain (severe 7-10) Stop: 03/17/21 06:45 Ondansetron HCl (Ondansetron 4 Mg/2 Ml Sdv) 4 mg IVPUSH ONETIME ONE Stop: 03/15/21 15:05 Last Admin: 03/15/21 15:53 Dose: 4 mg Documented by: - Exam Quality Assessment: Supplemental Oxygen (5L via oxy mask), DVT Prophylaxis. No: Urine Catheter General: Alert, Oriented, Cooperative, No Acute Distress HEENT: Pupils Equal, Pupils Reactive, Mucous Membr. Moist/[place] Neck: Supple, Trachea Midline Lungs: Normal Respiratory Effort, Decreased Breath Sounds, Crackles Cardiovascular: Regular Rate, Regular Rhythm GI/Abdominal Exam: Normal Bowel Sounds, Soft, Non-Tender, No Distention (Male) Exam: Deferred Back Exam: Normal Inspection, Full Range of Motion Extremities: Normal Inspection, Normal Range of Motion, Non-Tender, No Pedal Edema, Normal Capillary Refill Skin: Warm, Dry, Intact Neurological: No New Focal Deficit Psy/Mental Status: Alert, Normal Affect, Normal Mood - Patient Data Lab Results Last 24 hrs: Laboratory Results - last 24 hr 03/22/21 03/22/21 Range/Units 06:24 06:24 WBC 22.48 H (4.23-9.07) K/mm3 RBC 4.59 L (4.63-6.08) M/mm3 Hgb 13.7 (13.7-17.5) gm/dl Hct 40.4 (40.1-51.0) % MCV 88.0 (79.0-92.2) fl MCH 29.8 (25.7-32.2) pg MCHC 33.9 (32.2-35.5) g/dl RDW Std Deviation 43.5 (35.1-43.9) fL Plt Count 378 H (163-337) K/mm3 MPV 9.8 (9.4-12.3) fl Neut % (Auto) 73.3 H (34.0-67.9) % Lymph % (Auto) 9.2 L (21.8-53.1) % Elliott % (Auto) 11.8 (5.3-12.2) % Eos % (Auto) 0.3 L (0.8-7.0) Baso % (Auto) 0.2 (0.1-1.2) % Neut # (Auto) 16.47 H (1.78-5.38) K/mm3 Lymph # (Auto) 2.06 (1.32-3.57) K/mm3 Elliott # (Auto) 2.65 H (0.30-0.82) K/mm3 Eos # (Auto) 0.07 (0.04-0.54) K/mm3 Baso # (Auto) 0.05 (0.01-0.08) K/mm3 Manual Slide Review Normal smear Sodium 138 (136-145) mEq/L Potassium 4.5 (3.5-5.1) mEq/L Chloride 104 (98-107) mEq/L Carbon Dioxide 26 (21-32) mEq/L Anion Gap 12.5 (5-15) BUN 33 H (7-18) mg/dL Creatinine 1.0 (0.7-1.3) mg/dL Est Cr Clr Drug Dosing 84.36 mL/min Estimated GFR (MDRD) > 60 (>60) mL/min BUN/Creatinine Ratio 33.0 H (14-18) Glucose 101 H (70-99) mg/dL Calcium 8.2 L (8.5-10.1) mg/dL Magnesium 2.0 (1.8-2.4) mg/dL Total Bilirubin 0.4 (0.2-1.0) mg/dL AST 21 (15-37) U/L ALT 85 H (16-63) U/L Alkaline Phosphatase 56 (46-116) U/L C-Reactive Protein <0.2 (<1.0) mg/dL Total Protein 5.8 L (6.4-8.2) g/dl Albumin 2.5 L (3.4-5.0) g/dl Globulin 3.3 gm/dL Albumin/Globulin Ratio 0.8 L (1-2) Result Diagrams: 03/22/21 06:24 03/22/21 06:24 Sepsis Event Note - Evaluation Sepsis Screening Result: No Definite Risk - Focused Exam Vital Signs: Vital Signs Temp Pulse Resp BP Pulse Ox Pulse Ox 03/22/21 06:08 96 03/22/21 01:54 97.9 F 65 18 108/68 95 03/21/21 19:54 97.9 F 73 16 113/82 95 - Problem List & Annotations (1) Acute respiratory failure due to COVID-19 SNOMED Code(s): 715063628 Code(s): U07.1 - COVID-19; J96.00 - ACUTE RESPIRATORY FAILURE, UNSP W HYPOXIA OR HYPERCAPNIA Status: Acute Priority: High Current Visit: Yes (2) COVID-19 SNOMED Code(s): 843475596 Code(s): U07.1 - COVID-19 Status: Acute Current Visit: Yes (3) Hypoxia SNOMED Code(s): 028765423 Code(s): R09.02 - HYPOXEMIA Status: Acute Current Visit: Yes (4) Left ureter dilated SNOMED Code(s): 47456085 Code(s): N28.82 - MEGALOURETER Status: Acute Current Visit: Yes (5) Pneumonia due to COVID-19 virus SNOMED Code(s): 232168509370851401 Code(s): U07.1 - COVID-19; J12.82 - PNEUMONIA DUE TO CORONAVIRUS DISEASE 2019 Status: Acute Priority: High Current Visit: Yes (6) Pulmonary emboli SNOMED Code(s): 00376870 Code(s): I26.99 - OTHER PULMONARY EMBOLISM WITHOUT ACUTE COR PULMONALE Status: Acute Priority: High Current Visit: Yes Qualifiers: Pulmonary embolism type: multiple subsegmental (without acute cor pulmonale) Qualified Code(s): I26.94 - Multiple subsegmental pulmonary emboli without acute cor pulmonale (7) Hypertension SNOMED Code(s): 79561862 Code(s): I10 - ESSENTIAL (PRIMARY) HYPERTENSION Status: Chronic Priority: Medium Current Visit: Yes Qualifiers: Hypertension type: primary hypertension Qualified Code(s): I10 - Essential (primary) hypertension (8) Vitamin D deficiency SNOMED Code(s): 25168333 Code(s): E55.9 - VITAMIN D DEFICIENCY, UNSPECIFIED Status: Acute Priority: Medium Current Visit: Yes - Problem List Review Problem List Initiated/Reviewed/Updated: Yes - My Orders Last 24 Hours: My Active Orders 03/22/21 09:00 dexAMETHasone 6 mg PO DAILY - Assessment Assessment:: The patient is a 55-year-old gentleman who was admitted yesterday secondary to acute respiratory failure. The patient's oxygen will continue and continue to be tapered to keep his saturations around 92%. Thus far he has remained on high flow oxygen. The patient will continue the remdesivir 100 mg IV daily for the next 3 days. He is also on dexamethasone. Nebulized breathing treatments will continue. He is to have his diet as tolerated. Because of the pulmonary emboli the patient is currently anticoagulated on Eliquis. He has been encouraged to ambulate in the room. The patient's vital signs will be monitored and if necessary his antihypertensives will be adjusted. - Plan Plan:: 03/16/2021 The patient is a 55-year-old gentleman who had been admitted to acute hospitalization due to COVID-19 pneumonia and bilateral pulmonary emboli. The patient has been started on loading dose of Eliquis at 10 mg p.o. twice daily. The patient will have oxygen to keep his saturations at and around 92%. Patient had 1 200 mg dose of remdesivir in the emergency department and he will have ordered 4 doses of 100 mg IV remdesivir. Patient also has been placed on 6 mg p.o. daily of dexamethasone. The patient has been restarted on his antihype rtensive medications and his vital signs will be monitored and his medications adjusted appropriately. The patient has been encouraged to ambulate. He will have regular diet as tolerated. Repeat laboratory studies have been ordered for the morning. The patient should be appropriate for discharge after completion of the remdesivir. 03/17/2021 The patient is a 55-year-old gentleman who was admitted yesterday secondary to acute respiratory failure. The patient's oxygen will continue and continue to be tapered to keep his saturations around 92%. Thus far he has remained on high flow oxygen. The patient will continue the remdesivir 100 mg IV daily for the next 3 days. He is also on dexamethasone. Nebulized breathing treatments will continue. He is to have his diet as tolerated. Because of the pulmonary emboli the patient is currently anticoagulated on Eliquis. He has been encouraged to ambulate in the room. The patient's vital signs will be monitored and if necessary his antihypertensives will be adjusted. 03/18/2021 55-year-old male admitted due to acute respiratory failure secondary to hypoxia and pulmonary emboli. He continues on remdesivir and dexamethasone. He was also placed on Eliquis 10 mg twice daily which should continue for 7 days and then transition to 5 mg twice daily. He is currently utilizing oxy mask at 12 L as he reports his nose is very congested and plugged. We did order saline nasal mist. In reviewing prior laboratory findings it appears patient had toxic granulation on admission and also a leukocytosis of 13. This has been increasing, which may be due to steroid with the patient may have an underlying infectious process. Because of this we will order a procalcitonin and start azithromycin and Rocephin. Labs today show WBC of 15.64. Hemoglobin is 12.9. Platelets are 297,000. Neutrophils are elevated 80.7%. D-dimer is greater than 35.2. Sodium is 136. Potassium 4.3. Chloride 101. Carbon dioxide 28. Anion gap 11.3. BUN is 26. Creatinine 1.0. GFR greater than 60. Glucose is 136. Calcium 8.2. Magnesium 1.9. AST 63, total bilirubin 0.3. ALT 134. Alkaline phosphatase 50. CRP is 5.8. Protein 5.8. Albumin 2.3. Given dilated ureter found on CT scan of the abdomen pelvis we will recommend urology follow-up. We will otherwise continue on current treatment plan. We will add zinc supplementation and check a vitamin D level. Unknown length of stay given severity of symptoms. Length of stay greater than 96 hours due to need for continued treatment. 03/19/2021 55-year-old male admitted to the floor with acute respiratory failure secondary to COVID-19 and pulmonary emboli. He continues on remdesivir and dexamethasone, as well as Eliquis 10 mg twice a day is currently on oxygen mask at 9 L. We discussed baricitinib and he is in agreement to starting this. We will continue azithromycin and Rocephin. He states overall he feels about the same as yesterday but he has been able to sit up today. Labs today show WBC of 12.95. Hemoglobin 13.4. Platelet 292,000. Neutrophils are elevated 78.7%. Sodium is 135. Potassium 4.7. Chloride 101. Carbon oxide 24. Anion gap is 14.7. BUN is 24. Creatinine 0.9. GFR greater than 60. Glucose 135. Calcium 8.1. Phosphorus 3.9. Magnesium 2.0. Bilirubin 0.4. AST is 55, ALT 149, alkaline phosphatase 47. CRP is 3.0. Protein is 6.1. Albumin is 2.4. Vitamin D is 29.5 and will be supplemented. Procalcitonin 0.08. Unknown length of stay pending improvement of oxygen saturations. I spoke with Nancy to provide information about baricitinib. I offered the "fax sheet for patients and parents/caregivers, for baricitinib" to read and review. I stated that therapy has been approved by an emergency use authorization process and has not fully been FDA reviewed or approved. I shared potential risks from the therapy including increased risk for serious infections, anaphy laxis, and reaction to medication. I discussed there are other potential treatment options that are currently not FDA approved to treat COVID-19. Offered opportunity to ask questions and all questions were answered. Nancy voiced understanding and agreed to proceed with treatment. Length of stay greater than 96 hours due to need for continued Covid treatment. 03/20/2021 This is a 55-year-old male admitted to the floor with acute respiratory failure secondary to COVID-19 and pulmonary emboli. He continues on Eliquis for his PEs. He is receiving azithromycin and Rocephin and will have his last dose of azithromycin today. He is receiving twice daily dexamethasone and baricitinib. He has completed remdesivir. He remains on 7 L of oxygen via oxygen mask. He has had overall poor motivation and we have been working with this. We continue to encourage incentive spirometry and Acapella use along with proning. He states that his nose is still somewhat congested but is improving. Labs today show WBC of 14.21. Hemoglobin is 13.9. Platelets are 341,000. Neutrophils are elevated 74.7. Smear was normal. Sodium is down to 133 and we will keep monitoring this. Patient was on HCTZ and lisinopril combination at home. This is likely driving down his sodium and we will discontinue his HCTZ as his blood pressure has been very good while here. Potassium is 4.7. Chloride 100. Carbon dioxide 25. BUN is 25. Creatinine 1.0. GFR greater than 60. Glucose 1 62. Calcium 8.7. Magnesium 2.0. Total bilirubin 0.3. AST is 35, ALT 137, alkaline phosphatase 59. CRP is 1.7. Protein is 6.2. Albumin is up to 2.5. We will continue current treatment plan and encourage I-S, Acapella, and proning. Unknown length of stay due to severity of symptoms. 03/21/2021 55-year-old male admitted for treatment of COVID-19 pneumonia and PE. Continues on Eliquis and will transition to 5 mg twice daily dosing tomorrow. He completed azithromycin and remains on Rocephin. He is on twice daily dexamethasone and baricitinib for his COVID-19 pneumonia. Continues to utilize incentive spirometry and Acapella as well as prone. We discussed plan of care and duration of stay. He is down to 5 L via oxy mask. WBC was 23.46. Hemoglobin 14.8. Platelet 365,000. Neutrophils are elevated at 77.7. Sodium is 134. Potassium 4.9. Chloride 100. Carbon dioxide 23. Anion gap is 15.9. BUN is 30. Creatinine 1.1. GFR greater than 60. Glucose is 169. Calcium is 8.8. Magnesium is 2.0. AST is 26, ALT 118, alkaline phosphatase 75. CRP 0.8. Albumin is 2.7. We will decrease his steroid back down to 6 mg daily as his inflammatory markers have responded appropriately. Unknown length of stay due to severity of symptoms. 03/22/2021 55-year-old male admitted to the floor for COVID-19 pneumonia and pulmonary embolism. He has started on 5 mg twice daily dosing for his Eliquis today. He will receive his last dose of Rocephin today and has completed his azithromycin. We have decreased him to once daily dexamethasone as his inflammatory markers have returned to normal. He remains on baricitinib. He is utilizing his a Acapella and incentive spirometry. He is proning. He remains on 5 L via oxy mask. Labs today show WBC of 22.48 which is likely steroid related. Hemoglobin is 13.7. Platelet 378,000. Neutrophils are elevated at 73.3. Smear is normal. Sodium is 138. Potassium is 4.5. Chloride is 104. Anion gap is 12.5. BUN is 33. Creatinine 1.0. GFR greater than 60. Glucose is 101. Calcium 8.2. Magnesium is 2.0. Total bilirubin 0.4. AST is 21, ALT 85, alkaline phosphatase 56. CRP is less than 0.2. Protein is 5.8. Albumin 2.5. He remains on vitamin D supplementation. Case management has been working on getting patient a urology consultation for his abnormal CT scan findings. We will continue to work on weaning patient of oxygen. Goal saturations would be 2 to 3L via nasal cannula prior to discharge. Unknown length of stay due to severity of symptoms.
[2021-03-22] MEDS: Apixaban 5 MG Tab PO SCH ×2 (08:04→20:40)
[2021-03-22] MEDS: Cholecalciferol (Vitamin D3) 5,000 UNIT Cap PO SCH (08:05)
[2021-03-22] MEDS: Zinc Sulfate 220 MG Cap PO SCH (08:05)
[2021-03-22] MEDS: Dexamethasone 6 MG TABLET PO SCH (08:05)
[2021-03-22] MEDS: Lisinopril 20 MG Tab PO SCH (08:05)
[2021-03-22] MEDS: cefTRIAXone 2 GM in Sodium Chloride 0.9% 100 ML IV SCH (12:34)
[2021-03-23] MEDS: Albuterol/Ipratropium 3.0-0.5 MG/3 ML Neb Soln NEB PRN ×2 (06:43→11:35)
--- NOTE | 2021-03-23 07:12 | CR ---
Chest: Frontal view of the chest was obtained. Comparison: Prior chest x-ray and CT chest of 03/15/21. Heart size and mediastinum appear within normal limits. Patchy areas of increased density are seen on both sides of the chest. Findings are minimally improved from prior chest x-ray. Bony structures show nothing acute. Impression: 1. Minimal improvement of previous COVID pneumonia. Diagnostic code #3
[2021-03-23] MEDS: Apixaban 5 MG Tab PO SCH ×2 (09:27→20:43)
[2021-03-23] MEDS: Dexamethasone 6 MG TABLET PO SCH (09:27)
[2021-03-23] MEDS: Cholecalciferol (Vitamin D3) 5,000 UNIT Cap PO SCH (09:28)
[2021-03-23] MEDS: Zinc Sulfate 220 MG Cap PO SCH (09:29)
[2021-03-23] MEDS: Lisinopril 20 MG Tab PO SCH (09:30)
--- NOTE | 2021-03-23 13:31 | PCM.PN ---
- General Info Date of Service: 03/23/21 Admission Dx/Problem (Free Text): Admission Diagnosis/Problem Admission Diagnosis/Problem acute respiratory failure associated with COVID-19 pneumonia and pulmonary emboli. Subjective Update: Patient continues on oxygen mask he has his nose gets plugged when he uses a nasal cannula. Patient states he is concerned about going home because of his being fragile and not wanting to pass it to her. He will be taking care of himself when he does go home. He states he may be able to go home tomorrow. Functional Status: Reports: Pain Controlled - Review of Systems General: Reports: No Symptoms HEENT: Reports: No Symptoms Pulmonary: Reports: Shortness of Breath, Cough Cardiovascular: Reports: No Symptoms Gastrointestinal: Reports: No Symptoms Musculoskeletal: Reports: No Symptoms - Patient Data Vitals - Most Recent: Last Vital Signs Temp 98.1 F 03/23/21 03:07 Pulse 66 03/23/21 03:07 Resp 14 03/23/21 03:07 BP 104/60 03/23/21 09:30 Pulse Ox 92 L 03/23/21 11:35 Weight - Most Recent: 189 lb 11.2 oz I&O - Last 24 Hours: Intake & Output 03/22/21 03/23/21 03/23/21 22:59 06:59 14:59 Intake Total 1460 600 Output Total 1200 950 Balance 260 -350 Med Orders - Current: Current Medications Acetaminophen (Acetaminophen 325 Mg Tab) 650 mg PO Q4H PRN PRN Reason: Pain (Mild 1-3)/fever Albuterol (Albuterol 6.7 Gm Inhaler) 0 gm INH Q2H PRN PRN Reason: SOB/wheezing Albuterol/Ipratropium (Albuterol/Ipratropium 3.0-0.5 Mg/3 Ml Neb Soln) 3 ml NEB Q4H PRN PRN Reason: Shortness Of Breath/wheezing Last Admin: 03/23/21 11:35 Dose: 3 ml Documented by: Apixaban (Apixaban 5 Mg Tab) 5 mg PO BID [facility] Last Admin: 03/23/21 09:27 Dose: 5 mg Documented by: Baricitinib (Baricitinib 2 Mg Tab) 4 mg PO DAILY [facility] Stop: 04/01/21 09:01 Last Admin: 03/23/21 09:28 Dose: 4 mg Documented by: Cholecalciferol (Cholecalciferol (Vitamin D3) 5,000 Unit Cap) 5,000 unit PO D AILY [facility] Last Admin: 03/23/21 09:28 Dose: 5,000 unit Documented by: Dexamethasone (Dexamethasone 6 Mg Tablet) 6 mg PO DAILY [facility] Stop: 03/24/21 09:01 Last Admin: 03/23/21 09:27 Dose: 6 mg Documented by: Docusate Sodium (Docusate Sodium 100 Mg Cap) 100 mg PO BID PRN PRN Reason: Constipation Lisinopril (Lisinopril 20 Mg Tab) 20 mg PO DAILY [facility] Last Admin: 03/23/21 09:30 Dose: 20 mg Documented by: Ondansetron HCl (Ondansetron 4 Mg Tab.Dis) 4 mg PO Q4H PRN PRN Reason: nausea, able to take PO Oxycodone HCl (Oxycodone 5 Mg Tab) 5 mg PO Q4H PRN PRN Reason: Pain (moderate 4-6) Sodium Chloride (Sodium Chloride 0.9% 10 Ml Syringe) 10 ml FLUSH ASDIRECTED PRN PRN Reason: Keep Vein Open Last Admin: 03/15/21 15:53 Dose: 10 ml Documented by: Sodium Chloride (Sodium Chloride 0.65% Nasal [place] 45 Ml Bottle) 1 ml JOYCE Q1H PRN PRN Reason: nasal congestion Last Admin: 03/19/21 18:17 Dose: 1 spray Documented by: Temazepam (Temazepam 15 Mg Cap) 15 mg PO BEDTIME PRN PRN Reason: Sleep Zinc Sulfate (Zinc Sulfate 220 Mg Cap) 220 mg PO DAILY [facility] Last Admin: 03/23/21 09:29 Dose: 220 mg Documented by: Discontinued Medications Acetaminophen (Acetaminophen 325 Mg Tab) 975 mg PO Q4H PRN PRN Reason: Pain/Fever Apixaban (Apixaban 5 Mg Tab) 10 mg PO ONETIME ONE Stop: 03/15/21 17:26 Last Admin: 03/15/21 17:40 Dose: 10 mg Documented by: Apixaban (Apixaban 5 Mg Tab) 5 mg PO DAILY [facility] Apixaban (Apixaban 5 Mg Tab) 10 mg PO BID [facility] Stop: 03/22/21 09:01 Last Admin: 03/22/21 08:04 Dose: 10 mg Documented by: Dexamethasone (Dexamethasone 4 Mg/Ml Sdv) 6 mg IVPUSH ONETIME ONE Stop: 03/15/21 16:43 Last Admin: 03/15/21 17:26 Dose: 6 mg Documented by: Dexamethasone (Dexamethasone 4 Mg/Ml 5 Ml Mdv) 12 mg IV Q24H [facility] Last Admin: 03/18/21 17:34 Dose: 12 mg Documented by: Dexamethasone (Dexamethasone 6 Mg Tablet) 6 mg PO BID [facility] Last Admin: 03/21/21 08:46 Dose: 6 mg Documented by: Dexamethasone (Dexamethasone 6 Mg Tablet) 6 mg PO ONETIME ONE Stop: 03/19/21 11:31 Last Admin: 03/19/21 11:32 Dose: 6 mg Documented by: Hydrochlorothiazide (Hydrochlorothiazide 25 Mg Tab) 25 mg PO DAILY [facility] Last Admin: 03/20/21 08:02 Dose: 25 mg Documented by: Sodium Chloride (Normal Saline) 1,000 mls @ 1,000 mls/hr IV .BOLUS [facility] Last Admin: 03/15/21 15:53 Dose: 1,000 mls/hr Documented by: Remdesivir 200 mg/ Sodium (Chloride) 250 mls @ 250 mls/hr IV ONETIME ONE Stop: 03/15/21 16:43 Last Admin: 03/15/21 17:26 Dose: 250 mls/hr Documented by: Remdesivir 100 mg/ Sodium (Chloride) 250 mls @ 250 mls/hr IV Q24H [facility] Stop: 03/19/21 17:01 Last Admin: 03/19/21 16:27 Dose: 250 mls/hr Documented by: Azithromycin 500 mg/ Sodium (Chloride) 250 mls @ 250 mls/hr IV Q24H [facility] Stop: 03/20/21 13:29 Last Admin: 03/20/21 11:57 Dose: 250 mls/hr Documented by: Ceftriaxone Sodium 2 gm/ (Sodium Chloride) 100 mls @ 200 mls/hr IV Q24H [facility] Stop: 03/22/21 13:59 Last Admin: 03/22/21 12:34 Dose: 200 mls/hr Documented by: Morphine Sulfate (Morphine 2 Mg/Ml Syringe) 2 mg IVPUSH Q2H PRN PRN Reason: Pain (severe 7-10) Stop: 03/17/21 06:45 Ondansetron HCl (Ondansetron 4 Mg/2 Ml Sdv) 4 mg IVPUSH ONETIME ONE Stop: 03/15/21 15:05 Last Admin: 03/15/21 15:53 Dose: 4 mg Documented by: - Exam Quality Assessment: Supplemental Oxygen General: Alert, Oriented HEENT: Pupils Equal, Mucous Membr. Moist/[place] Neck: Supple Lungs: Normal Respiratory Effort, Crackles Cardiovascular: Regular Rate, Regular Rhythm GI/Abdominal Exam: Normal Bowel Sounds, Soft, Non-Tender, No Organomegaly, No Distention, No Abnormal Bruit, No Mass Extremities: Normal Inspection, Normal Range of Motion, Non-Tender, No Pedal Edema, Normal Capillary Refill - Patient Data Result Diagrams: 03/22/21 06:24 03/22/21 06:24 Sepsis Event Note - Evaluation Sepsis Screening Result: No Definite Risk - Focused Exam Vital Signs: Vital Signs Temp Pulse Resp BP Pulse Ox Pulse Ox Pulse Ox 03/23/21 11:35 92 L 03/23/21 09:30 104/60 03/23/21 09:13 88 L 03/23/21 09:12 92 L 03/23/21 06:46 92 L 03/23/21 03:07 98.1 F 66 14 109/77 95 - Problem List & Annotations (1) Acute respiratory failure due to COVID-19 SNOMED Code(s): 449755741 Code(s): U07.1 - COVID-19; J96.00 - ACUTE RESPIRATORY FAILURE, UNSP W HYPOXIA OR HYPERCAPNIA Status: Acute Priority: High Current Visit: Yes (2) COVID-19 SNOMED Code(s): 491095513 Code(s): U07.1 - COVID-19 Status: Acute Current Visit: Yes (3) Hypoxia SNOMED Code(s): 584360544 Code(s): R09.02 - HYPOXEMIA Status: Acute Current Visit: Yes (4) Pneumonia due to COVID-19 virus SNOMED Code(s): 491527430129427204 Code(s): U07.1 - COVID-19; J12.82 - PNEUMONIA DUE TO CORONAVIRUS DISEASE 2019 Status: Acute Priority: High Current Visit: Yes - Problem List Review Problem List Initiated/Reviewed/Updated: Yes - My Orders Last 24 Hours: My Active Orders 03/24/21 05:11 C-REACTIVE PROTEIN [CHEM] AM CBC WITH AUTO DIFF [HEME] AM CMP [COMPREHENSIVE METABOLIC PN,CMP] [CHEM] AM MAGNESIUM [CHEM] AM PHOSPHORUS [CHEM] AM 03/25/21 05:11 C-REACTIVE PROTEIN [CHEM] AM CBC WITH AUTO DIFF [HEME] AM CMP [COMPREHENSIVE METABOLIC PN,CMP] [CHEM] AM MAGNESIUM [CHEM] AM PHOSPHORUS [CHEM] AM - Assessment Assessment:: The patient is a 55-year-old gentleman who was admitted yesterday secondary to acute respiratory failure. The patient's oxygen will continue and continue to be tapered to keep his saturations around 92%. Thus far he has remained on high flow oxygen. The patient will continue the remdesivir 100 mg IV daily for the next 3 days. He is also on dexamethasone. Nebulized breathing treatments will continue. He is to have his diet as tolerated. Because of the pulmonary emboli the patient is currently anticoagulated on Eliquis. He has been encouraged to ambulate in the room. The patient's vital signs will be monitored and if necessary his antihypertensives will be adjusted. - Plan Plan:: 03/16/2021 The patient is a 55-year-old gentleman who had been admitted to acute hospitalization due to COVID-19 pneumonia and bilateral pulmonary emboli. The patient has been started on loading dose of Eliquis at 10 mg p.o. twice daily. The patient will have oxygen to keep his saturations at and around 92%. Patient had 1 200 mg dose of remdesivir in the emergency department and he will have ordered 4 doses of 100 mg IV remdesivir. Patient also has been placed on 6 mg p.o. daily of dexamethasone. The patient has been restarted on his antihypertensive medications and his vital signs will be monitored and his medications adjusted appropriately. The patient has been encouraged to ambulate. He will have regular diet as tolerated. Repeat laboratory studies have been ordered for the morning. The patient should be appropriate for discharge after completion of the remdesivir. 03/17/2021 The patient is a 55-year-old gentleman who was admitted yesterday secondary to acute respiratory failure. The patient's oxygen will continue and continue to be tapered to keep his saturations around 92%. Thus far he has remained on high flow oxygen. The patient will continue the remdesivir 100 mg IV daily for the next 3 days. He is also on dexamethasone. Nebulized breathing treatments will continue. He is to have his diet as tolerated. Because of the pulmonary emboli the patient is currently anticoagulated on Eliquis. He has been encouraged to ambulate in the room. The patient's vital signs will be monitored and if necessary his antihypertensives will be adjusted. 03/18/2021 55-year-old male admitted due to acute respiratory failure secondary to hypoxia and pulmonary emboli. He continues on remdesivir and dexamethasone. He was also placed on Eliquis 10 mg twice daily which should continue for 7 days and then transition to 5 mg twice daily. He is currently utilizing oxy mask at 12 L as he reports his nose is very congested and plugged. We did order saline nasal mist. In reviewing prior laboratory findings it appears patient had toxic granulation on admission and also a leukocytosis of 13. This has been increasing, which may be due to steroid with the patient may have an underlying infectious process. Because of this we will order a procalcitonin and start azithromycin and Rocephin. Labs today show WBC of 15.64. Hemoglobin is 12.9. Platelets are 297,000. Neutrophils are elevated 80.7%. D-dimer is greater than 35.2. Sodium is 136. Potassium 4.3. Chloride 101. Carbon dioxide 28. Anion gap 11.3. BUN is 26. Creatinine 1.0. GFR greater than 60. Glucose is 136. Calcium 8.2. Magnesium 1.9. AST 63, total bilirubin 0.3. ALT 134. Alkaline phosphatase 50. CRP is 5.8. Protein 5.8. Albumin 2.3. Given dilated ureter found on CT scan of the abdomen pelvis we will recommend urology follow-up. We will otherwise continue on current treatment plan. We will add zinc suppl ementation and check a vitamin D level. Unknown length of stay given severity of symptoms. Length of stay greater than 96 hours due to need for continued treatment. 03/19/2021 55-year-old male admitted to the floor with acute respiratory failure secondary to COVID-19 and pulmonary emboli. He continues on remdesivir and dexamethasone, as well as Eliquis 10 mg twice a day is currently on oxygen mask at 9 L. We discussed baricitinib and he is in agreement to starting this. We will continue azithromycin and Rocephin. He states overall he feels about the same as ye sterday but he has been able to sit up today. Labs today show WBC of 12.95. Hemoglobin 13.4. Platelet 292,000. Neutrophils are elevated 78.7%. Sodium is 135. Potassium 4.7. Chloride 101. Carbon oxide 24. Anion gap is 14.7. BUN is 24. Creatinine 0.9. GFR greater than 60. Glucose 135. Calcium 8.1. Phosphorus 3.9. Magnesium 2.0. Bilirubin 0.4. AST is 55, ALT 149, alkaline phosphatase 47. CRP is 3.0. Protein is 6.1. Albumin is 2.4. Vitamin D is 29.5 and will be supplemented. Procalcitonin 0.08. Unknown length of stay pending improvement of oxygen saturations. I spoke with Nancy to provide information about baricitinib. I offered the "fax sheet for patients and parents/caregivers, for baricitinib" to read and review. I stated that therapy has been approved by an emergency use authorization process and has not fully been FDA reviewed or approved. I shared potential ri sks from the therapy including increased risk for serious infections, anaphylaxis, and reaction to medication. I discussed there are other potential treatment options that are currently not FDA approved to treat COVID-19. Offered opportunity to ask questions and all questions were answered. Nancy voiced understanding and agreed to proceed with treatment. Length of stay greater than 96 hours due to need for continued Covid treatment. 03/20/2021 This is a 55-year-old male admitted to the floor with acute respiratory failure secondary to COVID-19 and pulmonary emboli. He continues on Eliquis for his PEs. He is receiving azithromycin and Rocephin and will have his last dose of azithromycin today. He is receiving twice daily dexamethasone and baricitinib. He has completed remdesivir. He remains on 7 L of oxygen via oxygen mask. He has had overall poor motivation and we have been working with this. We continue to encourage incentive spirometry and Acapella use along with proning. He states that his nose is still somewhat congested but is improving. Labs today show WBC of 14.21. Hemoglobin is 13.9. Platelets are 341,000. Neutrophils are elevated 74.7. Smear was normal. Sodium is down to 133 and we will keep monitoring this. Patient was on HCTZ and lisinopril combination at home. This is likely driving down his sodium and we will discontinue his HCTZ as his blood pressure has been very good while here. Potassium is 4.7. Chloride 100. Carb on dioxide 25. BUN is 25. Creatinine 1.0. GFR greater than 60. Glucose 162. Calcium 8.7. Magnesium 2.0. Total bilirubin 0.3. AST is 35, ALT 137, alkaline phosphatase 59. CRP is 1.7. Protein is 6.2. Albumin is up to 2.5. We will continue current treatment plan and encourage I-S, Acapella, and proning. Unknown length of stay due to severity of symptoms. 03/21/2021 55-year-old male admitted for treatment of COVID-19 pneumonia and PE. Continues on Eliquis and will transition to 5 mg twice daily dosing tomorrow. He completed azithromycin and remains on Rocephin. He is on twice daily dexamethasone and baricitinib for his COVID-19 pneumonia. Continues to utilize incentive spirometry and Acapella as well as prone. We discussed plan of care and duration of stay. He is down to 5 L via oxy mask. WBC was 23.46. Hemoglobin 14.8. Platelet 365,000. Neutrophils are elevated at 77.7. Sodium is 134. Potassium 4.9. Chloride 100. Carbon dioxide 23. Anion gap is 15.9. BUN is 30. Creatinine 1.1. GFR greater than 60. Glucose is 169. Calcium is 8.8. Magnesium is 2.0. AST is 26, ALT 118, alkaline phosphatase 75. CRP 0.8. Albumin is 2.7. We will decrease his steroid back down to 6 mg daily as his inflammatory markers have responded appropriately. Unknown length of stay due to severity of symptoms. 03/22/2021 55-year-old male admitted to the floor for COVID-19 pneumonia and pulmonary embolism. He has started on 5 mg twice daily dosing for his Eliquis today. He will receive his last dose of Rocephin today and has completed his azithromycin. We have decreased him to once daily dexamethasone as his inflammatory markers have returned to normal. He remains on baricitinib. He is utilizing his a Acapella and incentive spirometry. He is proning. He remains on 5 L via oxy mask. Labs today show WBC of 22.48 which is likely steroid related. Hemoglobin is 13.7. Platelet 378,000. Neutrophils are elevated at 73.3. Smear is normal. Sodium is 138. Potassium is 4.5. Chloride is 104. Anion gap is 12.5. BUN is 33. Creatinine 1.0. GFR greater than 60. Glucose is 101. Calcium 8.2. Magnesium is 2.0. Total bilirubin 0.4. AST is 21, ALT 85, alkaline phosphatase 56. CRP is less than 0.2. Protein is 5.8. Albumin 2.5. He remains on vitamin D supplementation. Case management has been working on getting patient a urology consultation for his abnormal CT scan findings. We will continue to work on weaning patient of oxygen. Goal saturations would be 2 to 3L via nasal cannula prior to discharge. Unknown length of stay due to severity of symptoms. 03/23/2021 55-year-old male with COVID-19 pneumonia and PE with slight improvement on chest x-ray is stable on 4 L via Ventimask. Patient does get nasal congestion and saline has not improved symptoms. His oxygen saturations drop after a few minutes of having nasal cannula in place. No labs were done today. He is on once daily dexamethasone and continues on baricitinib. Patient is about ready to discharge on a Ventimask and go home for continued recovery. Patient will be reevaluated in the morning for discharge on oxygen at home.
[2021-03-23] MEDS: Fluticasone Propionate Nasal Spray 16 GM Bottle NASBOTH SCH (16:36)
[2021-03-24] MEDS: Lisinopril 20 MG Tab PO SCH (09:15)
[2021-03-24] MEDS: Dexamethasone 6 MG TABLET PO SCH (09:15)
[2021-03-24] MEDS: Fluticasone Propionate Nasal Spray 16 GM Bottle NASBOTH SCH (09:16)
[2021-03-24] MEDS: Zinc Sulfate 220 MG Cap PO SCH (09:16)
[2021-03-24] MEDS: Apixaban 5 MG Tab PO SCH (09:16)
[2021-03-24] MEDS: Cholecalciferol (Vitamin D3) 5,000 UNIT Cap PO SCH (09:16)
[2021-03-24] MEDS ORDERED: Oxymetazoline 0.05% Nasal Spray 30 ML Bottle NAS PRN (14:06)
--- NOTE | 2021-03-24 14:44 | PCM.DCSUM1 ---
Discharge Summary - Hospital Course HPI Initial Comments: - History of Present Illness Initial Comments - Free Text/Narative: The patient is a 55-year-old gentleman who had been brought to the emergency department via [facility] for shortness of breath and hypoxia. The patient was found to be positive for Covid 19 pneumonia. The patient says that his symptoms started 4 days ago. He did have oxygen saturations in the low 60s. The patient's main concern at this time is severe shortness of breath. Patient also reports fever and chills. He has had weakness. The patient had CT scan done in the emergency department which is shown bilateral pulmonary emboli. The patient otherwise has been healthy and has been taking medication for hypertension. Not using tobacco. Assessment/Plan Comment:: The patient is a 55-year-old gentleman who had been admitted to acute hospitalization due to COVID-19 pneumonia and bilateral pulmonary emboli. The patient has been started on loading dose of Eliquis at 10 mg p.o. twice daily. The patient will have oxygen to keep his saturations at and around 92%. Patient had 1 200 mg dose of remdesivir in the emergency department and he will have ordered 4 doses of 100 mg IV remdesivir. Patient also has been placed on 6 mg p.o. daily of dexamethasone. The patient has been restarted on his antihypertensive medications and his vital signs will be monitored and his medications adjusted appropriately. The patient has been encouraged to ambulate. He will have regular diet as tolerated. Repeat laboratory studies have been ordered for the morning. The patient should be appropriate for discha rge after completion of the remdesivir. - Mortality Measure Prognosis:: Good Diagnosis: Stroke: No - Discharge Data Discharge Date: 03/24/21 Discharge Disposition: Home, Self-Care 01 Condition: Good - Referral to Home Health Primary Care Physician: Ana M Goldstein NP - Discharge Diagnosis/Problem(s) (1) Acute respiratory failure due to COVID-19 SNOMED Code(s): 258613209 ICD Code: U07.1 - COVID-19; J96.00 - ACUTE RESPIRATORY FAILURE, UNSP W HYPOXIA OR HYPERCAPNIA Status: Acute Priority: High Current Visit: Yes (2) COVID-19 SNOMED Code(s): 254280063 ICD Code: U07.1 - COVID-19 Status: Acute Current Visit: Yes (3) Hypoxia SNOMED Code(s): 181734725 ICD Code: R09.02 - HYPOXEMIA Status: Acute Current Visit: Yes (4) Pneumonia due to COVID-19 virus SNOMED Code(s): 953141205212863649 ICD Code: U07.1 - COVID-19; J12.82 - PNEUMONIA DUE TO CORONAVIRUS DISEASE 2019 Status: Acute Priority: High Current Visit: Yes - Patient Summary/Data Consults: Consultations 03/18/21 10:38 Consult to Respiratory Therapy [Respiratory Care Assess and Treatment] [CONS] Routine 03/18/21 11:28 Consult to Tube Closing Machine Operator [CONS] Routine Hospital Course: 03/16/2021 The patient is a 55-year-old gentleman who had been admitted to acute hospitalization due to COVID-19 pneumonia and bilateral pulmonary emboli. The patient has been started on loading dose of Eliquis at 10 mg p.o. twice daily. The patient will have oxygen to keep his saturations at and around 92%. Patient had 1 200 mg dose of remdesivir in the emergency department and he will have ordered 4 doses of 100 mg IV remdesivir. Patient also has been placed on 6 mg p.o. daily of dexamethasone. The patient has been restarted on his antihypertensive medications and his vital signs will be monitored and his medications adjusted appropriately. The patient has been encouraged to ambulate. He will have regular diet as tolerated. Repeat laboratory studies have been ordered for the morning. The patient should be appropriate for discharge after completion of the remdesivir. 03/17/2021 The patient is a 55-year-old gentleman who was admitted yesterday secondary to acute respiratory failure. The patient's oxygen will continue and continue to be tapered to keep his saturations around 92%. Thus far he has remained on high flow oxygen. The patient will continue the remdesivir 100 mg IV daily for the next 3 days. He is also on dexamethasone. Nebulized breathing treatments will continue. He is to have his diet as tolerated. Because of the pulmonary emboli the patient is currently anticoagulated on Eliquis. He has been encouraged to ambulate in the room. The patient's vital signs will be monitored and if necessary his antihypertensives will be adjusted. 03/18/2021 55-year-old male admitted due to acute respiratory failure secondary to hypoxia and pulmonary emboli. He continues on remdesivir and dexamethasone. He was also placed on Eliquis 10 mg twice daily which should continue for 7 days and then transition to 5 mg twice daily. He is currently utilizing oxy mask at 12 L as he reports his nose is very congested and plugged. We did order saline nasal mist. In reviewing prior laboratory findings it appears patient had toxic granulation on admission and also a leukocytosis of 13. This has been increasing, which may be due to steroid with the patient may have an underlying infectious process. Because of this we will order a procalcitonin and start azithromycin and Rocephin. Labs today show WBC of 15.64. Hemoglobin is 12.9. Platelets are 297,000. Neutrophils are elevated 80.7%. D-dimer is greater than 35.2. Sodium is 136. Potassium 4.3. Chloride 101. Carbon dioxide 28. Anion gap 11.3. BUN is 26. Creatinine 1.0. GFR greater than 60. Glucose is 136. Calcium 8.2. Magnesium 1.9. AST 63, total bilirubin 0.3. ALT 134. Alkaline phosphatase 50. CRP is 5.8. Protein 5.8. Albumin 2.3. Given dilated ureter found on CT scan of the abdomen pelvis we will recommend urology follow-up. We will otherwise continue on current treatment plan. We will add zinc supplementation and check a vitamin D level. Unknown length of stay given severity of symptoms. Length of stay greater than 96 hours due to need for continued treatment. 03/19/2021 55-year-old male admitted to the floor with acute respiratory failure secondary to COVID-19 and pulmonary emboli. He continues on remdesivir and dexamethasone, as well as Eliquis 10 mg twice a day is currently on oxygen mask at 9 L. We discussed baricitinib and he is in agreement to starting this. We will continue azithromycin and Rocephin. He states overall he feels about the same as yesterday but he has been able to sit up today. Labs today show WBC of 12.95. Hemoglobin 13.4. Platelet 292,000. Neutrophils are elevated 78.7%. Sodium is 135. Potassium 4.7. Chloride 101. Carbon oxide 24. Anion gap is 14.7. BUN is 24. Creatinine 0.9. GFR greater than 60. Glucose 135. Calcium 8.1. Phosphorus 3.9. Magnesium 2.0. Bilirubin 0.4. AST is 55, ALT 149, alkaline phosphatase 47. CRP is 3.0. Protein is 6.1. Albumin is 2.4. Vitamin D is 29.5 and will be supplemented. Procalcitonin 0.08. Unknown length of stay pending improvement of oxygen saturations. I spoke with Nancy to provide information about baricitinib. I offered the "fax sheet for patients and parents/caregivers, for baricitinib" to read and review. I stated that therapy has been approved by an emergency use authorization process and has not fully been FDA reviewed or approved. I shared potential risks from the therapy including increased risk for serious infections, anaphylaxis, and reaction to medication. I discussed there are other potential treatment options that are currently not FDA approved to treat COVID-19. Offered opportunity to ask questions and all questions were answered. Nancy voiced understanding and agreed to proceed with treatment. Length of stay greater than 96 hours due to need for continued Covid treatment. 03/20/2021 This is a 55-year-old male admitted to the floor with acute respiratory failure secondary to COVID-19 and pulmonary emboli. He continues on Eliquis for his PEs. He is receiving azithromycin and Rocephin and will have his last dose of azithromycin today. He is receiving twice daily dexamethasone and baricitinib. He has completed remdesivir. He remains on 7 L of oxygen via oxygen mask. He has had overall poor motivation and we have been working with this. We continue to encourage incentive spirometry and Acapella use along with proning. He states that his nose is still somewhat congested but is improving. Labs today show WBC of 14.21. Hemoglobin is 13.9. Platelets are 341,000. Neutrophils are elevated 74.7. Smear was normal. Sodium is down to 133 and we will keep monitoring this. Patient was on HCTZ and lisinopril combination at home. This is likely driving down his sodium and we will discontinue his HCTZ as his blood pressure has been very good while here. Potassium is 4.7. Chloride 100. Carbon dioxide 25. BUN is 25. Creatinine 1.0. GFR greater than 60. Glucose 162. Calcium 8.7. Magnesium 2.0. Total bilirubin 0.3. AST is 35, ALT 137, alkaline phosphatase 59. CRP is 1.7. Protein is 6.2. Albumin is up to 2.5. We will continue current treatment plan and encourage I-S, Acapella, and proning. Unknown length of stay due to severity of symptoms. 03/21/2021 55-year-old male admitted for treatment of COVID-19 pneumonia and PE. Continues on Eliquis and will transition to 5 mg twice daily dosing tomorrow. He completed azithromycin and remains on Rocephin. He is on twice daily dexamethasone and baricitinib for his COVID-19 pneumonia. Continues to utilize incentive spirometry and Acapella as well as prone. We discussed plan of care and duration of stay. He is down to 5 L via oxy mask. WBC was 23.46. Hemoglobin 14.8. Platelet 365,000. Neutrophils are elevated at 77.7. Sodium is 134. Potassium 4.9. Chloride 100. Carbon dioxide 23. Anion gap is 15.9. BUN is 30. Creatinine 1.1. GFR greater than 60. Glucose is 169. Calcium is 8.8. Magnesium is 2.0. AST is 26, ALT 118, alkaline phosphatase 75. CRP 0.8. Albumin is 2.7. We will decrease his steroid back down to 6 mg daily as his inflammatory markers have responded appropriately. Unknown length of stay due to severity of symptoms. 03/22/2021 55-year-old male admitted to the floor for COVID-19 pneumonia and pulmonary embolism. He has started on 5 mg twice daily dosing for his Eliquis today. He will receive his last dose of Rocephin today and has completed his azithromycin. We have decreased him to once daily dexamethasone as his inflammatory markers have returned to normal. He remains on baricitinib. He is utilizing his a Acapella and incentive spirometry. He is proning. He remains on 5 L via oxy mask. Labs today show WBC of 22.48 which is likely steroid related. Hemoglobin is 13.7. Platelet 378,000. Neutrophils are elevated at 73.3. Smear is normal. Sodium is 138. Potassium is 4.5. Chloride is 104. Anion gap is 12.5. BUN is 33. Creatinine 1.0. GFR greater than 60. Glucose is 101. Calcium 8.2. Magnesium is 2.0. Total bilirubin 0.4. AST is 21, ALT 85, alkaline phosphatase 56. CRP is less than 0.2. Protein is 5.8. Albumin 2.5. He remains on vitamin D supplementation. Case management has been working on getting patient a urology consultation for his abnormal CT scan findings. We will continue to work on weaning patient of oxygen. Goal saturations would be 2 to 3L via nasal cannula prior to discharge. Unknown length of stay due to severity of symptoms. 03/23/2021 55-year-old male with COVID-19 pneumonia and PE with slight improvement on chest x-ray is stable on 4 L via oximask. Patient does get nasal congestion and saline has not improved symptoms. His oxygen saturations drop after a few minutes of having nasal cannula in place. No labs were done today. He is on once daily dexamethasone and continues on baricitinib. Patient is about ready to discharge on a Ventimask and go home for continued recovery. Patient will be reevaluated in the morning for discharge on oxygen at home. 03/24/2021ay of discharge Patient continues to improve. He is on 2 L nasal cannula and is requesting to go home. He also needs Eliquis 5 mg twice daily for his pulmonary embolism. He will follow up with his primary care provider. - Patient Instructions Diet: Usual Diet as Tolerated Activity: As Tolerated Driving: May Drive Today Showering/Bathing: May Shower Notify Provider of: Fever, Nausea and/or Vomiting Other/Special Instructions: Follow-up with primary care provider. Please continue to follow your oxygen saturations at home. - Discharge Plan *PRESCRIPTION DRUG MONITORING PROGRAM REVIEWED*: No *COPY OF PRESCRIPTION DRUG MONITORING REPORT IN PATIENT [place]: No Prescriptions/Med Rec: Apixaban [Eliquis] 5 mg PO BID #60 tablet Fluticasone Propionate [Flonase] 2 sprays NASBOTH DAILY #1 bottle Home Medications: Home Meds Lisinopril/Hydrochlorothiazide [Lisinopril-Hctz 20-25 mg Tab] 1 tab PO DAILY 1 05/15/20 [History] Apixaban [Eliquis] 5 mg PO BID #60 tablet 03/24/21 [Rx] Fluticasone Propionate [Flonase] 2 sprays NASBOTH DAILY #1 bottle 03/24/21 [Rx] Oxygen Therapy Mode: Nasal Cannula Oxygen Flow Rate (L/min): 2 (2 L at rest and 5 L with activity) Patient Handouts: COVID-19, 10 Things You Can Do to Manage Your COVID-19 Symptoms at Home - [facility] (11/02/2020), Sepsis, Diagnosis, Adult, Pulmonary Embolism, Apixaban oral tablets, Venous Thromboembolism Prevention Forms: ED Department Discharge Referrals: Alexy Rodriguez NP [Ordering Only Provider] - 05/15/21 3:30 pm (This appt. is for urology, you will be put on a wait list for a sooner appt. and may be with a different provider. This appt. is in [facility] time and you should arrive at 3:15) Ana M Goldstein NP [Primary Care Provider] - - Discharge Summary/Plan Comment DC Time >30 min.: Yes Total # of Minutes for Discharge Time: 45 Total time spent includes seeing the patient, doing discharge paperwork, and arranging care. - General Info Date of Service: 03/24/21 Admission Dx/Problem (Free Text: Admission Diagnosis/Problem Admission Diagnosis/Problem acute respiratory failure associated with COVID-19 pneumonia and pulmonary emboli. Subjective Update: Patient states he is feeling much better would like to go home. Functional Status: Reports: Pain Controlled - Review of Systems General: Reports: No Symptoms HEENT: Reports: No Symptoms Pulmonary: Reports: Cough Cardiovascular: Reports: No Symptoms Gastrointestinal: Reports: No Symptoms Musculoskeletal: Reports: No Symptoms - Patient Data Vitals - Most Recent: Last Vital Signs Temp 98.1 F 03/24/21 05:04 Pulse 63 03/24/21 05:04 Resp 14 03/24/21 05:04 BP 111/56 L 03/24/21 09:15 Pulse Ox 88 L 03/24/21 08:01 Weight - Most Recent: 187 lb 14.4 oz I&O - Last 24 hours: Intake & Output 03/23/21 03/24/21 03/24/21 22:59 06:59 14:59 Intake Total 2275 300 120 Output Total 800 675 Balance 1475 -375 120 Lab Results - Last 24 hrs: Laboratory Results - last 24 hr 03/24/21 03/24/21 Range/Units 05:00 05:00 WBC 17.37 H (4.23-9.07) K/mm3 RBC 4.44 L (4.63-6.08) M/mm3 Hgb 13.1 L (13.7-17.5) gm/dl Hct 39.3 L (40.1-51.0) % MCV 88.5 (79.0-92.2) fl MCH 29.5 (25.7-32.2) pg MCHC 33.3 (32.2-35.5) g/dl RDW Std Deviation 44.0 H (35.1-43.9) fL Plt Count 374 H (163-337) K/mm3 MPV 10.0 (9.4-12.3) fl Neut % (Auto) 72.5 H (34.0-67.9) % Lymph % (Auto) 8.6 L (21.8-53.1) % Starr % (Auto) 12.6 H (5.3-12.2) % Eos % (Auto) 0.3 L (0.8-7.0) Baso % (Auto) 0.2 (0.1-1.2) % Neut # (Auto) 12.60 H (1.78-5.38) K/mm3 Lymph # (Auto) 1.49 (1.32-3.57) K/mm3 Starr # (Auto) 2.19 H (0.30-0.82) K/mm3 Eos # (Auto) 0.06 (0.04-0.54) K/mm3 Baso # (Auto) 0.03 (0.01-0.08) K/mm3 Manual Slide Review Abnormal smear Sodium 134 L (136-145) mEq/L Potassium 4.7 (3.5-5.1) mEq/L Chloride 101 (98-107) mEq/L Carbon Dioxide 25 (21-32) mEq/L Anion Gap 12.7 (5-15) BUN 31 H (7-18) mg/dL Creatinine 0.9 (0.7-1.3) mg/dL Est Cr Clr Drug Dosing 93.73 mL/min Estimated GFR (MDRD) > 60 (>60) mL/min BUN/Creatinine Ratio 34.4 H (14-18) Glucose 103 H (70-99) mg/dL Calcium 8.1 L (8.5-10.1) mg/dL Phosphorus 3.2 (2.6-4.7) mg/dL Magnesium 2.2 (1.8-2.4) mg/dL Total Bilirubin 0.5 (0.2-1.0) mg/dL AST 18 (15-37) U/L ALT 59 (16-63) U/L Alkaline Phosphatase 53 (46-116) U/L C-Reactive Protein < 0.2 (<1.0) mg/dL Total Protein 5.5 L (6.4-8.2) g/dl Albumin 2.5 L (3.4-5.0) g/dl Globulin 3.0 gm/dL Albumin/Globulin Ratio 0.8 L (1-2) Med Orders - Current: Current Medications Acetaminophen (Acetaminophen 325 Mg Tab) 650 mg PO Q4H PRN PRN Reason: Pain (Mild 1-3)/fever Albuterol (Albuterol 6.7 Gm Inhaler) 0 gm INH Q2H PRN PRN Reason: SOB/wheezing Albuterol/Ipratropium (Albuterol/Ipratropium 3.0-0.5 Mg/3 Ml Neb Soln) 3 ml NEB Q4H PRN PRN Reason: Shortness Of Breath/wheezing Last Admin: 03/23/21 11:35 Dose: 3 ml Documented by: Apixaban (Apixaban 5 Mg Tab) 5 mg PO BID [facility] Last Admin: 03/24/21 09:16 Dose: 5 mg Documented by: Baricitinib (Baricitinib 2 Mg Tab) 4 mg PO DAILY [facility] Stop: 04/01/21 09:01 Last Admin: 03/24/21 09:15 Dose: 4 mg Documented by: Cholecalciferol (Cholecalciferol (Vitamin D3) 5,000 Unit Cap) 5,000 unit PO DAILY [facility] Last Admin: 03/24/21 09:16 Dose: 5,000 unit Documented by: Docusate Sodium (Docusate Sodium 100 Mg Cap) 100 mg PO BID PRN PRN Reason: Constipation Fluticasone Propionate (Fluticasone Propionate Nasal [place] 16 Gm Bottle) 0 gm NASBOTH DAILY [facility] Last Admin: 03/24/21 09:16 Dose: 2 spray Documented by: Lisinopril (Lisinopril 20 Mg Tab) 20 mg PO DAILY [facility] Last Admin: 03/24/21 09:15 Dose: 20 mg Documented by: Ondansetron HCl (Ondansetron 4 Mg Tab.Dis) 4 mg PO Q4H PRN PRN Reason: nausea, able to take PO Oxycodone HCl (Oxycodone 5 Mg Tab) 5 mg PO Q4H PRN PRN Reason: Pain (moderate 4-6) Oxymetazoline HCl (Oxymetazoline 0.05% Nasal [place] 30 Ml Bottle) 0 ml JOYCE Q12H PRN PRN Reason: Other Last Admin: 03/24/21 14:23 Dose: 2 spray Documented by: Sodium Chloride (Sodium Chloride 0.9% 10 Ml Syringe) 10 ml FLUSH ASDIRECTED PRN PRN Reason: Keep Vein Open Last Admin: 03/15/21 15:53 Dose: 10 ml Documented by: Sodium Chloride (Sodium Chloride 0.65% Nasal [place] 45 Ml Bottle) 1 ml JOYCE Q1H PRN PRN Reason: nasal congestion Last Admin: 03/19/21 18:17 Dose: 1 spray Documented by: Temazepam (Temazepam 15 Mg Cap) 15 mg PO BEDTIME PRN PRN Reason: Sleep Zinc Sulfate (Zinc Sulfate 220 Mg Cap) 220 mg PO DAILY [facility] Last Admin: 03/24/21 09:16 Dose: 220 mg Documented by: Discontinued Medications Acetaminophen (Acetaminophen 325 Mg Tab) 975 mg PO Q4H PRN PRN Reason: Pain/Fever Apixaban (Apixaban 5 Mg Tab) 10 mg PO ONETIME ONE Stop: 03/15/21 17:26 Last Admin: 03/15/21 17:40 Dose: 10 mg Documented by: Apixaban (Apixaban 5 Mg Tab) 5 mg PO DAILY [facility] Apixaban (Apixaban 5 Mg Tab) 10 mg PO BID [facility] Stop: 03/22/21 09:01 Last Admin: 03/22/21 08:04 Dose: 10 mg Documented by: Dexamethasone (Dexamethasone 4 Mg/Ml Sdv) 6 mg IVPUSH ONETIME ONE Stop: 03/15/21 16:43 Last Admin: 03/15/21 17:26 Dose: 6 mg Documented by: Dexamethasone (Dexamethasone 4 Mg/Ml 5 Ml Mdv) 12 mg IV Q24H [facility] Last Admin: 03/18/21 17:34 Dose: 12 mg Documented by: Dexamethasone (Dexamethasone 6 Mg Tablet) 6 mg PO BID [facility] Last Admin: 03/21/21 08:46 Dose: 6 mg Documented by: Dexamethasone (Dexamethasone 6 Mg Tablet) 6 mg PO ONETIME ONE Stop: 03/19/21 11:31 Last Admin: 03/19/21 11:32 Dose: 6 mg Documented by: Dexamethasone (Dexamethasone 6 Mg Tablet) 6 mg PO DAILY [facility] Stop: 03/24/21 09:01 Last Admin: 03/24/21 09:15 Dose: 6 mg Documented by: Hydrochlorothiazide (Hydrochlorothiazide 25 Mg Tab) 25 mg PO DAILY [facility] Last Admin: 03/20/21 08:02 Dose: 25 mg Documented by: Sodium Chloride (Normal Saline) 1,000 mls @ 1,000 mls/hr IV .BOLUS [facility] Last Admin: 03/15/21 15:53 Dose: 1,000 mls/hr Documented by: Remdesivir 200 mg/ Sodium (Chloride) 250 mls @ 250 mls/hr IV ONETIME ONE Stop: 03/15/21 16:43 Last Admin: 03/15/21 17:26 Dose: 250 mls/hr Documented by: Remdesivir 100 mg/ Sodium (Chloride) 250 mls @ 250 mls/hr IV Q24H [facility] Stop: 03/19/21 17:01 Last Admin: 03/19/21 16:27 Dose: 250 mls/hr Documented by: Azithromycin 500 mg/ Sodium (Chloride) 250 mls @ 250 mls/hr IV Q24H [facility] Stop: 03/20/21 13:29 Last Admin: 03/20/21 11:57 Dose: 250 mls/hr Documented by: Ceftriaxone Sodium 2 gm/ (Sodium Chloride) 100 mls @ 200 mls/hr IV Q24H [facility] Stop: 03/22/21 13:59 Last Admin: 03/22/21 12:34 Dose: 200 mls/hr Documented by: Morphine Sulfate (Morphine 2 Mg/Ml Syringe) 2 mg IVPUSH Q2H PRN PRN Reason: Pain (severe 7-10) Stop: 03/17/21 06:45 Ondansetron HCl (Ondansetron 4 Mg/2 Ml Sdv) 4 mg IVPUSH ONETIME ONE Stop: 03/15/21 15:05 Last Admin: 03/15/21 15:53 Dose: 4 mg Documented by: - Exam Quality Assessment: Reports: Supplemental Oxygen General: Reports: Alert, Oriented HEENT: Reports: Pupils Equal, Mucous Membr. Moist/[place] Neck: Reports: Supple Lungs: Reports: Normal Respiratory Effort, Crackles (Bibasilar) Cardiovascular: Reports: Regular Rate, Regular Rhythm GI/Abdominal Exam: Normal Bowel Sounds, Soft, Non-Tender, No Organomegaly, No Di stention, No Abnormal Bruit, No Mass Extremities: Normal Inspection, Normal Range of Motion, Non-Tender, No Pedal Edema, Normal Capillary Refill Skin: Reports: Warm, Dry, Intact Psy/Mental Status: Reports: Alert, Normal Affect, Normal Mood
== END 2021-03-24 17:16 | disposition home or self-care (01) | DRG 137 ==
LOC: JD.ED 14:18 → JD.MS 18:57
PROVIDERS: ADMIT Internal Medicine; ATTEND Internal Medicine
PROC: XW033E5 Introduction of Remdesivir Anti-infective into Peripheral Vein, Percutaneous Approach, New Technology Group 5 (ICD-10-PCS; principal; 2021-03-15)
PROC: 3E0333Z Introduction of Anti-inflammatory into Peripheral Vein, Percutaneous Approach (ICD-10-PCS; 2021-03-15)
PROC: 5A0935A Assistance with Respiratory Ventilation, Less than 24 Consecutive Hours, High Flow/Velocity Cannula (ICD-10-PCS; 2021-03-16)
PROC: 3E0333Z Introduction of Anti-inflammatory into Peripheral Vein, Percutaneous Approach (ICD-10-PCS; 2021-03-19)
PROC: XW0DXM6 Introduction of Baricitinib into Mouth and Pharynx, External Approach, New Technology Group 6 (ICD-10-PCS; 2021-03-19)
DX: U07.1 COVID-19 (principal); J12.82 Pneumonia due to coronavirus disease 2019; J96.01 Acute respiratory failure with hypoxia; I26.99 Other pulmonary embolism without acute cor pulmonale; I10 Essential (primary) hypertension; Z79.899 Other long term (current) drug therapy
CPT/HCPCS: 0240U; 36415; 71045; 71045-26; 71275; 71275-26; 74176; 74176-26; 80053; 82306; 83605; 83735; 84100; 84145; 85025; 85379; 85610; 85730; 86140; 93005; 94640; 94667; 94668; 94762; 96365; 96375; 99285-25; A9270-GY; J0456; J0696; J1100; J2405; J7030; J7050; J7620-GY; J8540